=== PATIENT | female | born 1935 | race Hispanic/Latino ===

== ENCOUNTER 2017-07-02 11:41 | Day surgery (SDC) | payer MEDICARE ==
[2017-07-02] MEDS ORDERED: Sodium Chloride 0.9% 20 ML ONE (11:58)
[2017-07-02] MEDS ORDERED: Acetaminophen 500 MG TAB PO SCH (12:00)
[2017-07-02] MEDS ORDERED: diphenhydrAMINE 25 MG CAP PO SCH (12:00)
[2017-07-02 18:36] VITALS: BP 169/72; TEMP 97.6
[2017-07-02 19:49] LABS: Acanthocytes SLIGHT = 1-5 cells (100X) (None Seen); Anisocytosis SLIGHT = 6-15 cells (100X) (0-5/hpf); Hematocrit 28.4 % (36.0-47.0); Hypochromia SLIGHT = 6-15 cells (100X) (0-5/hpf); Mean Platelet Volume 8.9 fL (7.4-10.4); Neutrophil 78 % (42-75); Ovalocytes SLIGHT = 2-5 cells (100X) (0-1/hpf); Red Blood Cell (RBC) Count 2.86 mill/uL (4.20-5.40); White Blood Cell (WBC) Count 4.1 thou/uL (4.8-10.8)
== END 2017-07-02 18:44 | disposition home or self-care (01) ==
LOC: ONC/OP 11:41
PROVIDERS: ATTEND Nurse Practitioner Acute Care
PROC: 30233N1 Transfusion of Nonautologous Red Blood Cells into Peripheral Vein, Percutaneous Approach (ICD-10-PCS; principal; 2017-07-02)
DX: D64.9 Anemia, unspecified (principal); D69.59 Other secondary thrombocytopenia; E11.21 Type 2 diabetes mellitus with diabetic nephropathy; E11.22 Type 2 diabetes mellitus with diabetic chronic kidney disease; N18.4 Chronic kidney disease, stage 4 (severe); I25.10 Atherosclerotic heart disease of native coronary artery without angina pectoris; M19.90 Unspecified osteoarthritis, unspecified site; D63.1 Anemia in chronic kidney disease; E11.51 Type 2 diabetes mellitus with diabetic peripheral angiopathy without gangrene; F41.8 Other specified anxiety disorders; M54.5 Low back pain; G89.29 Other chronic pain; Z79.02 Long term (current) use of antithrombotics/antiplatelets; Z79.82 Long term (current) use of aspirin; Z79.899 Other long term (current) drug therapy; Z88.8 Allergy status to other drugs, medicaments and biological substances; Z98.49 Cataract extraction status, unspecified eye; Z95.1 Presence of aortocoronary bypass graft; Z90.49 Acquired absence of other specified parts of digestive tract; Z98.890 Other specified postprocedural states
CPT/HCPCS: 36430; 85025; 86850; 86900; 86901; A4216; P9016

== ENCOUNTER 2017-07-28 09:17 | Day surgery (SDC) | payer MEDICARE ==
[2017-07-28] MEDS ORDERED: Sodium Chloride 0.9% 20 ML ONE (09:34)
[2017-07-28] MEDS ORDERED: Acetaminophen 500 MG TAB PO SCH (10:00)
[2017-07-28] MEDS ORDERED: diphenhydrAMINE 25 MG CAP PO SCH (10:00)
[2017-07-28 17:17] VITALS: BP 194/85; TEMP 97.8
[2017-07-28 17:45] LABS: #Eosinphils 0.2 thou/uL (0.0-0.7); #Lymphocytes 0.7 thou/uL (1.20-3.40); #Monocytes 0.5 thou/uL (0.11-0.59); #Neutrophils 4.2 thou/uL (1.40-6.50); %Basophils 0.5 % (0.0-1.0); %Lymphocytes 12.4 % (21.0-51.0); %Monocytes 8.2 % (0.0-10.0); Mean Platelet Volume 8.3 fL (7.4-10.4); Red Blood Cell (RBC) Count 3.39 mill/uL (4.20-5.40); White Blood Cell (WBC) Count 5.5 thou/uL (4.8-10.8)
== END 2017-07-28 18:01 | disposition home or self-care (01) ==
LOC: ONC/OP 09:17
PROVIDERS: ATTEND Internal Medicine Medical Oncology
PROC: 30233N1 Transfusion of Nonautologous Red Blood Cells into Peripheral Vein, Percutaneous Approach (ICD-10-PCS; principal; 2017-07-28)
DX: D64.9 Anemia, unspecified (principal); D69.6 Thrombocytopenia, unspecified; E11.22 Type 2 diabetes mellitus with diabetic chronic kidney disease; N18.4 Chronic kidney disease, stage 4 (severe); E11.21 Type 2 diabetes mellitus with diabetic nephropathy; E11.51 Type 2 diabetes mellitus with diabetic peripheral angiopathy without gangrene; E78.5 Hyperlipidemia, unspecified; M19.90 Unspecified osteoarthritis, unspecified site; I25.10 Atherosclerotic heart disease of native coronary artery without angina pectoris; Z88.8 Allergy status to other drugs, medicaments and biological substances; Z95.1 Presence of aortocoronary bypass graft; Z90.49 Acquired absence of other specified parts of digestive tract; Z98.890 Other specified postprocedural states
CPT/HCPCS: 36415; 36430; 85025; 86850; 86900; 86901; A4216; P9016

== ENCOUNTER 2017-09-25 12:36 | Emergency (ER) | payer MEDICARE ==
[2017-09-25 13:10] LABS: Mean Corpuscular HGB CONC 30.6 g/dL (32.0-36.0); Mean Corpuscular Hemoglobin 32.3 pg (27.0-31.0); RBC Distribution Width 16.8 % (11.5-14.5); Red Blood Cell (RBC) Count 2.78 mill/uL (4.20-5.40); White Blood Cell (WBC) Count 5.4 thou/uL (4.8-10.8)
[2017-09-25 13:29] LABS: ALT (SGPT) 20 U/L (8-55); AST (SGOT) 25 U/L (5-34); Albumin 3.1 g/dL (3.4-4.8); Alkaline Phosphatase 94 U/L (40-150); Anion Gap 12 mmol/L (10-20); BUN (Urea Nitrogen) 75 mg/dL (9.8-20.1); Bilirubin, Total 0.6 mg/dL (0.2-1.2); Calc. Creatinine Clearance 0 mL/min (70-130); Calcium 8.6 mg/dL (7.8-10.44); Carbon Dioxide 17 mmol/L (23-31); Chloride 111 mmol/L (98-107); Estimated GFR-MDRD 14; Globulin 3.6 g/dL (2.4-3.5); Glucose 165 mg/dL (83-110); Potassium 5.1 mmol/L (3.5-5.1); Protein, Total 6.7 g/dL (6.0-8.3); Sodium 135 mmol/L (136-145)
[2017-09-25 13:30] LABS: #Eosinphils 0.1 thou/uL (0.0-0.7); #Lymphocytes 0.8 thou/uL (1.20-3.40); #Monocytes 0.5 thou/uL (0.11-0.59); %Basophils 0.5 % (0.0-1.0); %Eosinophils 2.7 % (0.0-10.0); %Lymphocytes 13.8 % (21.0-51.0); %Monocytes 8.9 % (0.0-10.0); %Neutrophils 74.1 % (42.0-75.0); Anisocytosis SLIGHT = 6-15 cells (100X) (0-5/hpf); MDiff Complete? YES; Macrocytosis SLIGHT = 6-15 cells (100X) (0-5/hpf); Mean Platelet Volume 9.3 fL (7.4-10.4); PLT Morphology Comment Appears Decreased; Platelet Count 77 thou/uL (130-400)
[2017-09-25 14:19] LABS: Bilirubin Small (Negative); Blood, Urine Negative (Negative); Clarity CLOUDY (Clear); Glucose, Urine (Dipstick) Negative (Negative); Leukocyte Negative (Negative); Nitrite Negative (Negative); Protein, Urine (Dipstick) 300 mg/dL (Neg-Trace); Specific Gravity, Urine 1.019 (1.002-1.036); pH, Urine 5.5 (5.0-9.0)
[2017-09-25 14:21] LABS: RBC/HPF 0-3 HPF (0-3)
[2017-09-25 14:22] LABS: Pathc Cast-AUWi Flag 3.52 (0-2.49); Yeast-AUWi Flag 67.3 (0-25.0)
[2017-09-25 14:32] LABS: Bacteria/HPF 2+ HPF (None Seen); Hyaline Casts/LPF 0-3 HYALINE CAST LPF (0-3 Hyaline); Manual Microscopic Reviewed? No Path Casts Seen; Renal Epithelial None Seen HPF (0-3); Transitional Epithelial NONE SEEN HPF (0-3); Yeast-All Forms None Seen HPF (None Seen)
== END 2017-09-25 15:44 | disposition home or self-care (01) ==
LOC: ERS 12:36
DX: G25.9 Extrapyramidal and movement disorder, unspecified (principal); D64.9 Anemia, unspecified; E11.9 Type 2 diabetes mellitus without complications; I25.10 Atherosclerotic heart disease of native coronary artery without angina pectoris; I10 Essential (primary) hypertension; M19.90 Unspecified osteoarthritis, unspecified site; I25.2 Old myocardial infarction; F41.9 Anxiety disorder, unspecified; F32.9 Major depressive disorder, single episode, unspecified; Z79.82 Long term (current) use of aspirin; Z79.4 Long term (current) use of insulin; Z79.899 Other long term (current) drug therapy
CPT/HCPCS: 36415; 51701; 80053; 81003; 81015; 85025; 93005; A4353

== ENCOUNTER 2017-10-14 15:02 | Day surgery (SDC) | payer MEDICARE ==
[2017-10-14 15:48] VITALS: BMI 30.9
[2017-10-14] MEDS ORDERED: Sodium Chloride 0.9% 10 ML ONE (15:53)
[2017-10-14] MEDS ORDERED: diphenhydrAMINE 25 MG CAP PO SCH (18:45)
[2017-10-14] MEDS ORDERED: Acetaminophen 500 MG TAB PO SCH (18:45)
[2017-10-14] MEDS ORDERED: FLU VACC TS2017-18 (>65YR) 0.5 ML SYRINGE IM ONE (21:00)
[2017-10-14] MEDS ORDERED: Isosorbide Dinitrate 20 MG TAB PO SCH (22:30)
[2017-10-14] MEDS ORDERED: hydrALAZINE 25 MG TAB PO SCH (22:30)
[2017-10-14] MEDS ORDERED: Carvedilol 6.25 MG TAB PO SCH (22:30)
[2017-10-14] MEDS ORDERED: HYDROcodone/Acetaminophen 5/325 mg Tablet PO PRN (22:30)
[2017-10-15 00:48] VITALS: BP 172/73; TEMP 97.4
[2017-10-15 01:15] LABS: #Basophils 0.1 thou/uL (0.0-0.2); #Eosinphils 0.2 thou/uL (0.0-0.7); #Lymphocytes 0.8 thou/uL (1.20-3.40); #Monocytes 0.5 thou/uL (0.11-0.59); #Neutrophils 4.1 thou/uL (1.40-6.50); %Basophils 0.9 % (0.0-1.0); %Eosinophils 4.3 % (0.0-10.0); %Lymphocytes 14.6 % (21.0-51.0); %Monocytes 9.1 % (0.0-10.0); %Neutrophils 71.1 % (42.0-75.0); Hemoglobin 10.4 g/dL (12.0-16.0); Mean Corpuscular Hemoglobin 31.5 pg (27.0-31.0); Mean Platelet Volume 8.4 fL (7.4-10.4); PLT Morphology Comment Appears Decreased; Platelet Count 114 thou/uL (130-400); RBC Distribution Width 17.6 % (11.5-14.5); Red Blood Cell (RBC) Count 3.31 mill/uL (4.20-5.40); White Blood Cell (WBC) Count 5.8 thou/uL (4.8-10.8)
[2017-10-15] MEDS ORDERED: hydrALAZINE 25 MG TAB PO SCH (09:00)
[2017-10-15] MEDS ORDERED: Carvedilol 6.25 MG TAB PO SCH (09:00)
[2017-10-15] MEDS ORDERED: Isosorbide Dinitrate 20 MG TAB PO SCH (09:00)
== END 2017-10-15 01:08 | disposition home or self-care (01) ==
LOC: ONC/OP 15:02 → 3SE 15:09 → ONC/OP 10-15 01:08
PROVIDERS: ATTEND Internal Medicine Medical Oncology
PROC: 30233N1 Transfusion of Nonautologous Red Blood Cells into Peripheral Vein, Percutaneous Approach (ICD-10-PCS; principal; 2017-10-14)
DX: D64.9 Anemia, unspecified (principal); D69.59 Other secondary thrombocytopenia; Z88.8 Allergy status to other drugs, medicaments and biological substances; Z79.82 Long term (current) use of aspirin; Z79.02 Long term (current) use of antithrombotics/antiplatelets; Z79.4 Long term (current) use of insulin; Z79.899 Other long term (current) drug therapy
CPT/HCPCS: 36415; 36430; 85025; 86850; 86900; 86901; 90471; 90682; A4216; G0008; P9016; Q2036

== ENCOUNTER 2017-10-19 20:55 | Inpatient (IN) | payer MEDICARE ==
[2017-10-19 21:17] LABS: #Eosinphils 0.2 thou/uL (0.0-0.7); #Lymphocytes 0.9 thou/uL (1.20-3.40); #Monocytes 0.5 thou/uL (0.11-0.59); #Neutrophils 4.3 thou/uL (1.40-6.50); %Basophils 0.7 % (0.0-1.0); %Eosinophils 4.1 % (0.0-10.0); %Lymphocytes 14.4 % (21.0-51.0); %Monocytes 8.1 % (0.0-10.0); %Neutrophils 72.6 % (42.0-75.0); Hemoglobin 11.9 g/dL (12.0-16.0); Mean Corpuscular HGB CONC 31.1 g/dL (32.0-36.0); Mean Corpuscular Hemoglobin 31.5 pg (27.0-31.0); Mean Platelet Volume 7.6 fL (7.4-10.4); Platelet Count 152 thou/uL (130-400); RBC Distribution Width 18.3 % (11.5-14.5); Red Blood Cell (RBC) Count 3.77 mill/uL (4.20-5.40)
[2017-10-19 21:25] LABS: INR-International Normal Ratio 1.3; Prothrombin Time 16.9 SEC (12.0-14.7)
[2017-10-19 21:26] LABS: PTT 44.4 SEC (22.9-36.1)
[2017-10-19 21:41] LABS: ALT (SGPT) 22 U/L (8-55); AST (SGOT) 22 U/L (5-34); Albumin 3.3 g/dL (3.4-4.8); Alkaline Phosphatase 128 U/L (40-150); Anion Gap 16 mmol/L (10-20); BUN (Urea Nitrogen) 95 mg/dL (9.8-20.1); Bilirubin, Total 0.5 mg/dL (0.2-1.2); Calc. Creatinine Clearance 0 mL/min (70-130); Calcium 8.7 mg/dL (7.8-10.44); Carbon Dioxide 13 mmol/L (23-31); Chloride 116 mmol/L (98-107); Estimated GFR-MDRD 10; Globulin 4.4 g/dL (2.4-3.5); Glucose 93 mg/dL (83-110); Lipase 5 U/L (8-78); Magnesium 2.3 mg/dL (1.6-2.6); Potassium 5.7 mmol/L (3.5-5.1); Protein, Total 7.7 g/dL (6.0-8.3); Sodium 139 mmol/L (136-145)
[2017-10-19 21:45] LABS: CKMB 2.3 ng/mL (0-6.6); Troponin I 0.017 ng/mL (< 0.028)
--- NOTE | 2017-10-19 21:46 | RAD ---
PORTABLE CHEST ONE VIEW: Date: 10-19-17 Time: 9:13 p.m. History: Chest pain. FINDINGS/IMPRESSION: Comparison is made with exam of 08-07-16. Changes of median sternotomy are again seen. The heart size is borderline. The aorta is tortuous. Chr onic changes are present in the lungs bilaterally. No lobar consolidation, pneumothoraces, ivone pulm onary edema or large effusions are seen. POS: [facility]
[2017-10-19 23:05] LABS: Bilirubin Negative (Negative); Blood, Urine Moderate (Negative); Clarity TURBID (Clear); Glucose, Urine (Dipstick) Negative (Negative); Leukocyte Large (Negative); Nitrite Negative (Negative); Protein, Urine (Dipstick) 100 mg/dL (Neg-Trace); Specific Gravity, Urine 1.016 (1.002-1.036); Urobilinogen 0.2 mg/dL (0.2-1.0); pH, Urine 5.5 (5.0-9.0)
[2017-10-19 23:06] LABS: Bacteria/HPF 3+ HPF (None Seen); Squamous Epithelial 21-50 HPF (0-3)
[2017-10-19 23:07] LABS: Pathc Cast-AUWi Flag 889.53 (0-2.49); Yeast-AUWi Flag 52.5 (0-25.0)
[2017-10-19 23:08] LABS: RBC/HPF GREATER THAN 50-TNTC HPF (0-3)
[2017-10-19] MEDS ORDERED: Dextrose 50% Abboject 50 ML SYRINGE SLOW IVP PRN (23:09)
[2017-10-19] MEDS ORDERED: Dextrose 5% in Water 1,000 ML IV PRN (23:09)
[2017-10-19] MEDS ORDERED: HumaLOG 300 UNITS/3 ML VIAL SC PRN (23:09)
[2017-10-19] MEDS ORDERED: Sodium Bicarbonate 2.5 MEQ/5 ML VIAL ONE (23:10)
[2017-10-19] MEDS ORDERED: Furosemide 40 MG/4 ML VIAL ONE (23:10)
[2017-10-19 23:11] LABS: Hyaline Casts/LPF NONE SEEN LPF (0-3 Hyaline)
[2017-10-19] MEDS ORDERED: Acetaminophen 325 MG TAB PO PRN (23:11)
[2017-10-19] MEDS ORDERED: Ondansetron HCl/PF 4 MG/2 ML Vial IVP PRN (23:11)
[2017-10-19] MEDS ORDERED: Sodium Bicarb 50 MEQ/50 ML Abboject 8.4% SYRINGE ONE (23:11)
[2017-10-19] MEDS ORDERED: Insulin Regular 300 UNITS/3 ML VIAL ONE (23:16)
[2017-10-19] MEDS ORDERED: Dextrose 50% Abboject 50 ML SYRINGE ONE (23:16)
--- NOTE | 2017-10-19 23:37 | CT ---
CT STONE PROTOCOL: History: Flank pain. FINDINGS: Lack of IV and oral contrast studies decrease the sensitivity of the exam of solid organs and bowel. A small right and moderate left pleural effusion are seen. No free air or free fluid is noted in the abdomen or pelvis. There is edema in the subcutaneous fat of the wall of the abdomen and pelvis exten ding into the gluteal regions and the lower extremities. There are vascular calcifications without evidence aneurysm of the abdominal aorta. There are post op changes of cholecystectomy. A small fat containing lower anterior abdominal wall hernia is present. There are degenerative changes in the spine. No calculi are seen in the kidneys, ureters, or urinary bladder. No hydroureteronephrosis noted on either side. IMPRESSION: 1. No CT evidence of urinary calculi or obstruction. 2. Bilateral pleural effusions. POS: [facility]
[2017-10-19] MEDS ORDERED: Calcium Chloride 13.6 MEQ in Sodium Chloride 0.9% 100 ML IVPB SCH (23:45)
--- NOTE | 2017-10-19 23:57 | CT ---
CT BRAIN WITHOUT CONTRAST: History: Altered mental status. Tremors. FINDINGS: Comparison made with exam of 05-17-15. 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 The ventricular size is stable and the basilar cisterns patent. No ev idence of acute infarct, hemorrhage, midline shift, or abnormal extraaxial fluid collections. The karlee tricular size appropriate and the basal cisterns patent. Bony calvarium is intact. There is mild muco michael disease in the paranasal sinuses. IMPRESSION: No CT evidence of acute intracranial process. POS: [facility]
[2017-10-20] MEDS ORDERED: Milk Of Magnesia 30 ML UDCUP PO PRN (00:12)
[2017-10-20] MEDS ORDERED: Guaifenesin DM 100-10/5 ML UDCUP PO PRN (00:12)
[2017-10-20 01:17] LABS: Troponin I 0.015 ng/mL (< 0.028)
--- NOTE | 2017-10-20 02:16 | HP ---
Admission Date correction: October 19, 2017. PRIMARY CARE PHYSICIAN: Deena Ward M.D. PRESENTING COMPLAINT: Confusion. HISTORY OF PRESENT ILLNESS: Ms. Wen York is an 82-year-old female with stage 4 CKD, CHF, type 2 diabetes mellitus, CAD, status post 3 stents, hypertension, history of MIs, who presented to the emergency room with acute confusion. According to her daughter, she was brought to the emergency room last month for shakes and jerky movements. Her workup then was negative and she was sent home; however, she reports since then she has been progressively getting worse and would have episodes of "facing out" every once in a while. Earlier today, she was found to be unresponsive to commands and speech and she was brought to the emergency room. There is no reported history of fever, chills, chest pain, shortness of breath. PAST MEDICAL HISTORY: As stated in the HPI. PAST SURGICAL HISTORY: Cataract surgery, cholecystectomy, carpal tunnel in 1992 , back surgery in 1991, CABG in 2006. FAMILY HISTORY: Reviewed and noncontributory. SOCIAL HISTORY: Does not drink alcohol, smoke cigarettes or use illicit drugs. ALLERGIES: DILTIAZEM, GLIPIZIDE, METFORMIN, METOPROLOL, PROMETHAZINE. REVIEW OF SYSTEMS: Unable to obtain due to patient's altered mental status. PHYSICAL EXAMINATION: VITAL SIGNS: Within normal limits. GENERAL: In mild distress from pain, lying comfortably in bed. HEENT: Normocephalic, atraumatic. Not pale, anicteric. PERRLA, EOMI. Dry mucous membranes. RESPIRATORY: Vesicular breath sounds bilaterally. No wheezes or rales. CARDIOVASCULAR: S1, S2 only. No murmurs, rubs or gallops. Regular rate and rhythm. NECK: Supple. No JVD. Full range of movement. ABDOMEN: Lower abdominal tenderness without guarding or rebound. Bowel sounds positive. No hepatosplenomegaly. MUSCULOSKELETAL: No obvious deformity. No edema. SKIN: Chronic venous stasis ulcers of lower extremities bilaterally, worse on the right, with 3 to 4 obvious ulcers, covered in, clean and dry dressing. NEUROLOGIC: Lethargic, oriented to time and place. Unable to fully cooperate with the examination due to likely combination of lethargy and acute encephalopathy. PSYCHIATRIC: Unable to cooperate. LABORATORY DATA: CBC was largely unremarkable. INR was 1.3. Chemistry showed potassium of 5.7 with BUN and creatinine of 95/4.4. BNP was 2500. Troponin initially 0.017. TSH 3.0254. Chest x-ray showed no pulmonary vascular congestion. Urinalysis revealed turbid yellow urine with leukocyte esterase increased WBC and white blood cell count and bacteria. Home Medications: Reviewed and charted. ASSESSMENT AND PLAN: 1. Acute encephalopathy, likely secondary to urinary tract infection. She had abdominal tenderness. CT abdomen showed no pathology. Urinalysis was also grossly abnormal. She has been started on IV levofloxacin. Urine and blood cultures have been taken. We will follow up on the results. 2. History of diastolic congestive heart failure. Her BNP was elevated on arrival, but clinically does not look to be in acute congestive heart failure, even though she has elevated BNP. Her mucous membranes are also dry. She has received 1 dose of IV furosemide in the emergency room. We will hold further doses and have Cardiology evaluate in the morning. 3. Acute kidney injury on chronic kidney disease, stage 4. The patient presents with acute encephalopathy and seems to have had poor p.o. intake with some dry mucous membranes on examination. Nephrology will be consulted. She received 1 dose of furosemide. We will follow up a.m. creatinine. If improving , then might continue on furosemide. Otherwise, she might actually need to be hydrated. 4. Type 2 diabetes mellitus. We will place on sliding scale insulin, fingerstick glucose before meals and at bedtime with diabetic diet and hypoglycemia protocol. 5. Coronary artery disease, status post coronary artery bypass graft. She is currently chest pain free. We will resume home medications once has been confirmed. 6. Hyperlipidemia. We will resume atorvastatin. 7. We will monitor ins and outs and weigh the patient daily as well. MTDD
[2017-10-20 04:15] LABS: #Basophils 0.1 thou/uL (0.0-0.2); #Eosinphils 0.2 thou/uL (0.0-0.7); #Lymphocytes 0.6 thou/uL (1.20-3.40); #Monocytes 0.4 thou/uL (0.11-0.59); #Neutrophils 3.8 thou/uL (1.40-6.50); %Eosinophils 3.6 % (0.0-10.0); %Lymphocytes 11.6 % (21.0-51.0); %Monocytes 8.6 % (0.0-10.0); %Neutrophils 75.1 % (42.0-75.0); Hemoglobin 10.3 g/dL (12.0-16.0); Mean Corpuscular HGB CONC 31.5 g/dL (32.0-36.0); Mean Corpuscular Hemoglobin 31.2 pg (27.0-31.0); Mean Corpuscular Volume 99.1 fl (81.0-99.0); Mean Platelet Volume 7.7 fL (7.4-10.4); Platelet Count 134 thou/uL (130-400)
[2017-10-20 04:25] LABS: Anion Gap 13 mmol/L (10-20); BUN (Urea Nitrogen) 95 mg/dL (9.8-20.1); Calc. Creatinine Clearance 11 mL/min (70-130); Calcium 9.1 mg/dL (7.8-10.44); Carbon Dioxide 17 mmol/L (23-31); Chloride 116 mmol/L (98-107); Estimated GFR-MDRD 10; Glucose 96 mg/dL (83-110); Potassium 4.9 mmol/L (3.5-5.1); Sodium 141 mmol/L (136-145)
[2017-10-20 04:31] LABS: Troponin I 0.016 ng/mL (< 0.028)
[2017-10-20] MEDS ORDERED: Furosemide 20 MG/2 ML VIAL SLOW IVP SCH (06:00)
[2017-10-20 07:51] VITALS: BMI 31.7
[2017-10-20] MEDS ORDERED: Non-Formulary Item 1 EACH (Gluc Su/Chondro Su A/Vit C/Mn [Glucosamine 1,500 Complex Capsu PO SCH (09:00)
[2017-10-20] MEDS ORDERED: Epoetin (ESRD) 10,000 UNITS/ML VIAL SC SCH (09:00)
[2017-10-20] MEDS: Heparin 5,000 UNITS/ML VIAL SC SCH ×3 (09:26→21:35)
[2017-10-20] MEDS: Fish Oil 1,000 MG CAP PO SCH ×2 (09:26→21:34)
[2017-10-20] MEDS: Folic Acid/Vit B Comp W-C PO SCH ×2 (09:26→21:35)
[2017-10-20] MEDS: Sodium Bicarbonate Tab 325 MG TAB PO SCH ×2 (09:27→21:35)
[2017-10-20] MEDS: Docusate 100 MG CAP PO SCH ×2 (09:27→21:36)
[2017-10-20] MEDS: Famotidine 20 MG TAB PO SCH (09:27)
[2017-10-20] MEDS: Ferrous Sulfate 325 MG TAB PO SCH ×2 (09:27→17:27)
[2017-10-20] MEDS: Gabapentin 300 MG CAP PO SCH ×2 (09:27→21:34)
[2017-10-20] MEDS: Aspirin 81 mg Enteric Coated Tablet PO SCH (09:28)
[2017-10-20] MEDS: Isosorbide Dinitrate 20 MG TAB PO SCH ×2 (09:28→21:34)
[2017-10-20] MEDS: hydrALAZINE 25 MG TAB PO SCH ×2 (09:28→21:35)
[2017-10-20] MEDS: Clopidogrel Bisulfate 75 MG TAB PO SCH (09:28)
[2017-10-20] MEDS: Carvedilol 6.25 MG TAB PO SCH ×2 (09:29→21:36)
[2017-10-20] MEDS: HumaLOG 300 UNITS/3 ML VIAL SC SCH ×2 (09:29→21:36)
[2017-10-20] MEDS ORDERED: Sodium Chloride 0.9% 1,000 ML IV SCH (09:45)
--- NOTE | 2017-10-20 10:07 | PRG ---
DATE OF SERVICE: 10/20/2017 SUBJECTIVE: Ms. York is an 82-year-old female who was admitted for mental status change s. She was also noted to have an acute kidney injury on top of her chronic renal failure. Her basel ine creatinine is in the mid 3s, it is currently more than 4 mg percent. On exam, the patient looks dehydrated. According to the daughter, she has decreased p.o. intake in the last several days. We are being consulted for further management of this acute kidney injury on top of her chronic renal failure. REVIEW OF SYSTEMS: Decreased appetite. No nausea, no vomiting. Decreased energy level. Positive f or confusion. No diarrhea, no constipation, no hematochezia, no melena, no hematemesis, no fever or chills. No dysuria. No chest pain or shortness of breath. No headache, no diplopia. MEDICATIONS: Currently on [place] 10/325 q.4; Elavil 25 mg at bedtime; Ecotrin 81 mg tab daily; Lipito r 20 mg at bedtime; Plavix 75 mg once a day; Coreg 6.25 mg p.o. b.i.d.; Epogen 10,000 units subcu Fri, Friday, and Friday; ferrous sulfate 325 mg once a day; fish oil 2000 mg p.o. b.i.d.; furosemi de 20 mg IV q.12; Humalog as directed; heparin 5000 units subcu b.i.d.; Levaquin 250 mg IV daily. PAST MEDICAL HISTORY: 1. Chronic renal failure secondary to a possible diabetic nephropathy. 2. Status post congestive heart failure. 3. Coronary artery disease. 4. Type 2 diabetes mellitus. 5. Chronic anemia. 6. Peripheral vascular disease. 7. Status post TIA. 8. History of sciatica. 9. Status post pneumonia. 10. Chronic obstructive pulmonary disease. PAST SURGICAL HISTORY: 1. Status post back surgery. 2. Status post intubation. 3. Status post appendectomy. 4. Status post eye surgery. 5. Status post stent placement of the lower extremities. 6. Status post cardiac catheterization. 7. Status post CABG. 8. Status post cholecystectomy. 9. Status post cataract surgery. 10. Status post carpal tunnel repair. 11. Status post upper and lower GI endoscopy. 12. Status post bladder suspension repair. 13. Status post left ankle fracture. SOCIAL HISTORY: Lives in [place], lives with her daughter. She is . Status post blood transfu kathrine. 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 Education, 2nd grade. Alcohol none. Recent smoking. Four children. ALLERGIES: None. IMMUNIZATIONS: Up to date. HOSPITALIZATIONS: Please see past medical history. FAMILY HISTORY: No family history of ESRD. PHYSICAL EXAMINATION: VITAL SIGNS: Blood pressure is noted at 130/70, heart rate 70. GENERAL: Awake, alert, comfortable, not in distress. SKIN: Adequate turgor. HEENT: Slightly pale conjunctivae, anicteric sclerae. NECK: No neck mass, no carotid bruits, no JVD. CHEST: No deformities. LUNGS: Decreased breath sounds. HEART: Normal sinus rhythm. No murmur, no gallops, no rubs. ABDOMEN: Globular, soft, nontender, no masses. EXTREMITIES: No edema, no deformities. LABORATORY DATA: Laboratories of 10/20/2017 were reviewed. ASSESSMENT AND PLAN: 1. Acute kidney injury on top of her chronic renal failure, consider superimposed prerenal azotemia on top of her chronic renal failure. We will initiate normal saline at 75 mL per hour. Please note that chest x-ray was reviewed and no overt congestive heart failure was noted. 2. Anemia, on 3 times a week, Epogen. My bias is to hold it off temporarily since the hemoglobin is now 10.3. 3. Due to her worsening renal dysfunction, furosemide will be placed on hold. We will be rechecking another basic metabolic panel and CBC in a.m. There is no indication for dialysis with this patient .
--- NOTE | 2017-10-20 10:40 | CON ---
DATE OF CONSULTATION: 10/20/2017 She is a 4 feet 11 inches, 157, BMI 31, obese female. She is 82 years old. Her daugh arsenio is at the bedside who gave adequate and extensive history. She has seen Dr. Goff in the offic e before numerous times. States that she basically came in because she was weak, has some back pain. Daughter thought somethi ng was rather unusual. She has had since admission a CT of the abdomen, found to have no renal calculi with bilateral pleura l effusion. Chest x-ray shows cardiomegaly with a small pleural effusion. A CT head which shows no other abnormality to speak of. The patient is nonsmoker who denies any chest pain, chills or sweats. According to the daughter with the help of a walker she is able to walk maybe 200 yards. She lives with her daughter. No fever or chills. No coughing or wheezing. PAST MEDICAL HISTORY: Extensively outlined; diabetes, CHF, renal failure, coronary disease, hyperten kathrine. PAST SURGICAL HISTORY: Bladder surgery, bypass surgery, carpal tunnel, cataracts, appendix, gallblad zoraida, previous tracheostomy, PEG 2011. MEDICATIONS: From home includes hydralazine 25, Zoloft 100, Protonix 40, ISMO 30, insulin, Lasix 20 , aspirin, Coreg 6.25, atorvastatin 20, amitriptyline 25. ALLERGIES: Multiple; CARDIZEM, GLIPIZIDE, METFORMIN, METOPROLOL, PRAVACHOL, PROMETHAZINE. SOCIAL/FAMILY HISTORY: As noted. No alcohol or tobacco abuse. REVIEW OF SYSTEMS: Ten point negative. PHYSICAL EXAMINATION: GENERAL: Awake, alert, responsive. VITAL SIGNS: Blood pressure 150/80, pulse 80, respirations 18. CHEST: Chest revealed extensive rhonchi bilaterally. CARDIOVASCULAR: Normal S1, S2, no gallops. NEUROLOGIC: Awake and responsive, extensive stasis edema. X-RAY FINDINGS: Chest x-ray shows cardiomegaly, small pleural effusion. LABORATORY: Shows a white count 5000, H&H 10 and 32, platelet 135, creatinine is 4.2, BUN is 95. Urine shows too numerous to count WBCs and RBCs. IMPRESSION: 1. Acute mental status change, probably metabolic encephalopathy. 2. Worsening renal failure. 3. Congestive heart failure. 4. Morbid obesity. 5. Bronchitis. 6. Diabetes. 7. Coronary artery disease. 8. Severe deconditioning. Pulmonary will follow while in the IMCU. She has had multiple intubations in the past. She has seen Dr. Goff, probably all due to sepsis, metabolic encephalopathy, renal failure. PLAN: I agree with present antibiotic. Aggressive PT. We will follow. This is a consultation note, 70 minutes of which 50% was spent with direct patient care.
--- NOTE | 2017-10-20 16:47 | CON ---
DATE OF CONSULTATION: 10/20/2017 REASON FOR CONSULTATION: History of diastolic congestive heart failure and coronary artery disease a nd peripheral vascular disease, now altered mental status. HISTORY OF PRESENT ILLNESS: Ms. York is taken care of by her daughter, and her daughter does an excellent job taking care of her. Patient was doing okay on Friday, which was her birthday. Yeste , she became less responsive and finally unresponsive. Daughter also noted that she was not putt ing out much urine. She called in for help and she was brought to the emergency room and admitted. The patient currently is very sleepy, wakes up, but really cannot give much history. PAST MEDICAL HISTORY: 1. History of coronary artery disease. 2. History of renal insufficiency/renal failure. 3. History of diastolic heart failure. 4. Peripheral vascular disease. MEDICATIONS: Prior to admission included, 1. Aspirin. 2. Amitriptyline. 3. Gabapentin. 4. Plavix. 5. Atorvastatin. 6. Carvedilol. 7. Hydralazine. 8. Iron. 9. Furosemide 20 mg if needed daily. 10. Sodium bicarbonate 325 mg twice a day. REVIEW OF SYSTEMS: Currently not obtainable due to mental status change. FAMILY HISTORY: Negative for heart disease at a young age. PHYSICAL EXAMINATION: GENERAL: This is a pleasant 82-year-old woman, very sleepy, does awaken to verbal stimuli and no juan alberto st pain or pressure reported. VITAL SIGNS: Blood pressure 144/42, pulse 60-70, it is sinus rhythm, it is regular, sinus on the mon itor. HEENT: Sclerae nonicteric. Mouth mucous membranes moist. NECK: Supple, no lymphadenopathy. LUNGS: Clear. CARDIAC: Normal S1, normal S2. I do not hear murmur, rub, or gallop. ABDOMEN: Soft, nontender, no hepatosplenomegaly. EXTREMITIES: Warm, dry, no clubbing or cyanosis. There is no edema. HEMATOLOGIC: No unusual bruising. CARDIOVASCULAR: As outlined above. SKIN: Warm and dry. Peripheral pulses in her feet are markedly diminished. PERTINENT LABORATORY DATA: Her creatinine is 4.26. Previous creatinine was in September, was 3.1, ba seline seems to be closer to 3. Estimated GFR is 10. Hemoglobin is 10.3. ASSESSMENT: 1. Renal failure, acute on chronic, has gone from stage 3 to 4 to stage 5. 2. Congestive heart failure, diastolic, appears compensated. 3. Hypertension. 4. Iron deficiency anemia. PLAN: 1. Continue current medical regimen. 2. We will check iron levels tomorrow to see if she could benefit from intravenous iron. She has be en iron deficient in the past. 3. We will follow with you.
[2017-10-20] MEDS: Sodium Chloride 0.9% 1,000 ML IV SCH ×2 (17:27→21:37)
--- NOTE | 2017-10-20 18:57 | PDOC.PN ---
- Subjective Encounter Start Date: 10/20/17 Encounter Start Time: 13:20 Subjective: pt up in bed states she feels much better - Objective Resuscitation Status: Resuscitation Status FULL:Full Resuscitation Vital Signs & Weight: Vital Signs (12 hours) Temp Pulse Resp BP BP Pulse Ox 10/20/17 16:00 98.6 F 67 18 140/40 L 97 10/20/17 13:00 60 144/42 H 10/20/17 11:38 98.4 F 68 18 172/59 H 100 10/20/17 09:28 67 157/49 H 10/20/17 08:16 98.4 F 67 18 90/65 100 10/20/17 08:00 98.4 F 68 18 100 Weight Admit Weight 157 lb 9 oz Weight 157 lb 1 oz I&O: 10/19/17 10/20/17 10/21/17 06:59 06:59 06:59 Intake Total 260 480 Balance 260 480 Result Diagrams: 10/20/17 03:50 10/20/17 03:50 Additional Labs: Accuchecks 10/20/17 10/20/17 10/20/17 16:46 11:07 05:41 POC Glucose 103 55 L* 86 Phys Exam - Physical Examination HEENT: PERRLA Neck: no nodes Respiratory: no wheezing, no rales Cardiovascular: RRR, no significant murmur Gastrointestinal: soft, non-tender Musculoskeletal: edema present (right ankle) Dx/Plan - Plan * acute metabolic encephalopathy * uti * diastolic heart failure stable * grant on ckd * htn * dm type 2 * cad * * plan: urine cx indicates ecoli, will continue abx. continue to monitor creatinine. hh is stable. * will monitor blood sugars * continue asa/plavix Review of Systems - Review of Systems Eyes: negative: Pain, Vision Change, Conjunctivae Inflammation, Eyelid Inflammation, Redness, Other ENT: negative: Ear Pain, Ear Discharge, Nose Pain, Nose Discharge, Nose Congestion, Mouth Pain, Mouth Swelling, Throat Pain, Throat Swelling, Other Respiratory: negative: Cough, Dry, Shortness of Breath, Hemoptysis, SOB with Excertion, Pleuritic Pain, Sputum, Wheezing Cardiovascular: negative: chest pain, palpitations, orthopnea, paroxysmal nocturnal dyspnea, edema, light headedness, other - Medications/Allergies Allergies/Adverse Reactions: Allergies Allergy/AdvReac Type Severity Reaction Status Date / Time diltiazem Allergy Verified 10/20/17 01:07 glipizide Allergy Verified 10/20/17 01:07 metformin Allergy Verified 10/20/17 01:07 metoprolol Allergy Verified 10/20/17 01:07 pravastatin [From Pravachol] Allergy Verified 10/20/17 01:07 promethazine Allergy Verified 10/20/17 01:07 Medications: Current Medications Acetaminophen (Tylenol) 650 mg PO Q4H PRN PRN Reason: Headache/Fever or Pain Hydrocodone Bitart/Acetaminophen ([place] 10/325) 1 tab PO Q8H PRN PRN Reason: Moderate Pain (4-6) Amitriptyline HCl (Elavil) 25 mg PO HS [facility] Aspirin (Ecotrin) 81 mg PO DAILY [facility] Last Admin: 10/20/17 09:28 Dose: 81 mg Atorvastatin Calcium (Lipitor) 20 mg PO HS [facility] Carvedilol (Coreg) 6.25 mg PO BID [facility] Last Admin: 10/20/17 09:29 Dose: 6.25 mg Clopidogrel Bisulfate (Plavix) 75 mg PO DAILY [facility] Last Admin: 10/20/17 09:28 Dose: 75 mg Dextrose/Water (Dextrose 50%) 25 gm SLOW IVP PRN PRN PRN Reason: Hypoglycemia Docusate Sodium (Colace) 100 mg PO BID [facility] Last Admin: 10/20/17 09:27 Dose: Not Given Famotidine (Pepcid) 20 mg PO DAILY [facility] Last Admin: 10/20/17 09:27 Dose: 20 mg Ferrous Sulfate (Feosol) 325 mg PO BID[facility] Last Admin: 10/20/17 17:27 Dose: 325 mg Fish Oil (Fish Oil) 2,000 mg PO BID [facility] Last Admin: 10/20/17 09:26 Dose: 2,000 mg Gabapentin (Neurontin) 300 mg PO BID [facility] Last Admin: 10/20/17 09:27 Dose: 300 mg Glucagon (Glucagon) 1 mg IM PRN PRN PRN Reason: Hypoglycemia Guaifenesin/Dextromethorphan (Robitussin Dm) 15 ml PO Q4H PRN PRN Reason: Cough Heparin Sodium (Porcine) (Heparin) 5,000 units SC TID [facility] Last Admin: 10/20/17 15:32 Dose: 5,000 units Hydralazine HCl (Apresoline) 25 mg PO BID [facility] Last Admin: 10/20/17 09:28 Dose: 25 mg Dextrose/Water (D5w) 1,000 mls @ 0 mls/hr IV .Q0M PRN; As Directed PRN Reason: Hypoglycemia Levofloxacin 250 mg/ Device 50 mls @ 100 mls/hr IVPB Q24HR@2100 [facility] Sodium Chloride (Normal Saline 0.9%) 1,000 mls @ 90 mls/hr IV .Q11H7M [facility] Last Admin: 10/20/17 17:27 Dose: Not Given Insulin Human Lispro (Humalog) 3 units SC BID [facility] Last Admin: 10/20/17 09:29 Dose: 3 unit Isosorbide Dinitrate (Isordil) 30 mg PO BID [facility] Last Admin: 10/20/17 09:28 Dose: 30 mg Lactulose (Lactulose) 20 gm PO DAILYPRN PRN PRN Reason: Constipation Magnesium Hydroxide (Milk Of Magnesium) 30 ml PO DAILYPRN PRN PRN Reason: Constipation Ondansetron HCl (Zofran) 4 mg IVP Q6H PRN PRN Reason: Nausea/Vomiting Pantoprazole Sodium (Protonix) 40 mg PO DAILY [facility] Last Admin: 10/20/17 09:27 Dose: 40 mg Sertraline HCl (Zoloft) 100 mg PO HS [facility] Sodium Bicarbonate (Bicarbonate, Sodium) 325 mg PO BID [facility] Last Admin: 10/20/17 09:27 Dose: 325 mg Sodium Chloride (Flush - Normal Saline) 10 ml IVF Q12HR [facility] Last Admin: 10/20/17 09:26 Dose: 10 ml Sodium Chloride (Flush - Normal Saline) 10 ml IVF PRN PRN PRN Reason: Saline Flush Vitamin B Complex/Vit C/Folic Acid (Nephro-Cecile Tablet) 1 tab PO BID [facility] Last Admin: 10/20/17 09:26 Dose: 1 tab
--- NOTE | 2017-10-20 19:42 | RAD ---
RIGHT ANKLE TWO VIEWS: History: Pain, swelling right ankle. FINDINGS: Mild soft tissue swelling. Degenerative changes at the tibiotalar joint. No definite fracture seen on two view exam. Mild osteopenia is noted. Enthesophytes from the plantar calcaneus is noted. IMPRESSION: Osteopenia and degenerative change. No definite fracture identified. There is irregularity at the med ial malleolus, probably degenerative. If there is concern of fracture, recommend oblique views. POS: [facility]
[2017-10-20] MEDS: Amitriptyline HCl 25 MG TAB PO SCH (21:35)
[2017-10-20] MEDS: Atorvastatin Calcium 20 MG TAB PO SCH (21:36)
[2017-10-21 04:08] LABS: Iron 30 ug/dL (50-170); Iron Binding Capacity, Total 120 mcg/dL (265-497)
--- NOTE | 2017-10-21 09:15 | PRG ---
DATE OF SERVICE: 10/21/2017 She is better, less short of breath. PHYSICAL EXAMINATION: VITAL SIGNS: Blood pressure 154/43, sats 100% on room air, respirations 18, temperature 98. I's and O's 3435 in and output 735. CHEST: Chest reveals bilateral rhonchi. CARDIAC: Normal S1, S2, no gallops. ABDOMEN: Soft, no mass. She is growing E. coli sensitive to all the antibiotics. IMPRESSION: 1. Respiratory failure. 2. Morbid obesity. 3. Diabetes. 4. Severe deconditioning. 5. Baseline x-ray shows congestive heart failure. 6. Urinary tract infection. PLAN: She can be switched over to oral antibiotics. She can transfer out of the IMCU. I will follow while in the IMCU. Aggressive PT.
[2017-10-21] MEDS: Fish Oil 1,000 MG CAP PO SCH ×2 (09:23→21:23)
[2017-10-21] MEDS: Folic Acid/Vit B Comp W-C PO SCH ×2 (09:23→21:21)
[2017-10-21] MEDS: Aspirin 81 mg Enteric Coated Tablet PO SCH (09:24)
[2017-10-21] MEDS: Isosorbide Dinitrate 20 MG TAB PO SCH ×2 (09:24→21:22)
[2017-10-21] MEDS: Carvedilol 6.25 MG TAB PO SCH ×2 (09:24→21:23)
[2017-10-21] MEDS: Gabapentin 300 MG CAP PO SCH ×2 (09:24→21:22)
[2017-10-21] MEDS: Ferrous Sulfate 325 MG TAB PO SCH (09:24)
[2017-10-21] MEDS: Famotidine 20 MG TAB PO SCH (09:24)
[2017-10-21] MEDS: hydrALAZINE 25 MG TAB PO SCH ×2 (09:24→21:22)
[2017-10-21] MEDS: Clopidogrel Bisulfate 75 MG TAB PO SCH (09:25)
[2017-10-21] MEDS: Heparin 5,000 UNITS/ML VIAL SC SCH ×3 (09:25→21:21)
[2017-10-21] MEDS: Docusate 100 MG CAP PO SCH ×2 (09:25→21:24)
[2017-10-21] MEDS: Sodium Bicarbonate Tab 325 MG TAB PO SCH ×2 (09:26→21:22)
[2017-10-21] MEDS: Sodium Chloride 0.9% 1,000 ML IV SCH ×2 (09:28→10:03)
--- NOTE | 2017-10-21 09:56 | PRG ---
DATE OF SERVICE: 10/21/2017 SUBJECTIVE: Ms. York feels much better. She is much more awake and alert. PHYSICAL EXAMINATION: VITAL SIGNS: Blood pressure 155/43 and then 172/52. LUNGS: Clear now. CARDIAC: Normal S1, S2. ABDOMEN: Soft, nontender. EXTREMITIES: Only minimal edema. LABORATORY DATA: Iron levels revealed that her iron is low, but the ferritin is 331.9. ASSESSMENT: 1. Congestive heart failure, stable. 2. Hypertension, somewhat labile. 3. Renal insufficiency, no creatinine today. PLAN: 1. Reduce IV fluid, probably Hep-Lock tomorrow. 2. We will reduce iron to once a day as her iron stores appear adequate. 3. Consideration for stopping the fish oil as recent evidence indicates there may not be much benefi t.
[2017-10-21] MEDS: HumaLOG 300 UNITS/3 ML VIAL SC SCH ×2 (10:03→16:41)
[2017-10-21] MEDS: Cefdinir 300 MG CAP PO SCH (10:03)
--- NOTE | 2017-10-21 10:52 | PRG ---
DATE OF SERVICE: 10/21/2017 RENAL MEDICINE SUBJECTIVE: No new complaints. She is mentating much better. Renal function is stabilizing. She w as started on a low gentle volume repletion. No complaints, no chest pain, shortness of breath. OBJECTIVE: VITAL SIGNS: Blood pressure 172/52, heart rate 56, respiratory rate 18, pulse ox 100%, temperature 9 8.3. GENERAL: She is noted to be awake, alert, comfortable. SKIN: Adequate turgor. HEENT: Pinkish conjunctivae, anicteric sclerae. LUNGS: Clear breath sounds. HEART: Normal sinus rhythm. No murmur, no gallops, no rubs. ABDOMEN: Globular, soft, nontender. EXTREMITIES: No edema. MEDICATIONS: Of 10/21/2017 reviewed. LABORATORY DATA: 10/20/2017 showed a creatinine 4.26. On 10/21/2017 pending. ASSESSMENT AND PLAN: 1. Acute kidney injury on top of chronic renal failure. Continue supportive care, continue gentle v olume repletion. No indication for any dialytic intervention. We will recheck base met today. 2. Mental status change, resolved. This could have been from metabolic encephalopathy. Agree with current management.
[2017-10-21 10:56] LABS: #Eosinphils 0.4 thou/uL (0.0-0.7); #Lymphocytes 0.7 thou/uL (1.20-3.40); #Monocytes 0.4 thou/uL (0.11-0.59); #Neutrophils 4.5 thou/uL (1.40-6.50); %Basophils 0.8 % (0.0-1.0); %Eosinophils 5.8 % (0.0-10.0); %Monocytes 7.3 % (0.0-10.0); %Neutrophils 74.1 % (42.0-75.0); Hemoglobin 10.7 g/dL (12.0-16.0); Mean Corpuscular HGB CONC 31.6 g/dL (32.0-36.0); Mean Corpuscular Hemoglobin 31.5 pg (27.0-31.0); Mean Corpuscular Volume 99.7 fl (81.0-99.0); Mean Platelet Volume 7.6 fL (7.4-10.4); Platelet Count 146 thou/uL (130-400); RBC Distribution Width 18.5 % (11.5-14.5); Red Blood Cell (RBC) Count 3.39 mill/uL (4.20-5.40); White Blood Cell (WBC) Count 6.1 thou/uL (4.8-10.8)
[2017-10-21 11:18] LABS: Anion Gap 14 mmol/L (10-20); BUN (Urea Nitrogen) 80 mg/dL (9.8-20.1); Calc. Creatinine Clearance 13 mL/min (70-130); Carbon Dioxide 14 mmol/L (23-31); Chloride 115 mmol/L (98-107); Estimated GFR-MDRD 12; Glucose 153 mg/dL (83-110); Potassium 4.2 mmol/L (3.5-5.1); Sodium 139 mmol/L (136-145)
[2017-10-21] MEDS: HYDROcodone/Acetaminophen 10/325 mg Tablet PO PRN (16:30)
--- NOTE | 2017-10-21 21:15 | PDOC.PN ---
- Objective Resuscitation Status: Resuscitation Status FULL:Full Resuscitation Vital Signs & Weight: Vital Signs (12 hours) Temp Pulse Pulse Pulse Resp BP BP 10/21/17 15:53 66 66 184/79 H 10/21/17 15:28 97.7 F 66 20 10/21/17 15:27 97.7 F 66 20 10/21/17 11:15 98.2 F 64 20 10/21/17 09:24 56 L 172/52 H BP BP Pulse Ox 10/21/17 15:53 181/84 H 10/21/17 15:28 94 L 10/21/17 15:27 177/69 H 94 L 10/21/17 11:15 175/56 H 100 10/21/17 09:24 Weight Admit Weight 157 lb 9 oz Weight 157 lb 1 oz I&O: 10/20/17 10/21/17 10/22/17 06:59 06:59 06:59 Intake Total 260 3435 1000 Balance 260 3435 1000 Result Diagrams: 10/21/17 10:48 10/21/17 10:48 Additional Labs: Accuchecks 10/21/17 10/21/17 10/21/17 20:48 16:38 10:48 POC Glucose 125 H 172 H 136 H 10/21/17 05:47 POC Glucose 99 Dx/Plan - Plan * .
[2017-10-21] MEDS: Atorvastatin Calcium 20 MG TAB PO SCH (21:22)
[2017-10-21] MEDS: Amitriptyline HCl 25 MG TAB PO SCH (21:22)
[2017-10-22 04:41] LABS: Anion Gap 14 mmol/L (10-20); BUN (Urea Nitrogen) 78 mg/dL (9.8-20.1); Calc. Creatinine Clearance 13 mL/min (70-130); Calcium 8.2 mg/dL (7.8-10.44); Carbon Dioxide 14 mmol/L (23-31); Chloride 114 mmol/L (98-107); Estimated GFR-MDRD 12; Glucose 100 mg/dL (83-110); Potassium 4.2 mmol/L (3.5-5.1); Sodium 138 mmol/L (136-145)
[2017-10-22] MEDS: Sodium Chloride 0.9% 1,000 ML IV SCH (05:49)
[2017-10-22] MEDS ORDERED: Ferrous Sulfate 325 MG TAB PO SCH (08:00)
--- NOTE | 2017-10-22 08:50 | PQF ---
DATE: 10-21-17 ATTN: CARLITO RUSSO Please exercise your independent, professional judgment in responding to the clarification form. Clinical indicators are provided on the bottom of this form for your review Please check appropriate box(s): HEART FAILURE: A. TYPE: [ ] Systolic / HFrEF [ x ] Diastolic / HFpEF [ ] Combined Systolic / Diastolic B. ACUITY [ ] Acute [ ] Acute on Chronic [ x ] Chronic [ ] Other diagnosis [ ] Unable to determine In addition, please specify: Present on Admission (POA): [ ] Yes [ ] No [ ] Unable to determine For continuity of documentation, please document condition throughout progress notes and discharge summary. Thank You. CLINICAL INDICATORS - SIGNS / SYMPTOMS / LABS ER DIAGNOSIS: CHF EXACERBATION/FLUID OVERLOAD, ACUTE ON CHRONIC RENAL FAILURE , AMS, HYPERKALEMIA, METABOLIC ACIDOSIS, UTI BNP: 2584.7 H&P: HX OF CHF, HISTORY OF DIASTOLIC CONGESTIVE HEART FAILURE. HER BNP WAS ELEVATED ON ARRIVAL, BUT CLINICALLY DOES NOT LOOK TO BE IN ACUTE CONGESTIVE HEART FAILURE, EVEN THOUGH SHE HAS ELEVATED BNP. SHE HAS RECEIVED 1 DOSE OF IV FUROSEMIDE IN THE ER. CONSULT NOTE DR. KRISHNAMURTHY 10-20-17: CXR SHOWS CARDIOMEGALY, SMALL PLEURAL EFFUSION. CONGESTIVE HEART FAILURE, CONSULT NOTE DR. ZHU 10-20-17: CONGESTIVE HEART FAILURE, DIASTOLIC, APPEARS COMPENSATED. RISKS: ER: HX OF CHF DIASTOLIC, CAD, DM 2, HTN, IA, CABG H&P: SLAVA/CKD4, RENAL FAILURE ACUTE ON CHRONIC TREATMENTS: (MAR) LASIX IVP (MAR) COREG, ISOSORBIDE DINITRATE (This form is maintained as a part of the permanent medical record) 2014 [employer]. All Rights Reserved MARCOS [email or web address] Office: [phone] [facility]
[2017-10-22] MEDS: Cefdinir 300 MG CAP PO SCH (10:05)
[2017-10-22] MEDS: Folic Acid/Vit B Comp W-C PO SCH (10:06)
[2017-10-22] MEDS: Isosorbide Dinitrate 20 MG TAB PO SCH (10:06)
[2017-10-22] MEDS: Fish Oil 1,000 MG CAP PO SCH (10:06)
[2017-10-22] MEDS: Gabapentin 300 MG CAP PO SCH (10:07)
[2017-10-22] MEDS: Carvedilol 6.25 MG TAB PO SCH (10:08)
[2017-10-22] MEDS: hydrALAZINE 25 MG TAB PO SCH (10:08)
[2017-10-22] MEDS: Aspirin 81 mg Enteric Coated Tablet PO SCH (10:09)
[2017-10-22] MEDS: Docusate 100 MG CAP PO SCH (10:09)
[2017-10-22] MEDS: Clopidogrel Bisulfate 75 MG TAB PO SCH (10:09)
[2017-10-22] MEDS: Famotidine 20 MG TAB PO SCH (10:09)
[2017-10-22] MEDS: Sodium Bicarbonate Tab 325 MG TAB PO SCH ×2 (10:10→15:32)
[2017-10-22] MEDS: Heparin 5,000 UNITS/ML VIAL SC SCH ×2 (10:11→15:33)
[2017-10-22] MEDS: HumaLOG 300 UNITS/3 ML VIAL SC SCH ×2 (10:22→17:45)
[2017-10-22] MEDS: HYDROcodone/Acetaminophen 10/325 mg Tablet PO PRN ×2 (10:31→17:51)
--- NOTE | 2017-10-22 11:05 | PRG ---
DATE OF SERVICE: 10/22/2017 This morning she is better. PHYSICAL EXAMINATION: VITAL SIGNS: Blood pressure 173/74, sats 90% on room air, temperature is 98, respiration 20. CHEST: Chest revealed decreased breath sounds, no wheezing. CARDIAC: Normal S1, S2, no gallops. ABDOMEN: Abdomen is soft. LABORATORY DATA: White count 6,000, H&H 10 and 30, platelets normal. Creatinine 3.6. IMPRESSION: 1. Chronic renal failure. 2. Azotemia, much improved. 3. Respiratory failure, resolved. PLAN: Continue aggressive PT and supportive care, eventually placement. I will follow.
[2017-10-22] MEDS ORDERED: Furosemide 20 MG TAB PO PRN (15:51)
[2017-10-22 17:01] VITALS: BP 171/70; TEMP 97.9
--- NOTE | 2017-10-23 06:09 | DIS ---
DATE OF ADMISSION: 10/20/2017 DATE OF DISCHARGE: 10/22/2017 CHIEF COMPLAINT: Confusion. HOSPITAL COURSE: The patient is a pleasant 82-year-old female with a CKD of stage 4, type 2 diabetes , diastolic heart failure, coronary artery disease, status post 3 stents, hypertension, and history o f [place], who presented to the ER with acute confusion. The patient was seen at [facility] and initially was put in a surgical step down unit for closer monitoring. The patient was found to have a UTI, culture indicated E. coli sensitive to many antibiotics. The patient was also seen by Cardiol frandy and by Nephrology. The patient's mental status continued to improve. The patient was then trans ferred on the floor. The patient continued to improve. The patient was discharged home on ciproflox acin 250 mg daily for an additional 5 days. The patient will get home health and physical therapy as outpatient. The patient's home medications that were resumed were as the following: Hydralazine 25 mg p.o. b.i.d., vitamin B complex 1 p.o. b.i.d., sodium bicarbonate 325 p.o. b.i.d., Zoloft 100 mg a t bedtime, Protonix 40 mg daily, isosorbide 30 mg p.o. b.i.d., NovoLog 3 units subcu b.i.d., gabapent in 300 mg b.i.d., Lasix 40 mg daily p.r.n., iron 325 p.o. b.i.d., Plavix 75 mg p.o. b.i.d., Coreg 6.2 5 mg p.o. b.i.d., atorvastatin 20 mg at bedtime, aspirin 81 mg daily, and amitriptyline 25 mg p.o. at bedtime. The patient will follow up outpatient with Dr. Jeffery. Also, we will check BMP next week on the . The patient will need an outpatient echocardiogram for diastolic dysfunction, which she wi ll follow up with Cardiology. The patient's daughter has been made aware of this. CONSULTANTS: Nephrology, Cardiology and Pulmonary.
[2017-10-23] MEDS ORDERED: (Cranberry Fruit Extract [Cranberry] 500 MG) PO SCH (09:00)
--- NOTE | 2017-10-29 09:52 | PQF ---
LENARDPABLITOSILVANO MD [id number] [id number] CLINICAL DOCUMENTATION CLARIFICATION FORM: POST DISCHARGE Addendum to original discharge summary date: ____ Late entry note date: __ PABLITO WEINBERG [id number] SHONA CALLAHAN PLEASE DOCUMENT YOUR RESPONSE BELOW PLEASE FAX RESPONSE BACK TO [phone] YOUR INPUT IS NEEDED TO CORRECTLY CODE A DIAGNOSIS FOR YOUR PATIENT. DATE: 10/29/17 ATTN: Dr Shi Please exercise your independent, professional judgment in responding to the clarification form. Clinical indicators are provided on the bottom of this form for your review Please check appropriate box(s) to clarify if the following diagnosis has been ruled in or ruled out: Respiratory Failure (CDI/Coding list diagnosis here) [ ] Ruled in diagnosis [ ] Continue to treat [ ] Resolved [ ] Ruled out diagnosis [ ] Cannot rule out diagnosis [ ] Other diagnosis [ ] Unable to determine In addition, please specify: Present on Admission (POA): [ ] Yes [ ] No [ ] Unable to determine For continuity of documentation, please document condition throughout progress notes and discharge summary. Thank You. CLINICAL INDICATORS - SIGNS / SYMPTOMS / LABS Sats 100% on room air Respirations 18 RISK FACTORS history of intubation with respiratory failure TREATMENTS none (This form is maintained as a part of the permanent medical record) 2014 [employer]. All Rights Reserved Irais [email or web address] [phone] [email or web address]
== END 2017-10-22 19:34 | disposition home health service (06) | DRG 689 ==
LOC: ERS 20:55 → IMCU/EMU 10-20 00:04 → T4-A 10-21 15:06
PROVIDERS: ADMIT Internal Medicine; ATTEND Internal Medicine
DX: N39.0 Urinary tract infection, site not specified (principal); G93.41 Metabolic encephalopathy; N17.9 Acute kidney failure, unspecified; I50.32 Chronic diastolic (congestive) heart failure; I13.11 Hypertensive heart and chronic kidney disease without heart failure, with stage 5 chronic kidney disease, or end stage renal disease; N18.5 Chronic kidney disease, stage 5; E11.22 Type 2 diabetes mellitus with diabetic chronic kidney disease; I25.10 Atherosclerotic heart disease of native coronary artery without angina pectoris; Z95.1 Presence of aortocoronary bypass graft; I25.2 Old myocardial infarction; Z88.8 Allergy status to other drugs, medicaments and biological substances; E78.5 Hyperlipidemia, unspecified; R79.89 Other specified abnormal findings of blood chemistry; E66.01 Morbid (severe) obesity due to excess calories; B96.20 Unspecified Escherichia coli [E. coli] as the cause of diseases classified elsewhere; Z79.01 Long term (current) use of anticoagulants; Z79.4 Long term (current) use of insulin; E11.21 Type 2 diabetes mellitus with diabetic nephropathy; D63.1 Anemia in chronic kidney disease; E11.51 Type 2 diabetes mellitus with diabetic peripheral angiopathy without gangrene; Z86.73 Personal history of transient ischemic attack (TIA), and cerebral infarction without residual deficits; J44.9 Chronic obstructive pulmonary disease, unspecified; Z68.31 Body mass index [BMI] 31.0-31.9, adult
CPT/HCPCS: 36415; 36416; 70450; 71045; 74176; 80048; 80053; 81003; 81015; 82553; 82728; 83540; 83550; 83605; 83690; 83735; 83880; 84443; 84484; 85025; 85610; 85730; 87040; 87077; 87086; 87149; 87186; 93005; 96374; 96375; A4216; A4353; G8978-GP-CL; G8979-GP-CK; J1644; J1815; J1940; J1956; J7050; Q4081

== ENCOUNTER 2017-12-05 14:05 | Inpatient (IN) | payer MEDICARE ==
[2017-12-05 15:02] LABS: Bilirubin Negative (Negative); Blood, Urine Negative (Negative); Clarity CLOUDY (Clear); Glucose, Urine (Dipstick) Negative (Negative); Leukocyte Small (Negative); Nitrite Negative (Negative); Protein, Urine (Dipstick) 100 mg/dL (Neg-Trace); Specific Gravity, Urine 1.019 (1.002-1.036)
[2017-12-05 15:05] LABS: Bacteria/HPF None Seen HPF (None Seen); Hyaline Casts/LPF 7-10 HYALINE CAST LPF (0-3 Hyaline); Pathc Cast-AUWi Flag 2.18 (0-2.49)
--- NOTE | 2017-12-05 15:09 | RAD ---
RADIOGRAPH CHEST 1 VIEW: Date: 12-05-17 Time: 2:38 p.m. HISTORY: 82-year-old female with dyspnea. COMPARISON: 10-19-17 FINDINGS: There is a new moderately large region of increased attenuation at the left lower lung zone, almost c ompletely silhouetting the left hemidiaphragm and completely effacing the left lateral costophrenic a ngle. There is no change in the cardiomegaly. Again noted are the sternotomy wires. Questionable new faint small patchy opacity in the right upper lobe near the lung field. No pneumothorax. Effacement o f the contralateral right lateral costophrenic angle is unchanged. IMPRESSION: 1. New region of opacification in the left lung base, consistent with left lower lobe atelectasis or pneumonia, and probable left pleural effusion. 2. No interval change in the small right pleural effusion. 3. Cardiomegaly. 4. Questionable small right upper lobe infiltrate. 5. follow up recommended. OLE POS: EARL
[2017-12-05 15:12] LABS: Renal Epithelial None Seen HPF (0-3); Transitional Epithelial NONE SEEN HPF (0-3)
[2017-12-05 16:06] LABS: ALT (SGPT) 12 U/L (8-55); AST (SGOT) 26 U/L (5-34); Alkaline Phosphatase 92 U/L (40-150); Anion Gap 15 mmol/L (10-20); BUN (Urea Nitrogen) 71 mg/dL (9.8-20.1); Bilirubin, Total 0.4 mg/dL (0.2-1.2); Calc. Creatinine Clearance 0 mL/min (70-130); Calcium 8.8 mg/dL (7.8-10.44); Carbon Dioxide 14 mmol/L (23-31); Chloride 110 mmol/L (98-107); Estimated GFR-MDRD 11; Globulin 3.9 g/dL (2.4-3.5); Glucose 171 mg/dL (83-110); Potassium 6.1 mmol/L (3.5-5.1); Protein, Total 6.9 g/dL (6.0-8.3); Sodium 133 mmol/L (136-145)
[2017-12-05 16:27] LABS: #Eosinphils 0.3 thou/uL (0.0-0.7); #Lymphocytes 0.5 thou/uL (1.20-3.40); #Monocytes 0.4 thou/uL (0.11-0.59); #Neutrophils 2.6 thou/uL (1.40-6.50); %Basophils 0.9 % (0.0-1.0); %Eosinophils 6.7 % (0.0-10.0); %Lymphocytes 12.6 % (21.0-51.0); %Monocytes 10.8 % (0.0-10.0); Acanthocytes SLIGHT = 1-5 cells (100X) (None Seen); MDiff Complete? YES; Macrocytosis MODERATE=16-30 cells (100X) (0-5/hpf); Mean Corpuscular Hemoglobin 32.8 pg (27.0-31.0); Mean Platelet Volume 9.6 fL (7.4-10.4); PLT Morphology Comment Appears Decreased; Platelet Count 105 thou/uL (130-400); RBC Distribution Width 18.2 % (11.5-14.5); Red Blood Cell (RBC) Count 2.44 mill/uL (4.20-5.40); White Blood Cell (WBC) Count 3.8 thou/uL (4.8-10.8)
[2017-12-05] MEDS ORDERED: Ondansetron HCl/PF 4 MG/2 ML Vial IVP PRN (17:54)
[2017-12-05] MEDS ORDERED: cefTRIAXone\\ROCEPHIN 1 GM in Sodium Chloride 0.9% 100 ML IVPB SCH (18:00)
[2017-12-05] MEDS ORDERED: Sodium Chloride 0.9% 1,000 ML IV SCH (18:30)
[2017-12-05 18:51] LABS: Anion Gap 16 mmol/L (10-20); BUN (Urea Nitrogen) 72 mg/dL (9.8-20.1); Calc. Creatinine Clearance 14 mL/min (70-130); Carbon Dioxide 14 mmol/L (23-31); Chloride 111 mmol/L (98-107); Estimated GFR-MDRD 12; Glucose 158 mg/dL (83-110); Sodium 135 mmol/L (136-145)
[2017-12-05] MEDS: Heparin 5,000 UNITS/ML VIAL SC SCH (20:18)
[2017-12-05] MEDS: Azithromycin 500 MG in Sodium Chloride 0.9% 250 ML 250 ML IVPB SCH (20:19)
[2017-12-05] MEDS: cefTRIAXone\\ROCEPHIN 1 GM, Syringe 0.4 ML in Sterile Water 9.6 ML SLOW IVP SCH (20:20)
[2017-12-06 00:18] LABS: Anion Gap 15 mmol/L (10-20); BUN (Urea Nitrogen) 70 mg/dL (9.8-20.1); Calc. Creatinine Clearance 14 mL/min (70-130); Calcium 8.7 mg/dL (7.8-10.44); Carbon Dioxide 15 mmol/L (23-31); Chloride 110 mmol/L (98-107); Estimated GFR-MDRD 12; Glucose 181 mg/dL (83-110); Potassium 5.7 mmol/L (3.5-5.1); Sodium 134 mmol/L (136-145)
[2017-12-06] MEDS ORDERED: hydrALAZINE 25 MG TAB PO SCH ×2 (05:35→09:00)
[2017-12-06 06:34] LABS: #Eosinphils 0.3 thou/uL (0.0-0.7); #Lymphocytes 0.4 thou/uL (1.20-3.40); #Monocytes 0.5 thou/uL (0.11-0.59); #Neutrophils 3.5 thou/uL (1.40-6.50); %Basophils 0.5 % (0.0-1.0); %Eosinophils 5.5 % (0.0-10.0); %Lymphocytes 9.3 % (21.0-51.0); %Monocytes 10.5 % (0.0-10.0); %Neutrophils 74.3 % (42.0-75.0); Hemoglobin 8.9 g/dL (12.0-16.0); Mean Corpuscular HGB CONC 31.5 g/dL (32.0-36.0); Mean Corpuscular Hemoglobin 33.2 pg (27.0-31.0); Platelet Count 99 thou/uL (130-400); RBC Distribution Width 18.2 % (11.5-14.5); Red Blood Cell (RBC) Count 2.68 mill/uL (4.20-5.40); White Blood Cell (WBC) Count 4.7 thou/uL (4.8-10.8)
[2017-12-06 06:46] LABS: Anion Gap 14 mmol/L (10-20); BUN (Urea Nitrogen) 66 mg/dL (9.8-20.1); Calc. Creatinine Clearance 14 mL/min (70-130); Calcium 8.5 mg/dL (7.8-10.44); Carbon Dioxide 15 mmol/L (23-31); Chloride 110 mmol/L (98-107); Estimated GFR-MDRD 12; Glucose 173 mg/dL (83-110); Potassium 5.3 mmol/L (3.5-5.1); Sodium 134 mmol/L (136-145)
[2017-12-06] MEDS: Famotidine 40 MG/4 ML VIAL SLOW IVP SCH (08:40)
[2017-12-06] MEDS: Amitriptyline HCl 25 MG TAB PO SCH (08:40)
[2017-12-06] MEDS: Heparin 5,000 UNITS/ML VIAL SC SCH ×3 (08:40→20:28)
[2017-12-06] MEDS: Ferrous Sulfate 325 MG TAB PO SCH ×2 (08:40→18:18)
[2017-12-06] MEDS: Carvedilol 6.25 MG TAB PO SCH ×2 (08:40→20:27)
[2017-12-06] MEDS ORDERED: Epoetin (ESRD) 20,000 UNITS/ML SC SCH (12:00)
[2017-12-06 12:19] LABS: Anion Gap 14 mmol/L (10-20); BUN (Urea Nitrogen) 64 mg/dL (9.8-20.1); Calc. Creatinine Clearance 15 mL/min (70-130); Calcium 8.6 mg/dL (7.8-10.44); Carbon Dioxide 16 mmol/L (23-31); Chloride 110 mmol/L (98-107); Estimated GFR-MDRD 12; Glucose 194 mg/dL (83-110); Potassium 5.3 mmol/L (3.5-5.1); Sodium 135 mmol/L (136-145)
[2017-12-06 12:20] VITALS: BMI 35.3
[2017-12-06] MEDS ORDERED: Dextrose 50% Abboject 50 ML SYRINGE IVP PRN (12:21)
[2017-12-06] MEDS ORDERED: Dextrose 5% in Water 1,000 ML IV PRN (12:21)
[2017-12-06] MEDS: HumaLOG 300 UNITS/3 ML VIAL SC PRN ×2 (12:30→18:31)
[2017-12-06] MEDS: Sodium Chloride 0.9% 1,000 ML IV SCH (12:30)
--- NOTE | 2017-12-06 12:58 | HP ---
PRIMARY CARE PHYSICIAN: Perla Rivera D.O. CHIEF COMPLAINT: Altered mental status. HISTORY OF PRESENT ILLNESS: This is an 82-year-old female with a history of chronic kidney disease, coronary artery disease, hypertension, diabetes who presented with hypoxia, fever, cough, and decreased mentation mostly increased somnolence. She was brought in by her daughter. The patient was sent from an outlying emergency department. Upon arrival to our emergency department, she was already found to have both hyperkalemia and a left lower lobe pneumonia. Patient's daughter at bedside states that the patient was in her usual state of health and went to a [facility] in [place] last week - unknown if she had any sick contacts. She was doing well until Friday when she complained of extreme tiredness and since Friday to the point of presentation had been increasingly sleepy and somnolent and difficult to arouse. REVIEW OF SYSTEMS: As per HPI. Note that the review of systems is provided by the patient's daughter who lives with the patient at bedside. During this review of systems, the patient is somnolent. She is arousable, but does not stay awake long enough to answer questions appropriately. Constitutional: No recent significant changes in weight gain or weight loss, patient has not been complaining of any fevers or chills to her daughter. HEENT: Has not been complaining of any headaches, vision changes, dizziness or lightheadedness. Cardiovascular: Has not been complaining of any chest pressure, chest pain, left-sided, arm numbness or tingling. Respiratory: Has not been complaining of any shortness of breath or dyspnea with exertion, mostly fatigue and a cough that has been grossly nonproductive. Gastrointestinal: Has not been complaining of any nausea, vomiting. No issues with diarrhea. She has been having loose stools once to twice a day. Last bowel movement was 2 days before presentation. Patient has been having decreased appetite due to decreased mentation, but has not been complaining of any loss of appetite. Genitourinary : Has not been complaining of any dysuria. The daughter has not noted any significant changes in urinary frequency, quality, odor or quantity. Musculoskeletal: Has not been complaining of any overt myalgias, arthralgias, just generalized fatigue. The remainder of the review of systems is otherwise negative. PAST MEDICAL HISTORY: As per HPI, includes the following, 1. Chronic kidney disease for which she sees Dr. Jeffery. 2. Coronary artery disease, status post PCI x3. 3. Type 2 diabetes. 4. Prior history of CHF. 5. Hypertension. 6. Status post cataract surgery. 7. Status post cholecystectomy. 8. Status post carpal tunnel surgery in 1992. 9. Status post CABG in 2006. HOME MEDICATIONS: Please see the EMR for full details. The patient denies any changes to the regimen. Denies any recent over the counter herbals, vitamins or supplements in the last month. Home regimen includes polyethylene glycol, calcium carbonate, multivitamin, CoQ10, glucosamine, insulin, Procrit. The patient's daughter does note that the patient's Procrit has been recently changed in the last 2 weeks, ferrous sulfate, cranberry, aspirin, fish oil, vitamin B, sodium bicarbonate, carvedilol 6.25 mg p.o. b.i.d., hydralazine 25 mg p.o. b.i.d., clopidogrel 75 mg p.o. daily, isosorbide mononitrate 30 mg p.o. b.i.d., furosemide 40 mg p.o. q.7 days, sertraline 100 mg p.o. daily, amitriptyline 25 mg p.o. daily, pantoprazole 40 mg p.o. daily, gabapentin 300 mg p.o. b.i.d., atorvastatin 20 mg p.o. q.p.m. and hydrocodone/acetaminophen 10/ 325 p.o. p.r.n. ALLERGIES: Include DILTIAZEM, GLIPIZIDE, METFORMIN, METOPROLOL, PRAVASTATIN, PROMETHAZINE. No reactions listed. FAMILY HISTORY: Significant for hypertension and diabetes. SOCIAL HISTORY: The patient lives at home with her daughter at bedside. The patient's daughter states that she would be the medical decision maker for the patient as the patient is unable to make her medical decisions. The patient does not use alcohol, tobacco or illicit drugs. The patient's daughter states that the patient would wish to be a DO NOT RESUSCITATE and DO NOT INTUBATE in the case of a code situation; however, this was an elective intubation associated with procedure or surgery with a reasonable expectation of extubation and the patient would be amenable to intubation in that situation. The patient's daughter has also preemptively said that even if the patient has some issues with deconditioning during this hospitalization, she wishes to go home with home health and home therapies. PHYSICAL EXAMINATION: GENERAL: The patient is somnolent, but arousable, no acute distress, lying in the hospital stretcher. HEENT: Normocephalic, atraumatic. Slightly dry mucous membranes. Equal ocular motions are intact. CARDIOVASCULAR: S1, S2. Pulses 2+ bilateral upper extremities. Trace bilateral pitting pedal edema. RESPIRATORY: Reasonable air movement. No wheezes, rales or rhonchi, otherwise clear to auscultation. ABDOMEN: Positive bowel sounds, soft, nontender to palpation. LABORATORY DATA AND IMAGING: WBC 3.8, hemoglobin 8.0, hematocrit 25.9, platelets 105. Sodium 133, potassium 6.1, chloride 110, BUN 71, creatinine 3.77 , glucose 171. Lactic acid 0.8, calcium 8.8, total bilirubin 0.4, AST 26, ALT 19, alkaline phosphatase 92, total protein 6.9, albumin 3.0. UA significant for 100 protein, small leukoesterase, 4-6 wbc's, 11-20 squamous epithelial cells and 7-10 hyaline casts. On 12/05/2017, chest x-ray, impression, "new region of opacification of the left lung base consistent with left lower lobe atelectasis or pneumonia and probable pleural effusion. No interval change in the small right pleural effusion. Cardiomegaly. Questionable small right upper lobe infiltrate. Followup recommended." ASSESSMENT AND PLAN: An 82-year-old female who presents with decreased mental status, hyperkalemia. 1. Hyperkalemia. The patient has chronic renal disease. We will consult her home glue spreader who is Dr. Jeffery. In addition, the patient has already received Kayexalate x1. We will continue with serial monitoring of her potassium. Maintain the patient on telemetry. 2. Possible pneumonia. This could be a contributory etiology. Empiric antibiotics with azithromycin and ceftriaxone. We will closely monitor the patient's respiratory status. Check an ABG given the patient's decreased mentation. 3. Chronic kidney disease, closely monitor the patient's intake and output. Cautious hydration given the patient's decreased oral intake, UA could be a contaminant, but we will go ahead and repeat with a urine culture, draw blood cultures as well. 4. Leukopenia, likely secondary to infection. Closely monitor. 5. Thrombocytopenia, closely monitor. No overt signs or symptoms of bleeding. DVT prophylaxis with heparin and sequentials. 6. Diet. N.p.o. until the patient has sufficient mentation to tolerate oral intake, then at that point in time would recommend a cardiac diet and renal diet. 7. Activity: Out of bed as tolerated. 8. Admit the patient inpatient to telemetry. Thank you for asking me to care for the patient. Questions or concerns, please contact me at [facility]. RANGEL
[2017-12-06] MEDS ORDERED: Epoetin (ESRD) 10,000 UNITS/ML VIAL SC SCH (13:00)
--- NOTE | 2017-12-06 13:33 | PDOC.PN ---
- Subjective Encounter Start Date: 12/06/17 Encounter Start Time: 13:29 Subjective: nsg notes rev, bridget ovn, pt is awake and conversant, answers questions -: appropriately today, daughter at bedside - Objective Resuscitation Status: Resuscitation Status DNR:Do Not Resuscitate Vital Signs & Weight: Vital Signs (12 hours) Temp Pulse Resp BP BP Pulse Ox 12/06/17 13:18 98.1 F 72 18 139/72 98 12/06/17 07:49 97.6 F 69 18 98 12/06/17 07:47 97.6 F 69 18 189/79 H 98 12/06/17 06:03 63 186/74 H 12/06/17 04:20 98.3 F 63 16 186/74 H 96 12/06/17 02:31 144/67 H Weight Admit Weight 174 lb Weight 174 lb 12.8 oz I&O: 12/05/17 12/06/17 12/07/17 06:59 06:59 06:59 Intake Total 345 Balance 345 Result Diagrams: 12/06/17 05:55 12/06/17 11:53 Additional Labs: Accuchecks 12/06/17 10:42 POC Glucose 198 H Phys Exam - Physical Examination Constitutional: NAD lying in hospital bed HEENT: PERRLA, sclera anicteric, oral pharynx no lesions slightly dry mm Respiratory: no rales, no rhonchi, clear to auscultation bilateral faint wheezing throughout reasonable air mvmt Cardiovascular: RRR, no rub Gastrointestinal: soft, no distention, positive bowel sounds Musculoskeletal: no edema, pulses present Neurological: moves all 4 limbs Psychiatric: normal affect Dx/Plan - Plan * LLL PNA * continue O2, ceftriaxone, azithromycin * add duo nebs for wheezing, if continued wheezing, t/c adding steroids * blood cx pending, ? sputum cx * can hold off on ABG as pt mentation is dramatically improved metabolic encephalopathy * improved * ? related to LLL PNA vs hyperkalemia, likely multifactorial and related to both * continue to closely monitor * d/w patient's dtr will hold on gabapentin, amytriptyline, any meds that can potentially depress mentation until patient's mental status is completely back to baseline hyperkalemia, improved * continue to monitor * continue on tele * apprec nephrology c/s CKD * continue with IVF and close I/O monitoring while Po status is marginal * as PO status improves, t/c d/c IVF * check BMP in AM diet: renal activity: PT, OT, OOB to chair, ICS dvt ppx Review of Systems - Medications/Allergies Allergies/Adverse Reactions: Allergies Allergy/AdvReac Type Severity Reaction Status Date / Time diltiazem Allergy Verified 10/20/17 01:07 glipizide Allergy Verified 10/20/17 01:07 metformin Allergy Verified 10/20/17 01:07 metoprolol Allergy Verified 10/20/17 01:07 pravastatin [From Pravachol] Allergy Verified 10/20/17 01:07 promethazine Allergy Verified 10/20/17 01:07 Medications: Current Medications Acetaminophen (Tylenol) 650 mg PO Q4H PRN PRN Reason: Headache/Fever or Pain Amitriptyline HCl (Elavil) 25 mg PO DAILY [facility] Last Admin: 12/06/17 08:40 Dose: 25 mg Atorvastatin Calcium (Lipitor) 20 mg PO QPM [facility] Carvedilol (Coreg) 6.25 mg PO BID [facility] Last Admin: 12/06/17 08:40 Dose: 6.25 mg Dextrose/Water (Dextrose 50%) 25 gm IVP PRN PRN PRN Reason: HYPOGLYCEMIA PROTOCOL Epoetin Elijah (Procrit) 10,000 units SC Q7D@1300 [facility] Last Admin: 12/06/17 13:30 Dose: 10,000 units Famotidine (Pepcid) 20 mg SLOW IVP DAILY [facility] Last Admin: 12/06/17 08:40 Dose: 20 mg Ferrous Sulfate (Feosol) 325 mg PO BID[facility] Last Admin: 12/06/17 08:40 Dose: 325 mg Glucagon (Glucagon) 1 mg IM PRN PRN PRN Reason: HYPOGLYCEMIA PROTOCOL Heparin Sodium (Porcine) (Heparin) 5,000 units SC TID [facility] Last Admin: 12/06/17 08:40 Dose: 5,000 units Hydralazine HCl (Apresoline) 50 mg PO TID [facility] Azithromycin 500 mg/ Sodium (Chloride) 250 mls @ 250 mls/hr IVPB Q24HR [facility] Last Admin: 12/05/17 20:19 Dose: 250 mls Ceftriaxone Sodium 1 gm/ (Syringe 0.4 ml/ Sterile Water) 10 mls @ 120 mls/hr SLOW IVP Q24HR@1830 [facility] Last Admin: 12/05/17 20:20 Dose: 10 mls Sodium Chloride (Normal Saline 0.9%) 1,000 mls @ 75 mls/hr IV .[id number] [facility] Last Admin: 12/06/17 12:30 Dose: 1,000 mls Dextrose/Water (D5w) 1,000 mls @ 0 mls/hr IV INF PRN; As Directed PRN Reason: HYPOGLYCEMIA PROTOCOL Insulin Human Lispro (Humalog) 0 units SC .MILD SLIDING SCALE PRN; Protocol PRN Reason: MILD SLIDING SCALE Last Admin: 12/06/17 12:30 Dose: 2 unit Isosorbide Mononitrate (Imdur Er) 30 mg PO BID [facility] Last Admin: 12/06/17 08:40 Dose: 30 mg Ondansetron HCl (Zofran) 4 mg IVP Q6H PRN PRN Reason: Nausea/Vomiting
--- NOTE | 2017-12-06 13:40 | PRG ---
DATE OF SERVICE: 12/06/2017 SERVICE: Renal Medicine. SUBJECTIVE: Ms. York is an 82-year-old female with chronic renal failure and being foll owed up by the [facility]. She was admitted for generalized weakness. Initial evaluation suggests that she may have underlying pneumonia. She was complaining of generalized weakness in the last sev eral days. We were called because of the slightly high potassium at 6.1 and with her chronic renal f ailure. I did discuss the case with Dr. Ruy Holm, the ER physician and she was given 1 dose of Dominique xalate. Potassium is actually improved. She has also on exam, some degree of stage I decubitus ulce r. The patient voices no other complaints. She does have some generalized weakness and decreased appeti te. No complaints of chest pain or shortness of breath. PHYSICAL EXAMINATION: VITAL SIGNS: Blood pressure is 189/79 and heart rate 69, temperature is 97.6, O2 sats 98%. GENERAL: Awake, lethargic, but can follow simple commands. HEENT: Pale conjunctivae, anicteric sclerae. NECK: No neck mass, no carotid bruits, no JVD. CHEST: No deformities. LUNGS: Clear breath sounds. No wheezing, no crackles. HEART: Normal sinus rhythm. No murmur, no gallops or rubs. ABDOMEN: Globular, soft, nontender, no masses. BACK: Shows some stage I decubitus ulcers. EXTREMITIES: No edema, no deformities. NEUROLOGIC: Awake, can follow simple commands. Slight tremor. MEDICATIONS: Of 12/06/2017 was reviewed. LABORATORY DATA: Of 12/06/2017 was reviewed. ASSESSMENT AND PLAN: 1. Anemia. We will continue Epogen at 10,000 units subcutaneously every week. This is related to h er underlying renal disease. She has follow up by Hematology as an outpatient. 2. Chronic renal failure, relatively stable renal function. GFR is at baseline. There is no indica tion for any dialytic intervention. Due to her decreased p.o. intake, I would suggest we place her o n maintenance normal saline at 75 mL per hour. 3. Decubitus ulcer. Wound Care being consulted. 4. Pneumonia, currently on empiric IV antibiotics - on ceftriaxone and azithromycin. Overall, agree with current management. 5. Hypertension. Continue current blood pressure medications and adjust as needed.
[2017-12-06] MEDS: hydrALAZINE 25 MG TAB PO SCH ×2 (15:16→20:27)
[2017-12-06] MEDS: cefTRIAXone\\ROCEPHIN 1 GM, Syringe 0.4 ML in Sterile Water 9.6 ML SLOW IVP SCH (18:18)
[2017-12-06 18:57] LABS: Anion Gap 14 mmol/L (10-20); BUN (Urea Nitrogen) 61 mg/dL (9.8-20.1); Calc. Creatinine Clearance 15 mL/min (70-130); Calcium 8.4 mg/dL (7.8-10.44); Carbon Dioxide 17 mmol/L (23-31); Chloride 108 mmol/L (98-107); Estimated GFR-MDRD 12; Glucose 171 mg/dL (83-110); Potassium 5.1 mmol/L (3.5-5.1); Sodium 134 mmol/L (136-145)
[2017-12-06] MEDS: Atorvastatin Calcium 20 MG TAB PO SCH (20:27)
[2017-12-06] MEDS: Azithromycin 500 MG in Sodium Chloride 0.9% 250 ML 250 ML IVPB SCH (20:33)
[2017-12-07] MEDS ORDERED: Furosemide 20 MG/2 ML VIAL SLOW IVP SCH (00:15)
[2017-12-07 00:24] LABS: Anion Gap 12 mmol/L (10-20); BUN (Urea Nitrogen) 61 mg/dL (9.8-20.1); Calc. Creatinine Clearance 16 mL/min (70-130); Calcium 8.1 mg/dL (7.8-10.44); Carbon Dioxide 17 mmol/L (23-31); Chloride 110 mmol/L (98-107); Estimated GFR-MDRD 13; Glucose 127 mg/dL (83-110); Potassium 4.7 mmol/L (3.5-5.1); Sodium 134 mmol/L (136-145)
[2017-12-07] MEDS: hydrALAZINE 20 MG/ML VIAL SLOW IVP PRN (00:27)
[2017-12-07] MEDS ORDERED: Furosemide 40 MG/4 ML VIAL SLOW IVP SCH (02:45)
[2017-12-07] MEDS: Sodium Chloride 0.9% 1,000 ML IV SCH (03:00)
[2017-12-07 06:03] LABS: #Eosinphils 0.2 thou/uL (0.0-0.7); #Lymphocytes 0.5 thou/uL (1.20-3.40); #Monocytes 0.6 thou/uL (0.11-0.59); #Neutrophils 3.2 thou/uL (1.40-6.50); %Basophils 0.8 % (0.0-1.0); %Eosinophils 4.5 % (0.0-10.0); %Lymphocytes 11.4 % (21.0-51.0); %Monocytes 12.6 % (0.0-10.0); %Neutrophils 70.7 % (42.0-75.0); Hemoglobin 8.5 g/dL (12.0-16.0); Mean Corpuscular HGB CONC 31.1 g/dL (32.0-36.0); Mean Corpuscular Hemoglobin 32.7 pg (27.0-31.0); Platelet Count 101 thou/uL (130-400); RBC Distribution Width 18.5 % (11.5-14.5); Red Blood Cell (RBC) Count 2.59 mill/uL (4.20-5.40); White Blood Cell (WBC) Count 4.5 thou/uL (4.8-10.8)
[2017-12-07 06:07] LABS: Anion Gap 13 mmol/L (10-20); BUN (Urea Nitrogen) 61 mg/dL (9.8-20.1); Calc. Creatinine Clearance 16 mL/min (70-130); Calcium 8.2 mg/dL (7.8-10.44); Carbon Dioxide 15 mmol/L (23-31); Chloride 111 mmol/L (98-107); Estimated GFR-MDRD 13; Glucose 115 mg/dL (83-110); Potassium 4.7 mmol/L (3.5-5.1); Sodium 134 mmol/L (136-145)
[2017-12-07] MEDS: Carvedilol 6.25 MG TAB PO SCH ×2 (09:00→20:42)
[2017-12-07] MEDS: Famotidine 40 MG/4 ML VIAL SLOW IVP SCH (09:00)
[2017-12-07] MEDS: Amitriptyline HCl 25 MG TAB PO SCH (09:00)
[2017-12-07] MEDS: Ferrous Sulfate 325 MG TAB PO SCH ×2 (09:00→17:00)
[2017-12-07] MEDS: hydrALAZINE 25 MG TAB PO SCH ×3 (09:00→20:42)
[2017-12-07] MEDS: Heparin 5,000 UNITS/ML VIAL SC SCH ×3 (09:00→20:41)
[2017-12-07 12:17] LABS: Anion Gap 14 mmol/L (10-20); BUN (Urea Nitrogen) 63 mg/dL (9.8-20.1); Calc. Creatinine Clearance 16 mL/min (70-130); Calcium 8.2 mg/dL (7.8-10.44); Carbon Dioxide 16 mmol/L (23-31); Chloride 109 mmol/L (98-107); Estimated GFR-MDRD 13; Glucose 209 mg/dL (83-110); Potassium 4.4 mmol/L (3.5-5.1); Sodium 135 mmol/L (136-145)
--- NOTE | 2017-12-07 13:21 | PDOC.PN ---
- Subjective Encounter Start Date: 12/07/17 Encounter Start Time: 14:27 CC: Dyspnea sub: Pt c/o some dyspnea and wheezing - Objective Resuscitation Status: Resuscitation Status DNR:Do Not Resuscitate Vital Signs & Weight: Vital Signs (12 hours) Temp Pulse Pulse Pulse Resp BP BP 12/07/17 13:10 98.5 F 68 18 199/81 H 12/07/17 11:21 12/07/17 11:13 84 16 12/07/17 10:30 97.6 F 84 16 12/07/17 09:45 73 77 224/85 H 12/07/17 04:20 158/68 H 12/07/17 01:58 72 18 12/07/17 01:30 172/68 H Pulse Ox Pulse Ox Pulse Ox 12/07/17 13:10 96 12/07/17 11:21 94 L 12/07/17 11:13 12/07/17 10:30 12/07/17 09:45 97 96 12/07/17 04:20 12/07/17 01:58 94 L 12/07/17 01:30 Weight Admit Weight 174 lb Weight 185 lb 3.2 oz I&O: 12/06/17 12/07/17 12/08/17 06:59 06:59 06:59 Intake Total 345 120 Balance 345 120 Result Diagrams: 12/07/17 04:40 12/07/17 11:43 Additional Labs: Accuchecks 12/07/17 12/07/17 12/06/17 10:57 05:25 21:05 POC Glucose 192 H 119 H 160 H 12/06/17 16:45 POC Glucose 152 H Dx/Plan - Plan - Physical Examination Constitutional: NAD lying in hospital bed HEENT: PERRLA, sclera anicteric, oral pharynx no lesions slightly dry mm Respiratory: no rales, no rhonchi, clear to auscultation bilateral faint wheezing throughout reasonable air mvmt Cardiovascular: RRR, no rub Gastrointestinal: soft, no distention, positive bowel sounds Musculoskeletal: no edema, pulses present Neurological: moves all 4 limbs Psychiatric: normal affect Dx/Plan - Plan * LLL PNA * continue O2, azithromycin * will add zosyn 2.275gms iv q8hrs. * repeat CXR now metabolic encephalopathy * improved * ? related to LLL PNA vs hyperkalemia, likely multifactorial and related to both * continue to closely monitor * d/w patient's dtr will hold on gabapentin, amytriptyline, any meds that can potentially depress mentation until patient's mental status is completely back to baseline hyperkalemia, improved * continue to monitor * continue on tele * apprec nephrology c/s CKD * continue with IVF and close I/O monitoring while Po status is marginal * as PO status improves, t/c d/c IVF * check BMP in AM diet: renal activity: PT, OT, OOB to chair, ICS dvt ppx d/w p0t & pt daughter
[2017-12-07] MEDS: HumaLOG 300 UNITS/3 ML VIAL SC PRN ×2 (13:23→20:43)
[2017-12-07] MEDS: Piperacillin/Tazobactam 2.25 GM in Sodium Chloride 0.9% 100 ML IVPB SCH ×2 (17:13→23:22)
--- NOTE | 2017-12-07 18:37 | RAD ---
PORTABLE CHEST ONE VIEW: Date: 12-07-17 Time: 3:35 p.m. History: Pneumonia. FINDINGS/IMPRESSION: Comparison is made with exam of 12-05-17. Changes of median sternotomy are again seen. The heart is enlarged. The aorta is tortuous. Pulmonary vascular congestion in the left lung base. Air is redemonstrated. No pneumothoraces are seen. POS: [facility]
[2017-12-07] MEDS: Azithromycin 500 MG in Sodium Chloride 0.9% 250 ML 250 ML IVPB SCH (20:34)
[2017-12-07] MEDS: Atorvastatin Calcium 20 MG TAB PO SCH (20:42)
[2017-12-07] MEDS: Sodium Bicarbonate Tab 325 MG TAB PO SCH (20:42)
[2017-12-08 05:05] LABS: #Eosinphils 0.3 thou/uL (0.0-0.7); #Lymphocytes 0.6 thou/uL (1.20-3.40); #Monocytes 0.6 thou/uL (0.11-0.59); #Neutrophils 3.9 thou/uL (1.40-6.50); %Basophils 0.5 % (0.0-1.0); %Eosinophils 5.1 % (0.0-10.0); %Monocytes 11.3 % (0.0-10.0); %Neutrophils 72.1 % (42.0-75.0); Hemoglobin 8.7 g/dL (12.0-16.0); Mean Corpuscular HGB CONC 31.7 g/dL (32.0-36.0); Mean Corpuscular Hemoglobin 33.2 pg (27.0-31.0); Mean Platelet Volume 8.5 fL (7.4-10.4); Platelet Count 107 thou/uL (130-400); RBC Distribution Width 18.4 % (11.5-14.5); Red Blood Cell (RBC) Count 2.61 mill/uL (4.20-5.40); White Blood Cell (WBC) Count 5.4 thou/uL (4.8-10.8)
[2017-12-08] MEDS: Piperacillin/Tazobactam 2.25 GM in Sodium Chloride 0.9% 100 ML IVPB SCH ×3 (06:15→22:27)
[2017-12-08] MEDS: hydrALAZINE 25 MG TAB PO SCH ×3 (08:33→21:02)
[2017-12-08] MEDS: Carvedilol 6.25 MG TAB PO SCH ×2 (08:34→21:03)
[2017-12-08] MEDS: Ferrous Sulfate 325 MG TAB PO SCH ×2 (08:34→17:36)
[2017-12-08] MEDS: Amitriptyline HCl 25 MG TAB PO SCH (08:34)
[2017-12-08] MEDS: Acetaminophen 325 MG TAB PO PRN (08:38)
[2017-12-08] MEDS: Heparin 5,000 UNITS/ML VIAL SC SCH ×3 (08:41→21:09)
--- NOTE | 2017-12-08 08:47 | PRG ---
DATE OF SERVICE: 12/08/2017 SUBJECTIVE: Ms. York is an 82-year-old female being followed by the Renal Service for h er acute kidney injury. Renal function is now at baseline. She voices no new complaints today. She is actually eating better. Appetite is much improved. The patient denies any chest pain or shortne ss of breath. PHYSICAL EXAMINATION: VITAL SIGNS: Blood pressure 146/64, heart rate 80, respiratory rate 22, temperature 97.3, pulse ox 9 6%. GENERAL: Noted to be awake, comfortable, not in overt distress. SKIN: Adequate turgor. HEENT: Slightly pale conjunctivae, anicteric sclerae. NECK: No neck mass, no carotid bruits, no JVD. CHEST: No deformities. LUNGS: Decreased breath sounds. HEART: Normal sinus rhythm. No murmur, no gallops, no rubs. ABDOMEN: Globular, soft, nontender, no masses. EXTREMITIES: No edema, no deformities. MEDICATIONS: 12/08/2017 - Reviewed. LABORATORY: 12/08/2017 - White count 5.4, hemoglobin 8.7, sodium 135, potassium 4.4, chloride 109, c arbon dioxide 16, BUN 63, creatinine 3.42, glucose 209, calcium 8.2. ASSESSMENT AND PLAN: 1. Chronic anemia. The patient initiated on ferrous sulfate and Epogen. 2. Acute kidney injury/chronic renal failure, stabilizing renal function. Creatinine now is at base line. There is no indication for any dialytic intervention with this patient. Continue current calin gement. Recheck base met and CBC in a.m. If renal function will remain stable, we will be signing off.
--- NOTE | 2017-12-08 10:29 | PDOC.PN ---
- Subjective Encounter Start Date: 12/08/17 Encounter Start Time: 10:15 Subjective: f/u for encephalopathy likely multifactorial and suspected LLL PNA on -: Zosyn and Zithromax. Overall feeling better but weak. - Objective Resuscitation Status: Resuscitation Status DNR:Do Not Resuscitate MAR Reviewed: Yes Vital Signs & Weight: Vital Signs (12 hours) Temp Pulse Resp BP BP Pulse Ox 12/08/17 08:34 146/64 H 12/08/17 08:33 80 12/08/17 08:24 97.3 F L 80 22 H 146/64 H 96 12/08/17 08:00 97.3 F L 80 22 H 96 12/08/17 06:22 67 22 H 97 12/08/17 04:15 98.9 F 73 20 140/62 95 12/08/17 00:00 98.0 F 68 20 168/72 H 92 L Weight Admit Weight 174 lb Weight 185 lb 3.2 oz I&O: 12/07/17 12/08/17 12/09/17 06:59 06:59 06:59 Intake Total 120 1550 Balance 120 1550 Result Diagrams: 12/08/17 04:38 12/07/17 11:43 Additional Labs: Accuchecks 12/08/17 12/07/17 12/07/17 06:04 20:28 17:00 POC Glucose 127 H 172 H 166 H 12/07/17 10:57 POC Glucose 192 H Microbiology 12/05/17 14:41 Urine Straight Catheter Urine Culture - Final NO GROWTH AT 48 HOURS 12/05/17 18:25 Sputum Respiratory Culture - Preliminary 12/05/17 15:39 Venous blood - Right Arm Blood Culture - Preliminary NO GROWTH AT 48 HOURS 12/05/17 15:29 Venous blood - Left Hand Blood Culture - Preliminary NO GROWTH AT 48 HOURS Radiology Reviewed by me: Yes (PCXR - LLL effusion, chronic changes bilat) EKG Reviewed by me: Yes (Tele - SR in 's) Phys Exam - Physical Examination Constitutional: NAD alert, responsive HEENT: PERRLA, moist MMs, sclera anicteric, oral pharynx no lesions Neck: no nodes, no JVD, supple diminished in L lung base Respiratory: no wheezing, no rales, no rhonchi, clear to auscultation bilateral Cardiovascular: RRR, no significant murmur, no rub, gallop Gastrointestinal: soft, non-tender, no distention, positive bowel sounds Musculoskeletal: no edema, pulses present Neurological: non-focal, normal sensation, moves all 4 limbs A x O x 2 Psychiatric: normal affect Skin: no rash, normal turgor, cap refill <2 seconds Dx/Plan (1) Acute metabolic encephalopathy Code(s): G93.41 - METABOLIC ENCEPHALOPATHY Status: Acute Comment: Multifactorial given polypharmacy and metabolic influence, supportive mgmt, improved (2) CKD (chronic kidney disease), stage IV Code(s): N18.4 - CHRONIC KIDNEY DISEASE, STAGE 4 (SEVERE) Status: Chronic Comment: Appears at baseline CKD levels, avoid nephrotoxic meds and contrast exposure (3) Polypharmacy Code(s): Z79.899 - OTHER [facility] (CURRENT) DRUG THERAPY Status: Chronic Comment: Consider streamlining chronic medications (4) LLL pneumonia Code(s): J18.1 - LOBAR PNEUMONIA, UNSPECIFIED ORGANISM Status: Suspected Comment: Effusion noted on PCXR, continue current abx another 24h then convert to po single agent (5) Anemia in CKD (chronic kidney disease) Code(s): N18.9 - CHRONIC KIDNEY DISEASE, UNSPECIFIED; D63.1 - ANEMIA IN CHRONIC KIDNEY DISEASE Status: Chronic Comment: Epo subq injections weekly and FeSO4 - Plan plan discussed w/ family, continue antibiotics, PT/OT, director social welfare, DVT proph w/SCDs Stable overall -: Continue Zosyn and Zithromax another 24h then de-escalate to single agent -: Limit psychotropic exposure given encephalopathy -: Continue Sodiume bicarbonate 650mg BID -: OOB/ambulate with PT * CM to assist with HH including PT * AM lab: BMP, CBC * Likely home in am
[2017-12-08] MEDS: Famotidine 40 MG/4 ML VIAL SLOW IVP SCH (10:58)
[2017-12-08] MEDS: Sodium Bicarbonate Tab 325 MG TAB PO SCH ×2 (11:06→21:08)
[2017-12-08] MEDS ORDERED: Sodium Chloride 0.9% 10 ML ONE (20:23)
[2017-12-08] MEDS: Azithromycin 500 MG in Sodium Chloride 0.9% 250 ML 250 ML IVPB SCH (21:00)
[2017-12-08] MEDS: Atorvastatin Calcium 20 MG TAB PO SCH (21:02)
--- NOTE | 2017-12-09 03:17 | PRG ---
DATE OF SERVICE: 12/07/2017 SUBJECTIVE: Ms. York is an 82-year-old female with chronic renal failure, who was seen by the Renal Service due to the mild hyperkalemia and chronic renal failure. She was admitt ed due to generalized weakness. Initial evaluations suggests she may have underlying pneumonia. We have started this patient also on a gentle volume repletion of normal saline. This morning, she is feeling better. She is moving about. OBJECTIVE: VITAL SIGNS: Blood pressure is 158/68, heart rate 72, respiratory rate 18, and pulse ox 94%. GENERAL: Awake, alert, comfortable, not in overt distress. SKIN: Adequate turgor. HEENT: Slightly pale conjunctivae. Anicteric sclerae. NECK: No neck mass. No carotid bruits. No JVD. CHEST: No deformities. LUNGS: Decreased breath sounds. HEART: Normal sinus rhythm. No murmurs, no gallops, no rubs. ABDOMEN: Globular, soft, nontender, no masses. EXTREMITIES: No edema. MEDICATIONS: On 12/07/2017 - reviewed. LABORATORY DATA: On 12/07/2017 - white count 4.5, hemoglobin 8.5, and hematocrit 27.2. Sodium 134, potassium 4.7, chloride 111, carbon dioxide 15, BUN 61, creatinine 3.39. GFR 13 mL/minut es. Calcium 8.2. ASSESSMENT AND PLAN 1. Chronic renal failure, stable renal function. Creatinine 3.39 is near baseline. She is currentl y has stage 5 chronic renal failure. There is no indication for any dialytic intervention. 2. Metabolic acidosis. I would suggest start her on sodium bicarbonate 650 mg 1 tablet b.i.d. 3. Pneumonia, currently on IV antibiotics. 4. Anemia - on weekly Epogen. Due to the stable renal function, we will be signing off. Please recall if needed.
[2017-12-09 05:39] LABS: #Eosinphils 0.3 thou/uL (0.0-0.7); #Lymphocytes 0.6 thou/uL (1.20-3.40); #Monocytes 0.4 thou/uL (0.11-0.59); #Neutrophils 3.4 thou/uL (1.40-6.50); %Basophils 0.2 % (0.0-1.0); %Eosinophils 5.6 % (0.0-10.0); %Lymphocytes 12.6 % (21.0-51.0); %Monocytes 8.9 % (0.0-10.0); %Neutrophils 72.8 % (42.0-75.0); Hemoglobin 8.2 g/dL (12.0-16.0); Mean Corpuscular HGB CONC 30.7 g/dL (32.0-36.0); Mean Corpuscular Hemoglobin 32.5 pg (27.0-31.0); Mean Platelet Volume 8.6 fL (7.4-10.4); Platelet Count 114 thou/uL (130-400); RBC Distribution Width 18.3 % (11.5-14.5); Red Blood Cell (RBC) Count 2.51 mill/uL (4.20-5.40); White Blood Cell (WBC) Count 4.7 thou/uL (4.8-10.8)
[2017-12-09 06:06] LABS: Anion Gap 14 mmol/L (10-20); BUN (Urea Nitrogen) 60 mg/dL (9.8-20.1); Calc. Creatinine Clearance 15 mL/min (70-130); Carbon Dioxide 16 mmol/L (23-31); Chloride 109 mmol/L (98-107); Estimated GFR-MDRD 13; Glucose 159 mg/dL (83-110); Potassium 4.1 mmol/L (3.5-5.1); Sodium 135 mmol/L (136-145)
[2017-12-09] MEDS: Piperacillin/Tazobactam 2.25 GM in Sodium Chloride 0.9% 100 ML IVPB SCH ×3 (06:34→22:23)
[2017-12-09] MEDS: Famotidine 20 MG TAB PO SCH (08:07)
[2017-12-09] MEDS: Ferrous Sulfate 325 MG TAB PO SCH ×2 (08:07→16:46)
[2017-12-09] MEDS: Amitriptyline HCl 25 MG TAB PO SCH (08:08)
[2017-12-09] MEDS: Carvedilol 6.25 MG TAB PO SCH ×2 (08:08→21:03)
[2017-12-09] MEDS: Heparin 5,000 UNITS/ML VIAL SC SCH ×3 (08:08→21:05)
[2017-12-09] MEDS: hydrALAZINE 25 MG TAB PO SCH ×3 (08:08→21:04)
[2017-12-09] MEDS: Acetaminophen 325 MG TAB PO PRN (12:09)
[2017-12-09] MEDS: Sodium Bicarbonate Tab 325 MG TAB PO SCH ×2 (14:17→21:04)
--- NOTE | 2017-12-09 18:36 | PDOC.PN ---
- Subjective Encounter Start Date: 12/09/17 Encounter Start Time: 18:30 Subjective: f/u for encephalopathy likely multifactorial including metabolic and -: infectious process with PNA. Currently on Zosyn and Zithromax. Remains -: weak and needing assistance with all ADL's. - Objective Resuscitation Status: Resuscitation Status DNR:Do Not Resuscitate MAR Reviewed: Yes Vital Signs & Weight: Vital Signs (12 hours) Temp Pulse Resp BP Pulse Ox 12/09/17 17:06 76 16 12/09/17 16:51 98.1 F 76 18 144/65 H 98 12/09/17 12:17 100 12/09/17 12:13 80 12 12/09/17 12:10 98.7 F 84 22 H 164/71 H 98 12/09/17 08:30 98.4 F 78 18 12/09/17 08:24 98.4 F 78 18 174/74 H 98 Weight Admit Weight 174 lb Weight 173 lb 6.4 oz I&O: 12/08/17 12/09/17 12/10/17 06:59 06:59 06:59 Intake Total 1550 590 894 Balance 1550 590 894 Result Diagrams: 12/09/17 05:13 12/09/17 05:13 Additional Labs: Accuchecks 12/09/17 12/09/17 12/09/17 16:05 11:52 06:47 POC Glucose 180 H 200 H 183 H 12/08/17 12/08/17 20:53 16:47 POC Glucose 190 H 182 H Microbiology 12/05/17 14:41 Urine Straight Catheter Urine Culture - Final NO GROWTH AT 48 HOURS 12/05/17 18:25 Sputum Respiratory Culture - Preliminary 12/05/17 15:39 Venous blood - Right Arm Blood Culture - Preliminary NO GROWTH AT 48 HOURS 12/05/17 15:29 Venous blood - Left Hand Blood Culture - Preliminary NO GROWTH AT 48 HOURS EKG Reviewed by me: Yes (Tele - SR in 70's) Phys Exam - Physical Examination alert, nods to questions, states 1-2 word responses HEENT: PERRLA, moist MMs, sclera anicteric, oral pharynx no lesions Neck: no nodes, no JVD, supple exp wheezing bilaterally Respiratory: no rales, no rhonchi S1, S2 Cardiovascular: RRR, no significant murmur, no rub, gallop Gastrointestinal: soft, non-tender, no distention, positive bowel sounds Musculoskeletal: no edema, pulses present Neurological: normal sensation, moves all 4 limbs flat affect Skin: no rash, normal turgor, cap refill <2 seconds Dx/Plan (1) Acute metabolic encephalopathy Code(s): G93.41 - METABOLIC ENCEPHALOPATHY Status: Acute Comment: Multifactorial given polypharmacy and metabolic influence, supportive mgmt, slow clinical improvement (2) CKD (chronic kidney disease), stage IV Code(s): N18.4 - CHRONIC KIDNEY DISEASE, STAGE 4 (SEVERE) Status: Chronic Comment: Appears at baseline CKD levels, avoid nephrotoxic meds and contrast exposure (3) Polypharmacy Code(s): Z79.899 - 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 Status: Chronic Comment: Consider streamlining chronic medications (4) LLL pneumonia Code(s): J18.1 - LOBAR PNEUMONIA, UNSPECIFIED ORGANISM Status: Suspected Comment: Effusion noted on PCXR, continue current abx another 24h then convert to po single agent, likely Levaquin (5) Anemia in CKD (chronic kidney disease) Code(s): N18.9 - CHRONIC KIDNEY DISEASE, UNSPECIFIED; D63.1 - ANEMIA IN CHRONIC KIDNEY DISEASE Status: Chronic Comment: Epo subq injections weekly and FeSO4 - Plan plan discussed w/ family, continue antibiotics, PT/OT, medical social worker, speech therapy, respiratory therapy, DVT proph w/SCDs Stable overall -: Continue pulmonary supportive measures -: Wean O2 as clinically tolerated -: Continue Zosyn and Zithromax -: PT for mobilization * AM lab: CBC * Likely home in 24-48h with HH/PT
[2017-12-09] MEDS: Azithromycin 500 MG in Sodium Chloride 0.9% 250 ML 250 ML IVPB SCH (20:51)
[2017-12-09] MEDS: Atorvastatin Calcium 20 MG TAB PO SCH (21:03)
[2017-12-10 05:21] LABS: #Eosinphils 0.2 thou/uL (0.0-0.7); #Lymphocytes 0.6 thou/uL (1.20-3.40); #Monocytes 0.5 thou/uL (0.11-0.59); #Neutrophils 3.7 thou/uL (1.40-6.50); %Basophils 0.1 % (0.0-1.0); %Eosinophils 4.3 % (0.0-10.0); %Lymphocytes 11.3 % (21.0-51.0); %Neutrophils 75.2 % (42.0-75.0); Hemoglobin 8.2 g/dL (12.0-16.0); Mean Corpuscular HGB CONC 30.8 g/dL (32.0-36.0); Mean Corpuscular Hemoglobin 32.5 pg (27.0-31.0); Mean Platelet Volume 8.2 fL (7.4-10.4); Platelet Count 115 thou/uL (130-400); RBC Distribution Width 18.4 % (11.5-14.5); Red Blood Cell (RBC) Count 2.54 mill/uL (4.20-5.40); White Blood Cell (WBC) Count 4.9 thou/uL (4.8-10.8)
[2017-12-10] MEDS: Piperacillin/Tazobactam 2.25 GM in Sodium Chloride 0.9% 100 ML IVPB SCH ×2 (05:48→16:02)
[2017-12-10] MEDS: Amitriptyline HCl 25 MG TAB PO SCH (08:27)
[2017-12-10] MEDS: Ferrous Sulfate 325 MG TAB PO SCH ×2 (08:27→16:02)
[2017-12-10] MEDS: Sodium Bicarbonate Tab 325 MG TAB PO SCH ×2 (08:27→21:38)
[2017-12-10] MEDS: hydrALAZINE 25 MG TAB PO SCH ×3 (08:27→21:39)
[2017-12-10] MEDS: Famotidine 20 MG TAB PO SCH (08:27)
[2017-12-10] MEDS: Heparin 5,000 UNITS/ML VIAL SC SCH ×3 (08:28→21:39)
[2017-12-10] MEDS: Carvedilol 6.25 MG TAB PO SCH ×2 (08:28→21:39)
[2017-12-10] MEDS ORDERED: Furosemide 20 MG/2 ML VIAL SLOW IVP SCH (11:15)
[2017-12-10] MEDS: HumaLOG 300 UNITS/3 ML VIAL SC PRN ×2 (12:44→18:35)
--- NOTE | 2017-12-10 18:00 | PDOC.PN ---
- Subjective Encounter Start Date: 12/10/17 Encounter Start Time: 17:20 Subjective: f/u for dyspnea, PNA and encephalopathy likely multifactorial. Overall -: improving but some wheezing. [employer] evaluated for dysphagia with recs for -: MBS and modified texture diet. - Objective Resuscitation Status: Resuscitation Status DNR:Do Not Resuscitate MAR Reviewed: Yes Vital Signs & Weight: Vital Signs (12 hours) Temp Pulse Resp BP Pulse Ox 12/10/17 16:05 97.8 F 75 20 139/78 97 12/10/17 12:55 76 18 165/72 H 97 12/10/17 09:11 79 16 98 12/10/17 08:25 97.9 F 79 16 174/72 H 98 Weight Admit Weight 174 lb Weight 174 lb 4.8 oz I&O: 12/09/17 12/10/17 12/11/17 06:59 06:59 06:59 Intake Total 590 1494 Balance 590 1494 Result Diagrams: 12/10/17 04:56 12/09/17 05:13 Additional Labs: Accuchecks 12/10/17 12/10/17 12/10/17 16:11 10:58 05:50 POC Glucose 173 H 221 H 162 H 12/09/17 12/09/17 12/09/17 20:45 16:05 06:47 POC Glucose 158 H 180 H 183 H 12/08/17 20:53 POC Glucose 190 H Microbiology 12/05/17 14:41 Urine Straight Catheter Urine Culture - Final NO GROWTH AT 48 HOURS 12/05/17 18:25 Sputum Respiratory Culture - Preliminary 12/05/17 15:39 Venous blood - Right Arm Blood Culture - Preliminary NO GROWTH AT 48 HOURS 12/05/17 15:29 Venous blood - Left Hand Blood Culture - Preliminary NO GROWTH AT 48 HOURS EKG Reviewed by me: Yes (Tele - SR in 80's) Phys Exam - Physical Examination Constitutional: NAD smiles, responds to questions HEENT: PERRLA, moist MMs, sclera anicteric, oral pharynx no lesions Neck: no nodes, no JVD, supple diminished in bases bilat, exp wheeze bilat Respiratory: no rhonchi S1, S2 Cardiovascular: RRR, no significant murmur, no rub, gallop Gastrointestinal: soft, non-tender, no distention, positive bowel sounds Musculoskeletal: no edema, pulses present Neurological: non-focal, normal sensation, moves all 4 limbs Psychiatric: normal affect, A&O x 3 Skin: no rash, normal turgor, cap refill <2 seconds Dx/Plan (1) Acute metabolic encephalopathy Code(s): G93.41 - METABOLIC ENCEPHALOPATHY Status: Acute Comment: Multifactorial given polypharmacy and metabolic influence, supportive mgmt, slow clinical improvement (2) CKD (chronic kidney disease), stage IV Code(s): N18.4 - CHRONIC KIDNEY DISEASE, STAGE 4 (SEVERE) Status: Chronic Comment: Appears at baseline CKD levels, avoid nephrotoxic meds and contrast exposure (3) Polypharmacy Code(s): Z79.899 - OTHER [facility] (CURRENT) DRUG THERAPY Status: Chronic Comment: Consider streamlining chronic medications (4) LLL pneumonia Code(s): J18.1 - LOBAR PNEUMONIA, UNSPECIFIED ORGANISM Status: Suspected Comment: Effusion noted on PCXR, d/c Zosyn and Zithromax, start Omnicef 300mg daily (5) Anemia in CKD (chronic kidney disease) Code(s): N18.9 - CHRONIC KIDNEY DISEASE, UNSPECIFIED; D63.1 - ANEMIA IN CHRONIC KIDNEY DISEASE Status: Chronic Comment: Epo subq injections weekly and FeSO4 (6) Dysphagia Code(s): R13.10 - DYSPHAGIA, UNSPECIFIED Status: Chronic Qualifiers: Dysphagia type: oropharyngeal phase Qualified Code(s): R13.12 - Dysphagia, oropharyngeal phase Comment: MBS planned in am, modified texture diet - Plan plan discussed w/ family, continue antibiotics, PT/OT, public health social worker, speech therapy, respiratory therapy, out of bed/ambulate, DVT proph w/SCDs Stable overall -: Trial Lasix 20mg IV daily x 2 days -: D/C Zosyn -: D/C Zithromax -: Start Omnicef 300mg daily * Modified Barium Swallow evaluation in am * AM lab: [facility]
[2017-12-10] MEDS: Acetaminophen 325 MG TAB PO PRN (18:36)
[2017-12-10] MEDS: Atorvastatin Calcium 20 MG TAB PO SCH (21:39)
[2017-12-11] MEDS: hydrALAZINE 20 MG/ML VIAL SLOW IVP PRN (05:40)
[2017-12-11 06:12] LABS: Anion Gap 13 mmol/L (10-20); BUN (Urea Nitrogen) 57 mg/dL (9.8-20.1); Calc. Creatinine Clearance 16 mL/min (70-130); Calcium 8.3 mg/dL (7.8-10.44); Carbon Dioxide 19 mmol/L (23-31); Chloride 110 mmol/L (98-107); Estimated GFR-MDRD 13; Glucose 174 mg/dL (83-110); Potassium 4.2 mmol/L (3.5-5.1); Sodium 138 mmol/L (136-145)
[2017-12-11] MEDS ORDERED: Cefdinir 300 MG CAP PO SCH (09:00)
[2017-12-11] MEDS ORDERED: Furosemide 20 MG/2 ML VIAL SLOW IVP SCH (09:00)
[2017-12-11] MEDS: hydrALAZINE 25 MG TAB PO SCH ×2 (09:47→14:49)
[2017-12-11] MEDS: Sodium Bicarbonate Tab 325 MG TAB PO SCH (09:47)
[2017-12-11] MEDS: Amitriptyline HCl 25 MG TAB PO SCH (09:48)
[2017-12-11] MEDS: Heparin 5,000 UNITS/ML VIAL SC SCH ×2 (09:48→14:49)
[2017-12-11] MEDS: Famotidine 20 MG TAB PO SCH (09:48)
[2017-12-11] MEDS: Ferrous Sulfate 325 MG TAB PO SCH ×2 (09:48→17:27)
[2017-12-11] MEDS: Carvedilol 6.25 MG TAB PO SCH (09:48)
[2017-12-11] MEDS: HumaLOG 300 UNITS/3 ML VIAL SC PRN (12:16)
--- NOTE | 2017-12-11 12:41 | RAD ---
MODIFIED BARIUM SWALLOW: HISTORY: Dysphagia. Feeding difficulties. FLUOROSCOPY TIME: 0.8 minutes. FINDINGS: The exam was performed in conjunction with speech pathology with multiple consistencies. Video revie w is available and demonstrates good bolus formation and retropulsion. With thin liquids, there was intermittent mild to moderate penetration. No ivone aspiration. There was intermittent cooling with in the valleculae with good clearing upon secondary swallowing. The esophagus, below the level of the hypopharynx, was not evaluated. Please see separate detailed r eport from speech pathology. POS: [facility]
[2017-12-11 13:43] VITALS: TEMP 97.9
--- NOTE | 2017-12-11 16:30 | DIS ---
DATE OF ADMISSION: 12/05/2017 DATE OF DISCHARGE: 12/11/2017 DISCHARGE DIAGNOSES: 1. Acute metabolic encephalopathy, multifactorial including polypharmacy. 2. Chronic kidney disease stage 4, stable. 3. Polypharmacy. 4. Left lower lobe pneumonia, suspected gram positive cocci, stable. 5. Anemia and chronic kidney disease. 6. Diabetes mellitus type 2, stable. 7. Coronary artery disease, chronic and stable. 8. Deconditioning. CONSULTATIONS: Dr. Jeffery with Nephrology Service. PERTINENT LABORATORY AND X-RAY FINDINGS: Creatinine ranged between 3.35-3.77. Estimated GFR ranged between 11-13. Potassium ranged between 4.1-6.1. CBC showed a white blood cell count ranging betwee n 3.8-5.4, hemoglobin ranged between 8.0-8.9. Urine culture dated 12/05/2017 showed no growth at 48 hours. Blood culture x2 from 12/05/2017 showed no growth at 5 days. Sputum culture dated 12/05/2017 showed normal respiratory sunny. Portable chest x-ray dated 12/05/2017 showed opacification in the left lung base concerning for atelectasis/pneumonia. Portable chest x-ray dated 12/07/2017 showed pu lmonary vascular prominence in the left lung base. Modified barium swallow study dated 12/11/2017 sh owed no evidence of ivone aspiration. Mild penetration with thin liquids. HOSPITAL COURSE: The patient was admitted to the telemetry unit after initially presenting with alte red mental status in the context of multiple comorbid status including hypertension, diabetes, boles ry artery disease and chronic kidney disease. The patient was also noted with polypharmacy. Initial ly, the patient was managed for mild hyperkalemia with Kayexalate and maintenance IV fluids in the co ntext of known stage 4 chronic kidney disease. The patient was also initiated on empiric antibiotic therapy with Rocephin and Zithromax after concern for left lower lobe pneumonia with associated effus ion and atelectasis. The patient was given oxygen supplementation and bronchodilator therapy with ov erall improvement in respiratory status and mentation. The patient was slow to clinically improve wi supportive measures with limiting exposure to multiple medications taken as an outpatient. The pa tient continued on antibiotic therapy for suspected pneumonia, transitioning from Rocephin to Zosyn a nd Zithromax. Blood and urine cultures were unrevealing and sputum culture showed normal sunny. The patient did improve after approximately 72 hours into the admission, returning to baseline mental st atus functioning according to family members. The patient was evaluated by physical therapy and deem ed an appropriate candidate for ongoing physical therapy and conditioning after discharge. The patie nt was also evaluated for potential aspiration after concern for mild dysphagia during observation wi th oral intake. The patient underwent a modified barium swallow study showing no ivone penetration a nd only mild aspiration of thin liquids. Current recommendations are for regular oral intake with sa fe swallowing techniques demonstrated. Overall, the patient is clinically stable and at baseline fun ctional status. I have examined the patient at the time of discharge. Discussed all pertinent radio graphic and laboratory workup as well as plans for discharge planning. Family verbalizes understandi ng and agreement for discharge on 12/11/2017. DISCHARGE MEDICATIONS: 1. Omnicef 300 mg 1 tab p.o. daily x5 days. 2. Amitriptyline 25 mg p.o. daily. 3. Enteric-coated aspirin 81 mg 1 tab p.o. daily. 4. Lipitor 20 mg p.o. at bedtime. 5. Calcium carbonate 600 mg p.o. b.i.d. 6. Carvedilol 6.25 mg p.o. b.i.d. 7. Plavix 75 mg 1 tab p.o. daily. 8. Cranberry fruit extract 500 mg p.o. daily. 9. Procrit 10,000 units subcutaneously q. 7 days. 10. Ferrous sulfate 325 mg p.o. b.i.d. 11. Holland 3 fatty acids 2000 mg p.o. b.i.d. 12. Lasix 40 mg p.o. q.7 days. 13. Gabapentin 300 mg p.o. b.i.d. 14. Glucosamine 2 capsules p.o. daily. 15. Hydralazine 25 mg p.o. b.i.d. 16. NovoLog 3 units subcutaneously b.i.d. 17. Isosorbide mononitrate 30 mg p.o. b.i.d. 18. Multivitamin 1 tab p.o. daily. 19. Protonix 40 mg p.o. daily. 20. Sertraline 100 mg p.o. daily. 21. Sodium bicarbonate 325 mg half a tab p.o. b.i.d. 22. Coenzyme Q10 200 mg p.o. at bedtime. 23. Vitamin B complex 1 tablet p.o. b.i.d. FOLLOWUP: The patient to follow up with her primary care provider, Dr. Deena Ward within 7 days of discharge. The patient will follow up with Dr. Sean Jeffery with Nephrology Service and to call his office for appointment time and date. CONDITION ON DISCHARGE: Fair. ACTIVITY: Ad ruy, rolling walker with standby/contact guard assistance and fall risk precautions. DIET: ADA and heart healthy. CODE STATUS: Do not resuscitate. SPECIAL INSTRUCTIONS: The patient will be set up [facility], including physical t herapy on discharge. DISPOSITION: Home with home health services including physical therapy, 12/11/2017. Total time preparing and coordinating discharge, 36 minutes.
[2017-12-11 17:26] VITALS: BP 179/79
[2017-12-13] MEDS ORDERED: Epoetin (ESRD) 10,000 UNITS/ML VIAL SC SCH (12:00)
--- NOTE | 2017-12-17 07:06 | PQF ---
PABLITO WEINBERGHAILY DO [id number] CLINICAL DOCUMENTATION CLARIFICATION FORM: POST DISCHARGE Addendum to original discharge summary date: 12/11/2017 DATE: 12/17/2017 ATTN: Dr. Gutierrez Please exercise your independent, professional judgment in responding to the clarification form. Clinical indicators are provided on the bottom of this form for your review Diagnosis: Acute Kidney Injury _ Present on Admission (POA): [ ] Yes [ ] No [ x ] Unable to determine Coding guidelines require hospitals to identify whether a diagnosis was present on admission (POA) or not. To accurately assign the appropriate POA indicator, this information must be clearly documented within the medical record. CLINICAL INDICATORS - SIGNS / SYMPTOMS / LABS Creatinine 3.77, 3.68 and 3.72 on 12/05. 3.67 3.58 and 3.38 on 12/06. 3.39 and 3.42 on 12/07. 3.45 on 12/09. 3.35 on 12/11. BUN 71, 72 and 70 on 12/05. 66. 64 and 61 on 12/06. 61 and 63 on 12/07. 60 on 12/09. 57 on 12/11. Per 12/08 renal progress note: Being followed by renal service for her acute kidney injury. Renal function is now at baseline. RISK FACTORS: (per H&P/progress notes) Stage IV CKD. Hyperkalemia. Decreased oral intake. TREATMENT: Per H&P: Closely monitor the patient's intake and output. Per H&P: Cautious hydration given the patient's decreased oral intake. Per 12/06 renal progress note: Due to her decreased p.o. intake, I would suggest we place her on maintenance normal saline at 75 mL per hour. (This form is maintained as a part of the permanent medical record) 2014 [employer]. All Rights Reserved Carmenza [email or web address] [phone] MTDD
--- NOTE | 2017-12-17 07:19 | PQF ---
PABLITO WEINBERGHAILY DO [id number] CLINICAL DOCUMENTATION CLARIFICATION FORM: POST DISCHARGE Addendum to original discharge summary date: 12/11/2017 DATE: 12/17/2017 ATTN: Dr. Gutierrez Please exercise your independent, professional judgment in responding to the clarification form. Clinical indicators are provided on the bottom of this form for your review Please clarify the significance and any corresponding diagnosis regarding O2 saturation of 84% upon presentation to ED Please check appropriate box(s): [ x ] O2 saturation of 84% on presentation due to __LLL Pneumonia [ ] Other diagnosis (please specify) [ ] Unable to determine In addition, please specify: Present on Admission (POA): [ x ] Yes [ ] No [ ] Unable to determine For continuity of documentation, please document condition throughout progress notes and discharge summary. Thank You. CLINICAL INDICATORS - SIGNS / SYMPTOMS / LABS Per ED: Patient presented to ED with O2 sat of 84% requiring 2L supplemental O2 to increase sat rate. Hypoxia. Pt remained on 1-2 L supplemental O2 until the morning of her discharge day with sats dropping as low as 92% (12/08). RISK FACTORS Left lower lobe pneumonia. TREATMENTS: Supplemental O2. (This form is maintained as a part of the permanent medical record) 2014 [employer] All Rights Reserved Carmenza [email or web address] [phone] MTDValeria
== END 2017-12-11 17:18 | disposition home health service (06) | DRG 193 ==
LOC: ERS 14:05 → 2NO 17:49
PROVIDERS: ADMIT Internal Medicine; ATTEND Internal Medicine
DX: J18.9 Pneumonia, unspecified organism (principal); G92 Toxic encephalopathy; E87.2 Acidosis; I13.0 Hypertensive heart and chronic kidney disease with heart failure and stage 1 through stage 4 chronic kidney disease, or unspecified chronic kidney disease; N17.9 Acute kidney failure, unspecified; N18.4 Chronic kidney disease, stage 4 (severe); E87.5 Hyperkalemia; I25.10 Atherosclerotic heart disease of native coronary artery without angina pectoris; I50.9 Heart failure, unspecified; E11.22 Type 2 diabetes mellitus with diabetic chronic kidney disease; D69.6 Thrombocytopenia, unspecified; D63.1 Anemia in chronic kidney disease; R13.12 Dysphagia, oropharyngeal phase; L89.101 Pressure ulcer of unspecified part of back, stage 1; R09.02 Hypoxemia; Z66 Do not resuscitate; Z88.8 Allergy status to other drugs, medicaments and biological substances; Z95.1 Presence of aortocoronary bypass graft; Z79.02 Long term (current) use of antithrombotics/antiplatelets; Z79.82 Long term (current) use of aspirin; Z79.4 Long term (current) use of insulin; Z79.899 Other long term (current) drug therapy; Z95.5 Presence of coronary angioplasty implant and graft
CPT/HCPCS: 36415; 36416; 51701; 71045; 74230; 80048; 80053; 81003; 81015; 83605; 85025; 87040; 87070; 87086; 87205; 93005; 94640; 94760; A4216; A4353; G8978-GP-CL; G8979-GP-CJ; G8996-GN-CK; G8996-GN-CL; G8997-GN-CJ; G8997-GN-CK; J0360; J0456; J0696; J1644; J1940; J2543; J7050; J7620; Q4081

== ENCOUNTER 2017-12-17 20:49 | Emergency (ER) | payer MEDICARE ==
--- NOTE | 2017-12-17 22:29 | CT ---
CT OF CERVICAL SPINE PERFORMED WITHOUT CONTRAST ENHANCEMENT: 12/17/17 HISTORY: Fall with neck injury. The bones appears demineralized. Vertebral bodies are normal in height. Osteophytic changes are seen without significant disc narrowing. Facets are in normal alignment. There is no evidence of canal or foraminal stenosis. Carotid bulb calcifications are incidentally noted. The lung apices are clear. IMPRESSION: No CT evidence of fracture of the cervical spine. POS: [facility]
--- NOTE | 2017-12-17 22:31 | CT ---
CT OF BRAIN PERFORMED WITHOUT CONTRAST ENHANCEMENT: 12/17/17 HISTORY: Fall with head injury. Patient is on blood thinners. Marked generalized ventricular and sulcal prominence. There is no signs of intracerebral hemorrhage o r extra-axial fluid collections. Left sided scalp hematoma is noted. No underlying fracture. Mastoid air cells are clear. There is mucosal disease in the maxillary sinuses. IMPRESSION: No acute intracranial abnormalities. POS: [facility]
== END 2017-12-17 22:15 | disposition home or self-care (01) ==
LOC: ERS 20:49
DX: S00.03XA Contusion of scalp, initial encounter (principal); W18.30XA Fall on same level, unspecified, initial encounter; E11.9 Type 2 diabetes mellitus without complications; I25.10 Atherosclerotic heart disease of native coronary artery without angina pectoris; I10 Essential (primary) hypertension; F41.9 Anxiety disorder, unspecified; F32.9 Major depressive disorder, single episode, unspecified; Z79.4 Long term (current) use of insulin; Z79.899 Other long term (current) drug therapy; Z79.82 Long term (current) use of aspirin
CPT/HCPCS: 70450; 72125

== ENCOUNTER 2017-12-22 09:35 | Inpatient (IN) | payer MEDICARE ==
[2017-12-22] MEDS ORDERED: Atropine Sulfate 1 mg/10 ml Syringe ONE (10:23)
[2017-12-22 10:46] LABS: Bilirubin Negative (Negative); Blood, Urine Negative (Negative); Clarity TURBID (Clear); Glucose, Urine (Dipstick) Negative (Negative); Leukocyte Large (Negative); Nitrite Negative (Negative); Protein, Urine (Dipstick) 300 mg/dL (Neg-Trace); Specific Gravity, Urine 1.021 (1.002-1.036); Urobilinogen 0.2 mg/dL (0.2-1.0)
[2017-12-22 10:48] LABS: RBC/HPF 0-3 HPF (0-3); Squamous Epithelial 21-50 HPF (0-3)
[2017-12-22 10:51] LABS: Pathc Cast-AUWi Flag 30.67 (0-2.49)
[2017-12-22 11:01] LABS: Bacteria/HPF 3+ HPF (None Seen); Hyaline Casts/LPF 4-6 HYALINE CAST LPF (0-3 Hyaline); Manual Microscopic Reviewed? No Path Casts Seen; Other Casts/LPF 4-6 FINELY GRAN LPF (0-3 Hyaline); Yeast-All Forms None Seen HPF (None Seen)
--- NOTE | 2017-12-22 11:19 | RAD ---
AP VIEW CHEST: HISTORY: Confusion, weakness, unable to urinate. FINDINGS: AP view chest is performed on 12/22/17. Comparison is made to previous exam from 12/07/17. AP view chest demonstrates sternotomy wires seen. EKG leads are seen over the chest. Cardiomegaly i s noted. There is blunting of the right and left costophrenic angles compatible with bilateral pleural effusio ns, slightly larger on the left than on the right. No other acute abnormality is seen. IMPRESSION: Cardiomegaly and bilateral pleural effusions. POS: [facility]
--- NOTE | 2017-12-22 11:23 | CT ---
CT HEAD NONCONTRAST: History: Altered mental status. Comparison: 12-17-17 FINDINGS: There is no evidence of acute intracranial hemorrhage or infarct. Diffuse cortical atrophy and chroni c ischemic small vessel disease are again demonstrated. No mass effect or shift of midline structures . Soft tissue swelling is apparent over the left parietal calvarium. IMPRESSION: No acute intracranial abnormalities are demonstrated on noncontrast CT head. POS: [facility]
[2017-12-22 11:29] LABS: #Basophils 0.1 thou/uL (0.0-0.2); #Eosinphils 0.2 thou/uL (0.0-0.7); #Lymphocytes 0.7 thou/uL (1.20-3.40); #Monocytes 0.4 thou/uL (0.11-0.59); #Neutrophils 4.6 thou/uL (1.40-6.50); %Eosinophils 2.6 % (0.0-10.0); %Lymphocytes 11.8 % (21.0-51.0); %Monocytes 7.3 % (0.0-10.0); %Neutrophils 77.3 % (42.0-75.0); Hemoglobin 8.8 g/dL (12.0-16.0); Mean Corpuscular HGB CONC 30.5 g/dL (32.0-36.0); Mean Platelet Volume 10.5 fL (7.4-10.4); Platelet Count 111 thou/uL (130-400); RBC Distribution Width 20.3 % (11.5-14.5)
[2017-12-22 11:33] LABS: INR-International Normal Ratio 1.6; PTT 44.2 SEC (22.9-36.1); Prothrombin Time 19.2 SEC (12.0-14.7)
[2017-12-22 11:46] LABS: ALT (SGPT) 28 U/L (8-55); AST (SGOT) 51 U/L (5-34); Albumin 2.8 g/dL (3.4-4.8); Alkaline Phosphatase 96 U/L (40-150); Anion Gap 16 mmol/L (10-20); BUN (Urea Nitrogen) 75 mg/dL (9.8-20.1); Bilirubin, Total 0.5 mg/dL (0.2-1.2); CK (CPK) 70 U/L (29-168); Calc. Creatinine Clearance 0 mL/min (70-130); Calcium 7.9 mg/dL (7.8-10.44); Carbon Dioxide 16 mmol/L (23-31); Chloride 108 mmol/L (98-107); Estimated GFR-MDRD 8; Globulin 3.5 g/dL (2.4-3.5); Glucose 100 mg/dL (83-110); Potassium 6.4 mmol/L (3.5-5.1); Protein, Total 6.3 g/dL (6.0-8.3); Sodium 134 mmol/L (136-145)
[2017-12-22 11:48] LABS: MDiff Complete? YES; Macrocytosis MODERATE=16-30 cells (100X) (0-5/hpf); PLT Morphology Comment Appears Decreased; Polychromasia SLIGHT = 2-3 cells (100X) (0-2/hpf)
[2017-12-22 11:51] LABS: CKMB 4.2 ng/mL (0-6.6)
[2017-12-22 11:55] LABS: Troponin I 0.843 ng/mL (< 0.028)
[2017-12-22] MEDS ORDERED: Piperacillin/Tazobactam 4.5 GM VIAL ONE (12:00)
[2017-12-22] MEDS ORDERED: Sodium Bicarbonate 150 MEQ in Dextrose 5% in Water 850 ML IV SCH (13:45)
--- NOTE | 2017-12-22 14:34 | HP ---
PRIMARY CARE PHYSICIAN: Deena Ward M.D. REASON FOR ADMISSION: Sepsis with acute organ dysfunction, acute encephalopathy , generalized weakness, demand ischemia of myocardium, urinary tract infection, acute on chronic kidney failure and hyperkalemia. HISTORY OF PRESENT ILLNESS: An 82-year-old female who has underlying history of diabetes type 2 with diabetic nephropathy and chronic kidney disease stage 4, who was brought to emergency room by family member for generalized weakness. Patient was confused and weak at home. She was not able to urinate since yesterday. She was incoherent and getting day by day more weak, all this going on for last 3-4 days. She was having low grade fever. Patient was having difficulty ambulating as well. Today in the emergency room, routine blood tests showed hyperkalemia, acute on chronic kidney failure, demand ischemia of myocardium and patient's urinalysis was consistent with urinary tract infection. Patient also has hyperkalemia, monitor was showing bradycardia. She was relatively hypotensive initially, but subsequently blood pressure was improved. Patient also has underlying dementia and she is not able to provide any detailed history. Patient's daughter is present at bedside who provided some history and I reviewed medical record from [facility]. REVIEW OF SYSTEMS: All review of system tried to review with the patient, but unable to review with the patient and not reliable because of her cognitive status and dementia as well as language barrier. PAST MEDICAL HISTORY: Diabetes type 2, diabetic nephropathy, chronic kidney disease stage 4, coronary artery disease with CABG, osteoarthritis, anemia of renal disease, history of chronic respiratory failure requiring intermittent oxygen, peripheral vascular disease. PAST SURGICAL HISTORY: Back surgery, bladder sling surgery, carpal tunnel repair, cataract surgery, cholecystectomy, 3-vessel CABG. PAST PSYCHIATRIC HISTORY: Anxiety and depression. SOCIAL HISTORY: Patient lives with her son and [id number]. No history of tobacco, alcohol or illicit drug abuse. FAMILY HISTORY: Positive for breast cancer, hypertension, and diabetes among several family members. ALLERGY: Patient is not tolerating CARDIZEM, GLIPIZIDE, METFORMIN, METOPROLOL and PROMETHAZINE. CURRENT HOME MEDICATIONS: Calcium with vitamin D 1 tablet p.o. daily, cranberry 500 mg p.o. daily, glucosamine 1 tablet p.o. daily., cilostazol 50 mg p.o. b.i.d., hydralazine 25 mg twice daily, isosorbide dinitrate 60 mg p.o. daily, fish oil 1000 mg p.o. daily, iron one tablet p.o. daily, Lasix 40 mg p.o. daily, Coreg 12.5 mg twice daily, [place] on p.r.n. basis, amitriptyline 25 mg p.o. at bedtime, gabapentin 300 mg twice daily, Zoloft 100 mg p.o. daily, coenzyme Q10 150 mg daily, multivitamin 1 tablet p.o. daily, aspirin 81 mg p.o. daily, Crestor 10 mg p.o. at bedtime, Humalog insulin as per sliding scale, Protonix 40 mg p.o. daily, sodium bicarbonate 650 mg b.i.d., Neupogen once a week. EMERGENCY ROOM COURSE: Patient is given sodium bicarbonate, Lovenox 1 mg per kg , 2 liter IV fluid, Levaquin 750 mg, Zosyn 4.5 gram, atropine 0.5 mg. IMAGING DATA: Monitor strip showing sinus bradycardia. EKG showing junctional rhythm, low voltage QRS complex. CT brain based on my review, no acute intracranial process. Chest x-ray showing cardiomegaly, bilateral pleural effusion. LABORATORY DATA: 1. CBC: WBC 6.0, hemoglobin 8.8, MCV 115, platelet 111. INR 1.6. Sodium 134 , potassium 6.4, chloride 108, carbon dioxide 16, anion gap 16, BUN 75, creatinine 5.40, glucose 100, calcium 7.9, lactic acid 0.8. 2. LFT: AST 51, ALT 28, alkaline phosphatase 96, albumin 2.8. CK 70, CK-MB 4.2, troponin 0.843, BNP 2673. 3. Urinalysis consistent with urinary tract infection. ASSESSMENT AND PLAN/IMPRESSION: 1. Acute encephalopathy due to toxic metabolic etiology as well as underlying urinary tract infection. 2. Sepsis with acute organ dysfunction. Source of infection is urinary tract infection. Patient does have abnormal troponin, acute on chronic kidney failure , encephalopathy and mid sepsis with acute organ dysfunction criteria. 3. Demand ischemia of myocardium/NSTEMI type 2 secondary to infection as well as worsening renal failure. Serial cardiac enzymes will be ordered and Cardiology will be consulted. Obtain echocardiography to assess ejection fraction and other structural abnormality. We will continue aspirin 325 mg p.o. daily. Further investigation will defer to Cardiology. 4. Hyperkalemia likely due to renal failure. The patient will be given sodium bicarbonate 650 mg p.o. b.i.d., Kayexalate 30 grams p.o. one time dose. Nephrology will be consulted. We will avoid any potassium supplementation versus potassium rich diet. 5. Acute on chronic kidney failure, baseline chronic kidney disease stage 4. This patient is almost stage 5 to stage 6. She is nearby on the need of dialysis. I spoke with the family member about renal replacement therapy and they are okay with starting dialysis if needed. We will consult Dr. Jeffery and we will defer further investigation to him. This patient is a very high risk of having fluid overload status which she already has, in which currently she is wheezing after 2 liters of fluid, she may need dialysis. 6. Metabolic acidosis due to renal failure. We are starting sodium bicarbonate therapy. 7. Acute on chronic diastolic heart failure. Patient has cardiomegaly, pulmonary vascular congestion and bilateral pleural effusion. The patient's renal function is so advanced that she will not respond to diuretic therapy. We will obtain echocardiography. 8. Macrocytic anemia and thrombocytopenia with anemia of renal disease. We will start Nephro-Cecile tablet daily. We will monitor platelet counts. Coagulopathy may be related with sepsis. 9. Diabetes type 2. Insulin as per sliding scale per protocol. Diabetic diet will be given. 10. Dyslipidemia. Continue Lipitor 20 mg p.o. at bedtime. 11. Diabetic neuropathy. Continue gabapentin 100 mg t.i.d. 12. Gastroesophageal reflux disease. Continue Protonix 40 mg p.o. daily. 13. Anxiety and depression. Continue Zoloft 100 mg p.o. daily. 14. Peripheral vascular disease. Continue aspirin and cilostazol as per home dosage. 15. Deep venous thrombosis prophylaxis, heparin 5000 units subcu twice daily, monitor platelet count. 16. Gastrointestinal prophylaxis, Protonix 40 mg p.o. daily. 17. Sepsis secondary to urinary tract infection. We will send urine culture and continue meropenem 500 mg IV daily. Follow up on culture result and change antibiotic therapy accordingly. CODE STATUS: The patient is FULL CODE. Patient's son and [id number] is power of scooter mechanic. Plan of care discussed with the patient and family member at bedside in the emergency room. Condition is guarded. Prognosis is guarded. During this admission, we will closely monitor renal function and follow up on culture result. MTDD
[2017-12-22] MEDS ORDERED: Ondansetron HCl/PF 4 MG/2 ML Vial IVP PRN (14:42)
[2017-12-22] MEDS ORDERED: Acetaminophen 325 MG TAB PO PRN (14:42)
[2017-12-22] MEDS ORDERED: Eucerin (Mineral Oil/Petrolatum,White) 30 gm Jar TOP PRN (14:42)
[2017-12-22] MEDS ORDERED: Loperamide HCl 2 MG CAP PO PRN (14:42)
[2017-12-22] MEDS ORDERED: Nitroglycerin 0.4 MG TAB (25 Tab Bottle) SL PRN (14:42)
[2017-12-22] MEDS ORDERED: Dextrose 5% in Water 1,000 ML IV PRN (14:42)
[2017-12-22] MEDS ORDERED: Sodium Chloride 0.65% Nasal 44 ML BOT EA NARE PRN (14:42)
[2017-12-22] MEDS ORDERED: Ondansetron ODT 4 MG TAB PO PRN (14:42)
[2017-12-22] MEDS ORDERED: Senokot 8.6 MG TAB PO PRN (14:42)
[2017-12-22] MEDS ORDERED: Artificial Tear Sol 15 ML BOT EA EYE PRN (14:42)
[2017-12-22] MEDS ORDERED: Diabetic Tussin 200 MG/10 ML UDCUP PO PRN (14:42)
[2017-12-22] MEDS ORDERED: Milk Of Magnesia 30 ML UDCUP PO PRN (14:42)
[2017-12-22] MEDS ORDERED: HumaLOG 300 UNITS/3 ML VIAL SC PRN ×2 (14:42)
[2017-12-22] MEDS ORDERED: hydrALAZINE 20 MG/ML VIAL SLOW IVP PRN (14:42)
[2017-12-22] MEDS ORDERED: Mag-Al 1200 mg/1200 mg/30 ML UDCUP PO PRN (14:42)
[2017-12-22] MEDS ORDERED: Dextrose 50% Abboject 50 ML SYRINGE SLOW IVP PRN (14:42)
[2017-12-22] MEDS ORDERED: Chloraseptic Spray 180 ml Bottle PO PRN (14:42)
[2017-12-22] MEDS ORDERED: Loratadine 10 MG TAB PO PRN (14:42)
[2017-12-22] MEDS ORDERED: Calcium Gluc 4.6 MEQ/10 ML (100 MG/ML) SLOW IVP SCH (15:30)
[2017-12-22] MEDS ORDERED: Epoetin (ESRD) 20,000 UNITS/ML SC SCH (15:30)
[2017-12-22 15:49] LABS: CKMB 4.1 ng/mL (0-6.6)
[2017-12-22 15:50] LABS: Critical Call Chem Troponin I RESULT DECREASING; Troponin I 0.761 ng/mL (< 0.028)
--- NOTE | 2017-12-22 17:09 | CON ---
DATE OF CONSULTATION: 12/22/2017 CARDIOLOGY CONSULTATION REASON FOR CONSULTATION: Elevated troponins. PRIMARY FLEET DISPATCH MANAGER: Dr. Neela Marroquin. HISTORY OF PRESENT ILLNESS: Ms. York is a pleasant 82-year-old female who comes to the hospital for just being weak and altered. She was evaluated and was found to have volume overload wi th bilateral pleural effusions and elevated BNP. She also had a UA that was 30 and suggestive of uri nary tract infection. She was also found to have elevated creatinine and elevated potassium. Cardio logy is being consulted as her troponin was also elevated. PAST MEDICAL HISTORY: 1. Chronic kidney disease stage 5 now. 2. Coronary artery disease, status post bypass grafting in 2006 with most recently a repeat angiogra phy in 2011 showing patent bypasses. 3. Hypertension. 4. Type 2 diabetes. 5. Osteoarthritis. 6. Peripheral vascular disease. PAST SURGICAL HISTORY: 1. Bladder surgery in 1964. 2. Back surgery. 3. Right carpal tunnel. 4. Cataract surgery. 5. Bypass graft x3 in 2006. 7. Cholecystectomy. 8. PEG tube placement and removal in 2011. OUTPATIENT MEDICATIONS: Reviewed. 1. Vitamin D. 2. Cranberry. 3. Glucosamine. 4. Deltasone. 5. Hydralazine 25 mg b.i.d. 6. Imdur 60 mg daily. 7. Fish oil. 8. Iron tablets. 9. Lasix 40 mg a day. 10. Coreg 12.5 mg twice a day. 11. [place]ner p.r.n. 12. Amitriptyline. 13. Gabapentin. 14. Zoloft. 15. Coenzyme Q10. 16. Multivitamin daily. 17. Aspirin 81 a day. 18. Crestor 10 mg at bedtime. 19. Humalog insulin. 20. Protonix. 21. Sodium bicarbonate. 22. Neupogen. ALLERGIES: DILTIAZEM, GLIPIZIDE, METFORMIN, METOPROLOL, PRAVASTATIN, PROMETHAZINE. REVIEW OF SYSTEMS: Unobtainable as the patient is somnolent. PHYSICAL EXAMINATION: VITAL SIGNS: Temperature 97.7, pulse 49, respiratory rate 16, satting 100% on 3 liters, blood pressu re 143/61. GENERAL: She is somnolent but easily arousable, oriented to person and place only. HEENT: Normocephalic, atraumatic. NECK: Supple. LUNGS: Clear with reduced breath sounds bilaterally at the bases. CARDIOVASCULAR: S1, S2, no S3, S4. There is a grade 2/6 systolic murmur at the right upper sternal border, heart rate in the upper 40s to lower 50s. ABDOMEN: Soft, positive bowel sounds. EXTREMITIES: No edema. SKIN: Cold on her bilateral lower extremities with skin color much darker than the rest of her skin suggestive of chronic venous insufficiency versus just changes from diabetes. LABORATORY DATA: Laboratory work was reviewed. CBC: White count of 6, hemoglobin of 8.8, hematocri t of 28, platelet count of 111. Coags were reviewed. Chemistries were reviewed. Sodium 134, potass ium was 6.4, chloride of 108, carbon dioxide of 16, anion gap of 16, BUN 75, creatinine of 5.4, GFR o f 8, glucose of 100, lactic acid of 0.8, calcium 7.9, total bilirubin 0.5, AST 51, ALT 28, alkaline p hosphatase 96. CK 70, CK-MB 4.2, troponin of 0.8. BNP was 2600. Albumin of 2.8, globulin 3.5. UA was reviewed. ASSESSMENT AND PLAN: 1. Non-ST elevation myocardial infarction: Most likely demand ischemia from her current process. N o evidence of an ACS in EKG or on symptoms. Continue conservative therapy. No indication for antico agulation at this time. 2. Acute kidney injury on chronic kidney disease. She may be uremic and this may not even an infect ious process. She may just need emergent dialysis to be a little more awake. We will defer this to Nephrology that has already been consulted. 3. Bradycardia: She was bradycardic in the upper 30s to low 40s when she was sleeping. She woke up and she went to the low 50s and is currently in the low 50s while sitting up. She, however, appears to be in junctional rhythm. Most likely related to hyperkalemia. We already received calcium gluco marie and is scheduled to get Kayexalate. To get this potassium down, she may need dialysis and Dr. Ruddy lee is already being consulted. 4. Hyperkalemia as above. 5. Coronary artery disease, stable for now. Thank you for letting us to participate in the care of your patient. We will follow. Dr. Cara pacheco take over tomorrow. Echocardiogram to be done.
[2017-12-22] MEDS: Albumin 25% 25 GM/100 ML BOT IVPB SCH (17:54)
[2017-12-22 18:37] LABS: CKMB 4.1 ng/mL (0-6.6)
[2017-12-22 18:42] LABS: Troponin I 0.797 ng/mL (< 0.028)
--- NOTE | 2017-12-22 20:35 | CON ---
DATE OF CONSULTATION: 12/22/2017 SERVICE: Renal Medicine. HISTORY OF PRESENT ILLNESS: Ms. York is an 82-year-old female with known history of chr onic renal failure due to a presumed diabetic/hypertensive nephropathy and readmitted due to complain t of acute renal retention. On close questioning, according to the daughter, the patient may have decreased urine quantity, altho ugh she uses a diaper and noted that the diaper was not getting wet. Of interest, the patient has de creased p.o. intake as well was on a diuretic, but was only given once a week. We are being consulte d for acute kidney injury as well as hyperkalemia. REVIEW OF SYSTEMS: Positive for generalized malaise, decreased appetite, decreased energy level, dec reased urine output. No abdominal pain. Denies any shortness of breath, no nausea, no vomiting, no diarrhea, no constipation, no hematochezia, no melena, no hematemesis. Occasional confusion. PAST MEDICAL HISTORY: 1. The patient has history of chronic renal failure secondary to diabetic nephropathy, status post c ongestive heart failure. 2. Coronary artery disease. 3. Diabetic neuropathy. 4. Type 2 diabetes mellitus. 5. COPD. 6. Hypertension. 7. Peripheral vascular disease. 8. Status post TIA. 9. History of sciatica. 10. Status post pneumonia. PAST SURGICAL HISTORY: 1. Status post back surgery. 2. Status post appendectomy. 3. Status post stent placement of the lower extremity. 4. Status post cholecystectomy. 5. Status post cardiac catheterization. 6. Status post CABG. 7. Status post intubation. 8. Status post eye surgery. 9. Status post upper and lower GI endoscopy. 10. Status post bladder suspension repair. 11. Status post carpal tunnel repair. 12. Status post cataract surgery. SOCIAL HISTORY: The patient lives with her daughter. She is and lives in [place]. Sedentary lifestyle. No IV drug abuse. Status post blood transfusion. Four children. No history of smoking. Education: Second grade. Alcohol: None. 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 ALLERGIES: None. TRAUMA: Status post left ankle fracture. IMMUNIZATIONS: Up-to-date. HOSPITALIZATIONS: Please see past medical history. FAMILY HISTORY: No family history of ESRD. PHYSICAL EXAMINATION: VITAL SIGNS: Blood pressure is 140/70, heart rate 70. GENERAL: Awake, supine, comfortable, not in distress, morbidly obese. SKIN: Adequate turgor. HEENT: Slightly pale conjunctivae, anicteric sclerae. NECK: No neck mass, no carotid bruits, no JVD. CHEST: No deformities. LUNGS: Decreased breath sounds. No wheezing, no crackles. HEART: Normal sinus rhythm. No murmur, no gallops, no rubs. ABDOMEN: Globular, soft, nontender, no masses. EXTREMITIES: Extremities -- lower, no edema. Bilateral upper extremity swelling. NEUROLOGIC: Moving all extremities, oriented to 3 spheres. No tremors, no asterixis. MEDICATIONS: Medications of 12/22/2017: The patient is on glucagon p.r.n. She is on DuoNeb q.6 chica rs, aspirin 325 mg once a day, status post calcium gluconate, Procrit 7500 subcutaneously every week, heparin 5000 units subcutaneously b.i.d., Humalog sliding scale, status post lactulose, Imodium p.r. n., meropenem 500 mg IV daily, Zofran 4 mg q.6 hours p.r.n., sodium bicarbonate 650 mg p.o. b.i.d. LABORATORY DATA: Laboratories of 12/22/2017: Sodium 134, potassium 6.4, chloride 106, carbon dioxid e 16, BUN 75, creatinine 5.4, GFR 8 mL per minute, glucose 100, calcium 7.9, AST 51, ALT 28, CK 70, a lbumin 2.8. BNP is 2673. Troponin I 0.761. IMAGING: Chest x-ray shows bilateral pleural effusion, cardiomegaly, no infiltrates or overt CHF. ASSESSMENT AND PLAN: 1. Hyperkalemia -- calcium gluconate, insulin, and Kayexalate have been given. We will recheck in 6 hours after initiation of this medicine. 2. Acute kidney injury on top of her chronic renal failure, higher creatinine from baseline. Most r ecent creatinine is 5.4 and the patient was discharged with a creatinine of 3.5, which is her baselin e. At the present time, she may have a prerenal component. I will start her on salt poor albumin 25 grams IV q.6 hours for 3 days. There is no indication for any acute dialytic intervention. 3. Anemia. I agree with weekly Epogen/Procrit 7500 units subcutaneously every week. Overall, prognosis remains guarded.
[2017-12-22] MEDS ORDERED: Sodium Bicarbonate Tab 325 MG TAB PO SCH (21:00)
[2017-12-22] MEDS ORDERED: Heparin 5,000 UNITS/ML VIAL SC SCH (21:00)
[2017-12-22 23:23] LABS: Anion Gap 16 mmol/L (10-20); BUN (Urea Nitrogen) 76 mg/dL (9.8-20.1); Calc. Creatinine Clearance 9 mL/min (70-130); Carbon Dioxide 17 mmol/L (23-31); Chloride 107 mmol/L (98-107); Estimated GFR-MDRD 7; Glucose 123 mg/dL (83-110); Potassium 6.4 mmol/L (3.5-5.1); Sodium 134 mmol/L (136-145)
[2017-12-23] MEDS: Albumin 25% 25 GM/100 ML BOT IVPB SCH ×4 (00:12→17:36)
[2017-12-23 05:32] LABS: ALT (SGPT) 23 U/L (8-55); AST (SGOT) 35 U/L (5-34); Albumin 3.3 g/dL (3.4-4.8); Alkaline Phosphatase 82 U/L (40-150); Anion Gap 21 mmol/L (10-20); BUN (Urea Nitrogen) 76 mg/dL (9.8-20.1); Bilirubin, Total 0.6 mg/dL (0.2-1.2); Calc. Creatinine Clearance 9 mL/min (70-130); Carbon Dioxide 10 mmol/L (23-31); Chloride 110 mmol/L (98-107); Estimated GFR-MDRD 7; Globulin 3.4 g/dL (2.4-3.5); Glucose 99 mg/dL (83-110); Potassium 6.4 mmol/L (3.5-5.1); Protein, Total 6.7 g/dL (6.0-8.3); Sodium 135 mmol/L (136-145)
[2017-12-23 05:50] LABS: #Eosinphils 0.1 thou/uL (0.0-0.7); #Lymphocytes 0.7 thou/uL (1.20-3.40); #Monocytes 0.4 thou/uL (0.11-0.59); #Neutrophils 3.5 thou/uL (1.40-6.50); %Basophils 0.8 % (0.0-1.0); %Lymphocytes 14.4 % (21.0-51.0); %Monocytes 9.3 % (0.0-10.0); %Neutrophils 72.6 % (42.0-75.0); Anisocytosis SLIGHT = 6-15 cells (100X) (0-5/hpf); Hemoglobin 8.7 g/dL (12.0-16.0); MDiff Complete? YES; Macrocytosis SLIGHT = 6-15 cells (100X) (0-5/hpf); Mean Corpuscular HGB CONC 30.6 g/dL (32.0-36.0); Mean Corpuscular Hemoglobin 35.1 pg (27.0-31.0); Mean Platelet Volume 10.5 fL (7.4-10.4); Ovalocytes SLIGHT = 2-5 cells (100X) (0-1/hpf); PLT Morphology Comment Appears Decreased; Platelet Count 99 thou/uL (130-400); RBC Distribution Width 20.4 % (11.5-14.5); Red Blood Cell (RBC) Count 2.48 mill/uL (4.20-5.40); White Blood Cell (WBC) Count 4.8 thou/uL (4.8-10.8)
[2017-12-23] MEDS: Folic Acid/Vit B Comp W-C PO SCH (09:40)
[2017-12-23] MEDS: Aspirin 325 MG TAB PO SCH (09:40)
[2017-12-23] MEDS: Sodium Bicarbonate Tab 325 MG TAB PO SCH ×3 (09:40→20:20)
[2017-12-23] MEDS: Meropenem 500 MG in Sodium Chloride 0.9% 100 ML IVPB SCH (10:50)
--- NOTE | 2017-12-23 11:05 | PRG ---
DATE OF SERVICE: 12/23/2017 RENAL MEDICINE SUBJECTIVE: Ms. York is an 82-year-old white female with chronic renal failure and was admitted for generalized malaise. We were consulted due to her worsening renal dysfunction. Her cre atinine was again elevated. I have decided to start her on salt poor albumin 35 grams IV q.6. I am still undecided whether we ne ed to start her on normal saline. She seems to be tolerating the salt poor albumin. Creatinine is r elatively unchanged. Potassium is also unchanged at 6.4. She voices no new complaints today. She d enies any chest pain, shortness of breath. PHYSICAL EXAMINATION: VITAL SIGNS: Blood pressure is 119/57, heart rate is 48, respiratory rate 16, O2 sat 97%. HEENT: Noted to be awake, supine, comfortable, mildly dysarthric, not in distress. SKIN: Adequate turgor. HEENT: Slightly pale conjunctivae, anicteric sclerae. NECK: No neck mass, no carotid bruits, no JVD. CHEST: No deformities. LUNGS: Clear breath sounds, no wheezing, no crackles. HEART: Normal sinus rhythm. No murmurs, no gallops or rubs. ABDOMEN: Globular, soft, nontender. EXTREMITIES: Trace edema. MEDICATIONS: Medications of 12/23/2017 was reviewed. LABORATORY DATA: Laboratories of 12/23/2017; white count 4.8, hemoglobin 8.7, hematocrit (01:3 4). Sodium 135, potassium 6.4, chloride 110, carbon dioxide is noted at 10, BUN 76, creatinine 5.62, glucose 99, AST 35, ALT 23, albumin 3.3. ASSESSMENT AND PLAN: 1. Acute kidney injury on top of her chronic renal failure, consider the possibility of a prerenal a zotemia on top of her chronic renal failure. Continue salt poor albumin. Renal function is relative ly stable. No indication for any dialytic intervention. 2. Hyperkalemia. We will give another dose of Kayexalate 30 grams with 30 mL of lactulose. 3. Anemia, continuing weekly Epogen. 4. Metabolic acidosis - increase sodium bicarbonate to t.i.d. dosing. Recheck base met and CBC in a .m.
--- NOTE | 2017-12-23 12:26 | PDOC.PN ---
- Subjective Encounter Start Date: 12/23/17 Encounter Start Time: 07:10 Patient seen and examined for sepsis, she is confused, No overnight events - Objective Resuscitation Status: Resuscitation Status FULL:Full Resuscitation MAR Reviewed: Yes Vital Signs & Weight: Vital Signs (12 hours) Temp Pulse Resp BP Pulse Ox 12/23/17 12:00 97.2 F L 49 L 89/49 L 100 12/23/17 07:46 97.5 F L 49 L 18 112/53 L 100 12/23/17 07:31 48 L 16 97 12/23/17 04:00 98.0 F 62 20 119/57 L 94 L 12/23/17 00:50 49 L 18 98 Weight Weight 176 lb 11.2 oz I&O: 12/22/17 12/23/17 12/24/17 06:59 06:59 06:59 Intake Total 0 Balance 0 Result Diagrams: 12/23/17 03:57 12/23/17 03:57 Additional Labs: Accuchecks 12/23/17 12/23/17 12/22/17 11:39 06:10 20:31 POC Glucose 136 H 113 H 123 H 12/22/17 16:44 POC Glucose 133 H EKG Reviewed by me: Yes (nsr) Phys Exam - Physical Examination Constitutional: NAD confused HEENT: PERRLA, sclera anicteric Neck: no JVD, supple Respiratory: wheezing present reduced air entry at base Cardiovascular: RRR, no significant murmur, no rub Gastrointestinal: soft, non-tender, no distention, positive bowel sounds Musculoskeletal: pulses present, edema present Neurological: moves all 4 limbs Lymphatic: no nodes Psychiatric: normal affect Skin: no rash, normal turgor Dx/Plan (1) Acute metabolic encephalopathy Code(s): G93.41 - METABOLIC ENCEPHALOPATHY Status: Acute Comment: (2) Acute worsening of stage 4 chronic kidney disease Code(s): N28.9 - DISORDER OF KIDNEY AND URETER, UNSPECIFIED; N18.4 - CHRONIC KIDNEY DISEASE, STAGE 4 (SEVERE) Status: Acute Comment: (3) Demand ischemia of myocardium Code(s): I24.8 - OTHER FORMS OF ACUTE ISCHEMIC HEART DISEASE Status: Acute (4) Hyperkalemia Code(s): E87.5 - HYPERKALEMIA Status: Acute (5) Sepsis with acute organ dysfunction Code(s): A41.9 - SEPSIS, UNSPECIFIED ORGANISM; R65.20 - SEVERE SEPSIS WITHOUT SEPTIC SHOCK Status: Acute (6) Thrombocytopenia Code(s): D69.6 - THROMBOCYTOPENIA, UNSPECIFIED Status: Acute (7) UTI (urinary tract infection), bacterial Code(s): N39.0 - URINARY TRACT INFECTION, SITE NOT SPECIFIED; A49.9 - BACTERIAL INFECTION, UNSPECIFIED Status: Acute Comment: (8) Acidosis, metabolic Code(s): E87.2 - ACIDOSIS Status: Chronic Comment: due to renal failure (9) Anemia of renal disease Code(s): D63.1 - ANEMIA IN CHRONIC KIDNEY DISEASE Status: Chronic (10) Anxiety and depression Code(s): F41.9 - ANXIETY DISORDER, UNSPECIFIED; F32.9 - MAJOR DEPRESSIVE DISORDER, SINGLE EPISODE, UNSPECIFIED Status: Chronic (11) CAD (coronary artery disease) Code(s): I25.10 - ATHSCL HEART DISEASE OF [place] CORONARY ARTERY W/O ANG PCTRS Status: Chronic (12) Chronic pain Code(s): G89.29 - OTHER CHRONIC PAIN Status: Chronic (13) Diabetes type 2, controlled Code(s): E11.9 - TYPE 2 DIABETES MELLITUS WITHOUT COMPLICATIONS Status: Chronic (14) Dyslipidemia Code(s): E78.5 - HYPERLIPIDEMIA, UNSPECIFIED Status: Chronic (15) Hypoalbuminemia Code(s): E88.09 - OTH DISORDERS OF PLASMA-PROTEIN METABOLISM, NEC Status: Chronic (16) Macrocytic anemia Code(s): D53.9 - NUTRITIONAL ANEMIA, UNSPECIFIED Status: Chronic (17) Obesity (BMI 30-39.9) Code(s): E66.9 - OBESITY, UNSPECIFIED Status: Chronic (18) Peripheral vascular disease due to secondary diabetes Code(s): E13.51 - OTH DIABETES W DIABETIC PERIPHERAL ANGIOPATHY W/O GANGRENE Status: Chronic - Plan cont current plan of care, plan discussed w/ family, continue antibiotics * renal function still not changed * currently on albumin * potassium still high * she has uremia * she will need HD * nephrology following * prognosis is poor * will consult palliative care * continue meropenam * follow on culture * medication reviewed as below * symptomatic treatment * discussed with family * cardiology and nephrology recommendation noted. Review of Systems - Review of Systems Other: not reliable and unable to obtain due to encephalopathy - Medications/Allergies Allergies/Adverse Reactions: Allergies Allergy/AdvReac Type Severity Reaction Status Date / Time diltiazem Allergy Verified 10/20/17 01:07 glipizide Allergy Verified 10/20/17 01:07 metformin Allergy Verified 10/20/17 01:07 metoprolol Allergy Verified 10/20/17 01:07 pravastatin [From Pravachol] Allergy Verified 10/20/17 01:07 promethazine Allergy Verified 10/20/17 01:07 Medications: Current Medications Acetaminophen (Tylenol) 650 mg PO Q4H PRN PRN Reason: Headache/Fever or Pain Al Hydroxide/Mg Hydroxide (Maalox) 30 ml PO Q6H PRN PRN Reason: Heartburn or Indigestion Albumin Human (Albumin 25%) 25 gm IVPB Q6HR [facility] Stop: 12/25/17 18:01 Last Admin: 12/23/17 12:21 Dose: 25 gm Albuterol/Ipratropium (Duoneb) 3 ml NEB [id number] [facility] Last Admin: 12/23/17 07:31 Dose: 3 ml Albuterol/Ipratropium (Duoneb) 3 ml NEB [id number] PRN PRN Reason: SOB &/or Wheezing Artificial Tears (Tears Renewed 15ml Bottle) 0 drop EA EYE PRN PRN PRN Reason: Dry Eyes Aspirin (Aspirin) 325 mg PO DAILY [facility] Last Admin: 12/23/17 09:40 Dose: 325 mg Dextrose/Water (Dextrose 50%) 25 gm SLOW IVP PRN PRN PRN Reason: Hypoglycemia Glucagon (Glucagon) 1 mg IM PRN PRN PRN Reason: Hypoglycemia Guaifenesin (Robitussin Sf) 200 mg PO Q4H PRN PRN Reason: Cough Hydralazine HCl (Apresoline) 10 mg SLOW IVP Q4H PRN PRN Reason: Systolic BP > 180 Dextrose/Water (D5w) 1,000 mls @ 0 mls/hr IV .Q0M PRN; As Directed PRN Reason: Hypoglycemia Meropenem 500 mg/ Sodium (Chloride) 100 mls @ 200 mls/hr IVPB DAILY [facility] Last Admin: 12/23/17 10:50 Dose: 100 mls Insulin Human Lispro (Humalog) 0 units SC .MODERATE SLIDING SC PRN PRN Reason: Moderate Correctional Scale Insulin Human Lispro (Humalog) 0 units SC .BEDTIME SLIDING SC PRN PRN Reason: Bedtime Correctional Scale Loperamide HCl (Imodium) 2 mg PO PRN PRN PRN Reason: Diarrhea/Loose Stools Loratadine (Claritin) 10 mg PO DAILYPRN PRN PRN Reason: Sinus Symptoms Magnesium Hydroxide (Milk Of Magnesium) 30 ml PO DAILYPRN PRN PRN Reason: Constipation Mineral Oil/White Petrolatum (Eucerin Cream) 0 gm TOP BIDPRN PRN PRN Reason: Dry Skin Nitroglycerin (Nitrostat) 0.4 mg SL Q5MIN PRN PRN Reason: Chest Pain Ondansetron HCl (Zofran Odt) 4 mg PO Q6H PRN PRN Reason: Nausea/Vomiting Ondansetron HCl (Zofran) 4 mg IVP Q6H PRN PRN Reason: Nausea/Vomiting Phenol (Chloraseptic [place] 180 Ml Bot) 0 ml PO PRN PRN PRN Reason: Sore Throat Senna (Senokot) 2 tab PO HSPRN PRN PRN Reason: Constipation Sodium Bicarbonate (Bicarbonate, Sodium) 650 mg PO TID [facility] Last Admin: 12/23/17 09:40 Dose: 650 mg Sodium Chloride ([place] Nasal Telephone 0.65%) 0 ml EA NARE QIDPRN PRN PRN Reason: Nasal Congestion Sodium Chloride (Flush - Normal Saline) 10 ml IVF Q12HR [facility] Last Admin: 12/23/17 09:41 Dose: Not Given Sodium Chloride (Flush - Normal Saline) 10 ml IVF PRN PRN PRN Reason: Saline Flush Vitamin B Complex/Vit C/Folic Acid (Nephro-Cecile Tablet) 1 tab PO DAILY [facility] Last Admin: 12/23/17 09:40 Dose: 1 tab
[2017-12-24] MEDS: Albumin 25% 25 GM/100 ML BOT IVPB SCH ×4 (00:01→17:52)
[2017-12-24 05:13] LABS: Anion Gap 18 mmol/L (10-20); BUN (Urea Nitrogen) 75 mg/dL (9.8-20.1); Calc. Creatinine Clearance 9 mL/min (70-130); Calcium 8.1 mg/dL (7.8-10.44); Carbon Dioxide 16 mmol/L (23-31); Chloride 108 mmol/L (98-107); Estimated GFR-MDRD 6; Glucose 144 mg/dL (83-110); Potassium 5.3 mmol/L (3.5-5.1); Sodium 137 mmol/L (136-145)
[2017-12-24 05:47] LABS: Acanthocytes SLIGHT = 1-5 cells (100X) (None Seen); Anisocytosis SLIGHT = 6-15 cells (100X) (0-5/hpf); Band 7 % (5-11); Elliptocytes SLIGHT = 2-5 cells (100X) (0-1/hpf); Eosinophils 3 % (0-10); Hemoglobin 8.6 g/dL (12.0-16.0); Lymphocytes 10 % (21-51); MDiff Complete? YES; Mean Corpuscular HGB CONC 30.2 g/dL (32.0-36.0); Mean Platelet Volume 9.9 fL (7.4-10.4); Monocytes 6 % (0-10); Neutrophil 73 % (42-75); Nucleated RBC 3 % (0); PLT Morphology Comment Appears Decreased; Platelet Count 80 thou/uL (130-400); RBC Distribution Width 20.5 % (11.5-14.5); Red Blood Cell (RBC) Count 2.54 mill/uL (4.20-5.40); Schistocytes SLIGHT = 2-5 cells (100X) (0-1/hpf); White Blood Cell (WBC) Count 4.5 thou/uL (4.8-10.8)
[2017-12-24] MEDS ORDERED: Sodium Chloride 0.9% 1,000 ML IV SCH (09:15)
[2017-12-24] MEDS: Aspirin 325 MG TAB PO SCH (09:32)
[2017-12-24] MEDS: Folic Acid/Vit B Comp W-C PO SCH (09:32)
[2017-12-24] MEDS: Sodium Bicarbonate Tab 325 MG TAB PO SCH ×3 (09:33→21:00)
[2017-12-24] MEDS: Meropenem 500 MG in Sodium Chloride 0.9% 100 ML IVPB SCH (09:34)
--- NOTE | 2017-12-24 09:44 | PRG ---
DATE OF SERVICE: 12/24/2017 SERVICE: Renal Medicine. SUBJECTIVE: Ms. York is an 82-year-old female with acute kidney injury on top of her ch ronic renal failure. I empirically started salt-poor albumin, but the renal function remains improve d. She was also noted to be hyperkalemic and this has improved over time. My plan is to do a gentle volume repletion with normal saline. She has no other complaints. She is still confused from time- to-time. OBJECTIVE: VITAL SIGNS: Blood pressure is 116/55, heart rate 61, respiratory rate 12, temperature 97.6, pulse o ximetry 100%. GENERAL EXAM: Awake, comfortable, not in overt distress, obese. SKIN: Adequate turgor. HEENT: Slightly pale conjunctivae, anicteric sclerae. NECK: No neck mass, no carotid bruits, no JVD. CHEST: No deformities. LUNGS: Decreased breath sounds. Occasional wheezing. HEART: Normal sinus rhythm. No murmur, no gallops, no rubs. ABDOMEN: Globular, soft, nontender, no masses. EXTREMITIES: No edema. MEDICATIONS: 12/24/2017 reviewed. LABORATORY DATA: Laboratories of 12/24/2017, white count 4.5, hemoglobin 8.6. Sodium 137, potassium 5.3, chloride 108, carbon dioxide 16, BUN 75, creatinine 6.18, glucose 144, calcium 8.1. ASSESSMENT AND PLAN: 1. Acute kidney injury on top of her chronic renal failure, possibility of a prerenal azotemia on to p of her chronic renal failure. We will start normal saline 100 mL per hour. Observe for possible v olume overload. We will hold off any dialysis. The daughter says not to initiate dialysis. 2. Hyperkalemia, improved with kayexalate. Continue current management. 3. Chronic anemia, on weekly Epogen shots. We will check basic metabolic panel and CBC in a.m.
--- NOTE | 2017-12-24 11:53 | PDOC.PN ---
- Subjective Encounter Start Date: 12/24/17 Encounter Start Time: 07:00 this morning pt was wheezing, she has increased edema over upper extrimity, family bedside Patient seen and examined for renal failure. No overnight events - Objective Resuscitation Status: Resuscitation Status FULL:Full Resuscitation MAR Reviewed: Yes Vital Signs & Weight: Vital Signs (12 hours) Temp Pulse Resp BP Pulse Ox 12/24/17 08:08 97.6 F 61 12 126/55 L 100 12/24/17 07:45 98 12/24/17 07:43 61 16 98 12/24/17 04:00 96.6 F L 53 L 18 105/51 L 97 12/24/17 03:36 98 12/24/17 00:57 58 L 18 94 L 12/24/17 00:00 97.3 F L 56 L 16 121/59 L 94 L Weight Admit Weight 168 lb 1.6 oz Weight 182 lb I&O: 12/23/17 12/24/17 12/25/17 06:59 06:59 06:59 Intake Total 0 Balance 0 Result Diagrams: 12/24/17 04:36 12/24/17 04:36 Additional Labs: Accuchecks 12/24/17 12/24/17 12/23/17 11:04 05:34 20:39 POC Glucose 163 H 138 H 160 H 12/23/17 12/23/17 16:40 11:39 POC Glucose 125 H 136 H EKG Reviewed by me: Yes (nsr) Phys Exam - Physical Examination Constitutional: NAD HEENT: PERRLA, moist MMs, sclera anicteric Neck: no JVD, supple Respiratory: wheezing present reduced air entry at base Cardiovascular: RRR, no significant murmur, no rub Gastrointestinal: soft, non-tender, no distention, positive bowel sounds Musculoskeletal: pulses present, edema present Neurological: moves all 4 limbs Lymphatic: no nodes Psychiatric: normal affect Skin: no rash, normal turgor Dx/Plan (1) Acute metabolic encephalopathy Code(s): G93.41 - METABOLIC ENCEPHALOPATHY Status: Acute Comment: (2) Acute worsening of stage 4 chronic kidney disease Code(s): N28.9 - DISORDER OF KIDNEY AND URETER, UNSPECIFIED; N18.4 - CHRONIC KIDNEY DISEASE, STAGE 4 (SEVERE) Status: Acute Comment: (3) Demand ischemia of myocardium Code(s): I24.8 - OTHER FORMS OF ACUTE ISCHEMIC HEART DISEASE Status: Acute (4) Hyperkalemia Code(s): E87.5 - HYPERKALEMIA Status: Acute (5) Sepsis with acute organ dysfunction Code(s): A41.9 - SEPSIS, UNSPECIFIED ORGANISM; R65.20 - SEVERE SEPSIS WITHOUT SEPTIC SHOCK Status: Acute (6) Thrombocytopenia Code(s): D69.6 - THROMBOCYTOPENIA, UNSPECIFIED Status: Acute (7) UTI (urinary tract infection), bacterial Code(s): N39.0 - URINARY TRACT INFECTION, SITE NOT SPECIFIED; A49.9 - BACTERIAL INFECTION, UNSPECIFIED Status: Acute Comment: (8) Acidosis, metabolic Code(s): E87.2 - ACIDOSIS Status: Chronic Comment: due to renal failure (9) Anemia of renal disease Code(s): D63.1 - ANEMIA IN CHRONIC KIDNEY DISEASE Status: Chronic (10) Anxiety and depression Code(s): F41.9 - ANXIETY DISORDER, UNSPECIFIED; F32.9 - MAJOR DEPRESSIVE DISORDER, SINGLE EPISODE, UNSPECIFIED Status: Chronic (11) CAD (coronary artery disease) Code(s): I25.10 - ATHSCL HEART DISEASE OF [place] CORONARY ARTERY W/O ANG PCTRS Status: Chronic (12) Chronic pain Code(s): G89.29 - OTHER CHRONIC PAIN Status: Chronic (13) Diabetes type 2, controlled Code(s): E11.9 - TYPE 2 DIABETES MELLITUS WITHOUT COMPLICATIONS Status: Chronic (14) Dyslipidemia Code(s): E78.5 - HYPERLIPIDEMIA, UNSPECIFIED Status: Chronic (15) Hypoalbuminemia Code(s): E88.09 - OTH DISORDERS OF PLASMA-PROTEIN METABOLISM, NEC Status: Chronic (16) Macrocytic anemia Code(s): D53.9 - NUTRITIONAL ANEMIA, UNSPECIFIED Status: Chronic (17) Obesity (BMI 30-39.9) Code(s): E66.9 - OBESITY, UNSPECIFIED Status: Chronic (18) Peripheral vascular disease due to secondary diabetes Code(s): E13.51 - OTH DIABETES W DIABETIC PERIPHERAL ANGIOPATHY W/O GANGRENE Status: Chronic - Plan cont current plan of care, plan discussed w/ family, saunders catheter, continue antibiotics, respiratory therapy * pt's renal function is not improving, does not suspect any dehydration, i think this pt has gradual decline in her renal function and now ESRD, she will need dialysis, i discussed with family, IVF started this morning and pt is getting fluid overloaded, i am concerned about respi distress, will stop IVF for now, will get chest xray, I spoke with DR vivas about this and he will review chest xray and decide about any need for HD * continue meropenam for UTI, follow culture * pt wanted to be on full code and daughter ok with HD if needed * medication reviewed as below * symptomatic treatment * prognosis guarded * I have provided detail answer about HD option to family . Review of Systems - Review of Systems Constitutional: weakness, malaise. negative: fever, chills, sweats, other Respiratory: Shortness of Breath, SOB with Excertion, Wheezing. negative: Cough , Dry, Hemoptysis, Pleuritic Pain, Sputum Cardiovascular: edema. negative: chest pain, palpitations, orthopnea, paroxysmal nocturnal dyspnea, light headedness, other Gastrointestinal: negative: Nausea, Vomiting, Abdominal Pain, Diarrhea, Constipation, Melena, Hematochezia, Other Genitourinary: negative: Dysuria, Frequency, Incontinence, Hematuria, Retention , Other Musculoskeletal: negative: Neck Pain, Shoulder Pain, Arm Pain, Back Pain, Hand Pain, Leg Pain, Foot Pain, Other Skin: negative: Rash, Lesions, Phil, Bruising, Other - Medications/Allergies Allergies/Adverse Reactions: Allergies Allergy/AdvReac Type Severity Reaction Status Date / Time diltiazem Allergy Verified 10/20/17 01:07 glipizide Allergy Verified 10/20/17 01:07 metformin Allergy Verified 10/20/17 01:07 metoprolol Allergy Verified 10/20/17 01:07 pravastatin [From Pravachol] Allergy Verified 10/20/17 01:07 promethazine Allergy Verified 10/20/17 01:07 Medications: Current Medications Acetaminophen (Tylenol) 650 mg PO Q4H PRN PRN Reason: Headache/Fever or Pain Al Hydroxide/Mg Hydroxide (Maalox) 30 ml PO Q6H PRN PRN Reason: Heartburn or Indigestion Albumin Human (Albumin 25%) 25 gm IVPB Q6HR [facility] Stop: 12/25/17 18:01 Last Admin: 12/24/17 05:37 Dose: 25 gm Albuterol/Ipratropium (Duoneb) 3 ml NEB [id number] [facility] Last Admin: 12/24/17 07:43 Dose: 3 ml Albuterol/Ipratropium (Duoneb) 3 ml NEB [id number] PRN PRN Reason: SOB &/or Wheezing Artificial Tears (Tears Renewed 15ml Bottle) 0 drop EA EYE PRN PRN PRN Reason: Dry Eyes Aspirin (Aspirin) 325 mg PO DAILY [facility] Last Admin: 12/24/17 09:32 Dose: 325 mg Dextrose/Water (Dextrose 50%) 25 gm SLOW IVP PRN PRN PRN Reason: Hypoglycemia Glucagon (Glucagon) 1 mg IM PRN PRN PRN Reason: Hypoglycemia Guaifenesin (Robitussin Sf) 200 mg PO Q4H PRN PRN Reason: Cough Hydralazine HCl (Apresoline) 10 mg SLOW IVP Q4H PRN PRN Reason: Systolic BP > 180 Dextrose/Water (D5w) 1,000 mls @ 0 mls/hr IV .Q0M PRN; As Directed PRN Reason: Hypoglycemia Meropenem 500 mg/ Sodium (Chloride) 100 mls @ 200 mls/hr IVPB DAILY [facility] Last Admin: 12/24/17 09:34 Dose: 100 mls Insulin Human Lispro (Humalog) 0 units SC .MODERATE SLIDING SC PRN PRN Reason: Moderate Correctional Scale Insulin Human Lispro (Humalog) 0 units SC .BEDTIME SLIDING SC PRN PRN Reason: Bedtime Correctional Scale Loperamide HCl (Imodium) 2 mg PO PRN PRN PRN Reason: Diarrhea/Loose Stools Loratadine (Claritin) 10 mg PO DAILYPRN PRN PRN Reason: Sinus Symptoms Magnesium Hydroxide (Milk Of Magnesium) 30 ml PO DAILYPRN PRN PRN Reason: Constipation Mineral Oil/White Petrolatum (Eucerin Cream) 0 gm TOP BIDPRN PRN PRN Reason: Dry Skin Nitroglycerin (Nitrostat) 0.4 mg SL Q5MIN PRN PRN Reason: Chest Pain Ondansetron HCl (Zofran Odt) 4 mg PO Q6H PRN PRN Reason: Nausea/Vomiting Ondansetron HCl (Zofran) 4 mg IVP Q6H PRN PRN Reason: Nausea/Vomiting Phenol (Chloraseptic [place] 180 Ml Bot) 0 ml PO PRN PRN PRN Reason: Sore Throat Senna (Senokot) 2 tab PO HSPRN PRN PRN Reason: Constipation Sodium Bicarbonate (Bicarbonate, Sodium) 650 mg PO TID [facility] Last Admin: 12/24/17 09:33 Dose: 650 mg Sodium Chloride ([place] Nasal [place] 0.65%) 0 ml EA NARE QIDPRN PRN PRN Reason: Nasal Congestion Sodium Chloride (Flush - Normal Saline) 10 ml IVF Q12HR [facility] Last Admin: 12/24/17 09:42 Dose: 10 ml Sodium Chloride (Flush - Normal Saline) 10 ml IVF PRN PRN PRN Reason: Saline Flush Vitamin B Complex/Vit C/Folic Acid (Nephro-Cecile Tablet) 1 tab PO DAILY [facility] Last Admin: 12/24/17 09:32 Dose: 1 tab
--- NOTE | 2017-12-24 13:38 | RAD ---
PORTABLE CHEST: History: Dyspnea. Comparison: 12-22-17 FINDINGS/IMPRESSION: There is left perihilar infiltrate. There is cardiomegaly and vascular congestion. Small bilateral ef fusions. Cardiomegaly and post op sternotomy change with aortic calcification. POS: NINA
[2017-12-25 05:55] LABS: #Eosinphils 0.2 thou/uL (0.0-0.7); #Lymphocytes 0.5 thou/uL (1.20-3.40); #Monocytes 0.5 thou/uL (0.11-0.59); #Neutrophils 3.8 thou/uL (1.40-6.50); %Basophils 0.4 % (0.0-1.0); %Eosinophils 3.1 % (0.0-10.0); %Lymphocytes 9.1 % (21.0-51.0); %Monocytes 10.1 % (0.0-10.0); %Neutrophils 77.4 % (42.0-75.0); Hemoglobin 8.9 g/dL (12.0-16.0); Mean Corpuscular HGB CONC 31.2 g/dL (32.0-36.0); Mean Corpuscular Hemoglobin 34.9 pg (27.0-31.0); Mean Platelet Volume 10.4 fL (7.4-10.4); Platelet Count 73 thou/uL (130-400); RBC Distribution Width 20.1 % (11.5-14.5); Red Blood Cell (RBC) Count 2.55 mill/uL (4.20-5.40); White Blood Cell (WBC) Count 4.9 thou/uL (4.8-10.8)
[2017-12-25] MEDS ORDERED: Furosemide 100 MG/10 ML VIAL SLOW IVP SCH (06:00)
[2017-12-25 06:07] LABS: Anion Gap 19 mmol/L (10-20); BUN (Urea Nitrogen) 77 mg/dL (9.8-20.1); Calc. Creatinine Clearance 8 mL/min (70-130); Calcium 8.3 mg/dL (7.8-10.44); Carbon Dioxide 16 mmol/L (23-31); Chloride 109 mmol/L (98-107); Estimated GFR-MDRD 6; Glucose 170 mg/dL (83-110); Potassium 5.1 mmol/L (3.5-5.1); Sodium 139 mmol/L (136-145)
[2017-12-25] MEDS ORDERED: Epoetin (ESRD) 10,000 UNITS/ML VIAL SC SCH (06:30)
[2017-12-25 07:48] LABS: Bilirubin Moderate (Negative); Blood, Urine Large (Negative); Glucose, Urine (Dipstick) Negative (Negative); Leukocyte Large (Negative); Protein, Urine (Dipstick) > or equal to 300 mg/dL (Neg-Trace); pH, Urine 5.5 (5.0-9.0)
[2017-12-25 07:49] LABS: Clarity Turbid (Clear)
[2017-12-25 08:17] LABS: Bacteria/HPF Rare-Few HPF (None Seen); Hyaline Casts/LPF 0-3 HYALINE CAST LPF (0-3 Hyaline); RBC/HPF GREATER THAN 50-TNTC HPF (0-3); Squamous Epithelial 0-3 HPF (0-3); Transitional Epithelial 0-3 HPF (0-3); Yeast-All Forms 4+ HPF (None Seen)
[2017-12-25 08:18] LABS: Nitrite Negative (Negative)
[2017-12-25] MEDS ORDERED: Metoprolol Tartrate 5 MG/5 ML VIAL ONE (08:34)
[2017-12-25] MEDS ORDERED: Non-Formulary Item 1 EACH (Vitamin B Complex [B Complex] 1 TAB) PO SCH (09:00)
[2017-12-25] MEDS ORDERED: POLYETHYLENE GLYCOL 17 GM PO SCH (09:00)
[2017-12-25] MEDS ORDERED: FLAX PO SCH (09:00)
[2017-12-25] MEDS ORDERED: Clopidogrel Bisulfate 75 MG TAB PO SCH (09:00)
[2017-12-25] MEDS ORDERED: FISH OIL PO SCH (09:00)
[2017-12-25] MEDS ORDERED: Non-Formulary Item 1 EACH (Ferrous Sulfate [Iron] 325 MG) PO SCH (09:00)
[2017-12-25] MEDS ORDERED: [UNRECOGNIZED DRUG - OTHER] PO SCH (09:00)
[2017-12-25] MEDS ORDERED: BORAGE PO SCH (09:00)
[2017-12-25] MEDS: Stress 600 With Zinc 1 TAB PO SCH ×2 (09:39→21:42)
[2017-12-25] MEDS: Fish Oil 1,000 MG CAP PO SCH ×2 (09:39→21:32)
[2017-12-25] MEDS: Aspirin 81 mg Enteric Coated Tablet PO SCH (09:41)
[2017-12-25] MEDS: Ferrous Sulfate 325 MG TAB PO SCH ×2 (09:41→21:31)
[2017-12-25] MEDS: Folic Acid/Vit B Comp W-C PO SCH (09:41)
[2017-12-25] MEDS: Sodium Bicarbonate Tab 325 MG TAB PO SCH ×3 (09:42→21:30)
[2017-12-25] MEDS: Carvedilol 6.25 MG TAB PO SCH ×2 (09:42→21:31)
[2017-12-25] MEDS: Polyethylene Glycol 3350 17 GM Packet PO SCH (09:43)
[2017-12-25] MEDS: Meropenem 500 MG in Sodium Chloride 0.9% 100 ML IVPB SCH (09:53)
[2017-12-25] MEDS ORDERED: Epoetin 40,000 UNITS/ML VIAL SC SCH (10:00)
--- NOTE | 2017-12-25 10:14 | PDOC.PN ---
- Subjective Encounter Start Date: 12/25/17 Encounter Start Time: 07:00 Patient seen and examined for renal failure. today pt is more disoriented, No overnight events - Objective Resuscitation Status: Resuscitation Status FULL:Full Resuscitation MAR Reviewed: Yes Vital Signs & Weight: Vital Signs (12 hours) Temp Pulse Resp BP BP Pulse Ox 12/25/17 09:42 112/55 L 12/25/17 08:00 98.6 F 79 17 112/55 L 93 L 12/25/17 07:00 74 22 H 95 12/25/17 04:00 99.6 F 71 18 130/69 94 L 12/25/17 00:28 72 18 98 12/25/17 00:00 96.6 F L 69 16 139/63 94 L Weight Admit Weight 168 lb 1.6 oz Weight 183 lb 12.8 oz I&O: 12/24/17 12/25/17 12/26/17 06:59 06:59 06:59 Intake Total 1990 Output Total 427 Balance 1563 Result Diagrams: 12/25/17 05:26 12/25/17 05:26 Additional Labs: Accuchecks 12/25/17 12/24/17 12/24/17 05:58 20:43 16:50 POC Glucose 179 H 216 H 162 H 12/24/17 11:04 POC Glucose 163 H Radiology Reviewed by me: Yes (chest xray) EKG Reviewed by me: Yes (nsr) Phys Exam - Physical Examination Constitutional: NAD HEENT: PERRLA, sclera anicteric dry MM Neck: no JVD, supple few scattered rales, few wheezing Cardiovascular: RRR, no significant murmur, no rub Gastrointestinal: soft, non-tender, no distention, positive bowel sounds Musculoskeletal: pulses present, edema present edema upper extrimity saunders+ unable to examine as she is dioriented Lymphatic: no nodes Deviation from normal: disoriented Skin: no rash, normal turgor Dx/Plan (1) Acute metabolic encephalopathy Code(s): G93.41 - METABOLIC ENCEPHALOPATHY Status: Acute Comment: (2) Acute worsening of stage 4 chronic kidney disease Code(s): N28.9 - DISORDER OF KIDNEY AND URETER, UNSPECIFIED; N18.4 - CHRONIC KIDNEY DISEASE, STAGE 4 (SEVERE) Status: Acute Comment: (3) Demand ischemia of myocardium Code(s): I24.8 - OTHER FORMS OF ACUTE ISCHEMIC HEART DISEASE Status: Acute (4) Hyperkalemia Code(s): E87.5 - HYPERKALEMIA Status: Acute (5) Sepsis with acute organ dysfunction Code(s): A41.9 - SEPSIS, UNSPECIFIED ORGANISM; R65.20 - SEVERE SEPSIS WITHOUT SEPTIC SHOCK Status: Acute (6) Thrombocytopenia Code(s): D69.6 - THROMBOCYTOPENIA, UNSPECIFIED Status: Acute (7) UTI (urinary tract infection), bacterial Code(s): N39.0 - URINARY TRACT INFECTION, SITE NOT SPECIFIED; A49.9 - BACTERIAL INFECTION, UNSPECIFIED Status: Acute Comment: (8) Acidosis, metabolic Code(s): E87.2 - ACIDOSIS Status: Chronic Comment: due to renal failure (9) Anemia of renal disease Code(s): D63.1 - ANEMIA IN CHRONIC KIDNEY DISEASE Status: Chronic (10) Anxiety and depression Code(s): F41.9 - ANXIETY DISORDER, UNSPECIFIED; F32.9 - MAJOR DEPRESSIVE DISORDER, SINGLE EPISODE, UNSPECIFIED Status: Chronic (11) CAD (coronary artery disease) Code(s): I25.10 - ATHSCL HEART DISEASE OF [place] CORONARY ARTERY W/O ANG PCTRS Status: Chronic (12) Chronic pain Code(s): G89.29 - OTHER CHRONIC PAIN Status: Chronic (13) Diabetes type 2, controlled Code(s): E11.9 - TYPE 2 DIABETES MELLITUS WITHOUT COMPLICATIONS Status: Chronic (14) Dyslipidemia Code(s): E78.5 - HYPERLIPIDEMIA, UNSPECIFIED Status: Chronic (15) Hypoalbuminemia Code(s): E88.09 - OTH DISORDERS OF PLASMA-PROTEIN METABOLISM, NEC Status: Chronic (16) Macrocytic anemia Code(s): D53.9 - NUTRITIONAL ANEMIA, UNSPECIFIED Status: Chronic (17) Obesity (BMI 30-39.9) Code(s): E66.9 - OBESITY, UNSPECIFIED Status: Chronic (18) Peripheral vascular disease due to secondary diabetes Code(s): E13.51 - OTH DIABETES W DIABETIC PERIPHERAL ANGIOPATHY W/O GANGRENE Status: Chronic (19) Pneumonia Code(s): J18.9 - PNEUMONIA, UNSPECIFIED ORGANISM Status: Acute Qualifiers: Laterality: left - Plan cont current plan of care, plan discussed w/ family, continue antibiotics, PT/OT , social worker aide * pt is appears more worse today, her creatinine is still elevated, seems like she has uremic encephalopathy * daughter bedside agreed today to start temporary HD, Dr Jeffery will see later and he will finalize decision * prognosis is guarded * continue current treatment as below * symptomatic treatment * discussed with daughter today. * continue meropenam for UTI and possible pneumonia Review of Systems - Review of Systems Other: unable to review today as pt is encephalopathic - Medications/Allergies Allergies/Adverse Reactions: Allergies Allergy/AdvReac Type Severity Reaction Status Date / Time diltiazem Allergy Verified 10/20/17 01:07 glipizide Allergy Verified 10/20/17 01:07 metformin Allergy Verified 10/20/17 01:07 metoprolol Allergy Verified 10/20/17 01:07 pravastatin [From Pravachol] Allergy Verified 10/20/17 01:07 promethazine Allergy Verified 10/20/17 01:07 Medications: Current Medications Acetaminophen (Tylenol) 650 mg PO Q4H PRN PRN Reason: Headache/Fever or Pain Al Hydroxide/Mg Hydroxide (Maalox) 30 ml PO Q6H PRN PRN Reason: Heartburn or Indigestion Albuterol/Ipratropium (Duoneb) 3 ml NEB [id number] [facility] Last Admin: 12/25/17 07:00 Dose: 3 ml Albuterol/Ipratropium (Duoneb) 3 ml NEB [id number] PRN PRN Reason: SOB &/or Wheezing Amitriptyline HCl (Elavil) 25 mg PO HS [facility] Artificial Tears (Tears Renewed 15ml Bottle) 0 drop EA EYE PRN PRN PRN Reason: Dry Eyes Aspirin (Ecotrin) 81 mg PO DAILY [facility] Last Admin: 12/25/17 09:41 Dose: 81 mg Atorvastatin Calcium (Lipitor) 20 mg PO QPM [facility] Carvedilol (Coreg) 6.25 mg PO BID [facility] Last Admin: 12/25/17 09:42 Dose: 6.25 mg Clopidogrel Bisulfate (Plavix) 75 mg PO DAILY [facility] Last Admin: 12/25/17 09:42 Dose: 75 mg Coenzyme Q10 (Coenzyme Q10) 200 mg PO HS [facility] Dextrose/Water (Dextrose 50%) 25 gm SLOW IVP PRN PRN PRN Reason: Hypoglycemia Epoetin Elijah (Procrit) 40,000 units SC Q7D [facility] Ferrous Sulfate (Feosol) 325 mg PO BID [facility] Last Admin: 12/25/17 09:41 Dose: 325 mg Fish Oil (Fish Oil) 2,000 mg PO BID [facility] Last Admin: 12/25/17 09:39 Dose: 2,000 mg Glucagon (Glucagon) 1 mg IM PRN PRN PRN Reason: Hypoglycemia Guaifenesin (Robitussin Sf) 200 mg PO Q4H PRN PRN Reason: Cough Hydralazine HCl (Apresoline) 10 mg SLOW IVP Q4H PRN PRN Reason: Systolic BP > 180 Dextrose/Water (D5w) 1,000 mls @ 0 mls/hr IV .Q0M PRN; As Directed PRN Reason: Hypoglycemia Meropenem 500 mg/ Sodium (Chloride) 100 mls @ 200 mls/hr IVPB DAILY [facility] Last Admin: 12/25/17 09:53 Dose: 100 mls Insulin Human Lispro (Humalog) 0 units SC .MODERATE SLIDING SC PRN PRN Reason: Moderate Correctional Scale Insulin Human Lispro (Humalog) 0 units SC .BEDTIME SLIDING SC PRN PRN Reason: Bedtime Correctional Scale Loperamide HCl (Imodium) 2 mg PO PRN PRN PRN Reason: Diarrhea/Loose Stools Loratadine (Claritin) 10 mg PO DAILYPRN PRN PRN Reason: Sinus Symptoms Magnesium Hydroxide (Milk Of Magnesium) 30 ml PO DAILYPRN PRN PRN Reason: Constipation Mineral Oil/White Petrolatum (Eucerin Cream) 0 gm TOP BIDPRN PRN PRN Reason: Dry Skin Multivitamins/Zinc (Stress 600 With Zinc) 1 tab PO BID [facility] Last Admin: 12/25/17 09:39 Dose: 1 tab Nitroglycerin (Nitrostat) 0.4 mg SL Q5MIN PRN PRN Reason: Chest Pain Ondansetron HCl (Zofran Odt) 4 mg PO Q6H PRN PRN Reason: Nausea/Vomiting Ondansetron HCl (Zofran) 4 mg IVP Q6H PRN PRN Reason: Nausea/Vomiting Pantoprazole Sodium (Protonix) 40 mg PO DAILY [facility] Last Admin: 12/25/17 09:41 Dose: 40 mg Phenol (Chloraseptic [place] 180 Ml Bot) 0 ml PO PRN PRN PRN Reason: Sore Throat Polyethylene Glycol (Miralax) 17 gm PO DAILY [facility] Last Admin: 12/25/17 09:43 Dose: Not Given Senna (Senokot) 2 tab PO HSPRN PRN PRN Reason: Constipation Sertraline HCl (Zoloft) 100 mg PO HS [facility] Sodium Bicarbonate (Bicarbonate, Sodium) 650 mg PO TID [facility] Last Admin: 12/25/17 09:42 Dose: 650 mg Sodium Chloride ([place] Nasal [place] 0.65%) 0 ml EA NARE QIDPRN PRN PRN Reason: Nasal Congestion Sodium Chloride (Flush - Normal Saline) 10 ml IVF Q12HR [facility] Last Admin: 12/25/17 09:44 Dose: 10 ml Sodium Chloride (Flush - Normal Saline) 10 ml IVF PRN PRN PRN Reason: Saline Flush Vitamin B Complex/Vit C/Folic Acid (Nephro-Cecile Tablet) 1 tab PO DAILY [facility] Last Admin: 12/25/17 09:41 Dose: 1 tab
[2017-12-25] MEDS ORDERED: Lidocaine 1% (PF) 30 ML VIAL SC SCH (11:00)
[2017-12-25] MEDS ORDERED: Heparin 1,000 UNITS/ML VIAL ONE (11:11)
--- NOTE | 2017-12-25 12:13 | PRG ---
DATE OF SERVICE: 12/25/2017 SUBJECTIVE: Ms. York is an 82-year-old female who was admitted for mental status change . In addition, a repeat chest x-ray shows increased lung markings. For this reason, it was decided to hold off the volume repletion and start her on Lasix. She did make some urine output of about a t otal of 350 mL, this in spite of a big dose of Lasix. The family yesterday was hesitant to proceed w ith dialysis. I did explain to them, they can consider trying it and then discontinuing it if they t hink the patient is not improving. For those reason, we will initiate dialysis today. A surgical co nsult will be done for placement of dialysis catheter. Her mentation is somewhat decreased today. OBJECTIVE: VITAL SIGNS: Blood pressure 112/55, heart rate 79, respiratory rate 17, temperature 98.6, pulse ox 9 3%. GENERAL: Awake, lethargic, not in overt distress, obese. SKIN: Adequate turgor. HEENT: Slightly pale conjunctivae, anicteric sclerae. NECK: No neck mass, no carotid bruits, no JVD. CHEST: No deformities. LUNGS: Decreased breath sounds. HEART: Normal sinus rhythm. No murmur, no gallops, no rubs. ABDOMEN: Globular, soft, nontender. EXTREMITIES: Positive for edema. IMAGING: Chest x-ray of 12/24/2017 -- reviewed shows increased lung markings with small bilateral ef fusions. ASSESSMENT AND PLAN: Acute kidney injury/chronic renal failure, unimproved renal function. Increase volume. We will initiate dialysis. Surgical consult has been done. The daughter has decided to at least do a trial of hemodialysis. Palliative care has been involved with this patient, according to the daughter. We will discontinue the Lasix. I have instructed the dialysis nurses for a 1.5 hour hemodialysis tod ay and 2-hour hemodialysis in a.m. Overall, prognosis remains poor.
[2017-12-25 12:45] VITALS: BMI 37.1
--- NOTE | 2017-12-25 15:38 | CON ---
DATE OF CONSULTATION: 12/25/2017 GENERAL SURGERY CONSULT CHIEF COMPLAINT: Acute exacerbation of chronic renal insufficiency in need of urgent hemodialysis. HISTORY OF PRESENT ILLNESS: The patient is an 82-year-old female with known renal insufficiency that became much worse. She has retained quite a bit of fluid. Her potassium is climbing and asked me f or urgent dialysis access. PAST MEDICAL HISTORY: Significant for altered mental status, anemia, pneumonia, diabetes insulin-dep endent and coronary artery disease. PAST SURGICAL HISTORY: Bladder sling, carpal tunnel, cataracts, appendectomy, coronary artery bypass graft, cholecystectomy, tracheostomy and PEG placement. MEDICATIONS: Include calcium, cranberry, glucosamine, cilostazol, hydralazine, isosorbide, fish oil, iron, Lasix, carvedilol, hydrocodone, amitriptyline, gabapentin, sertraline, COQ10, multivitamins, a spirin, Crestor, Humalog, pantoprazole, sodium bicarbonate and Epogen. SOCIAL HISTORY: She lives with her daughter. No tobacco, no alcohol. PHYSICAL EXAMINATION: She is obtunded on oxygen with quite a bit of anasarca. Daughter is at bedsid e. PLAN: Right femoral vein dialysis catheter placement. CONSENT: I have discussed the planned procedure with the daughter who understands risks and gives in formed consent.
--- NOTE | 2017-12-25 16:27 | OP ---
PREOPERATIVE DIAGNOSIS: Acute renal failure. SURGEON: Aly Hewitt M.D. PROCEDURE PERFORMED: Dialysis catheter placement. INDICATIONS: The patient is an 82-year-old female in acute renal failure who needs dialysis urgently . FINDINGS: Good placement, right femoral vein. PROCEDURE: After informed consent was obtained, the patient was placed in supine position. Her groi n area was prepped and draped in usual fashion. Local anesthesia infiltrated subcutaneously and deep and introducer needle was inserted into the vein. The J-wire threaded easily. The skin was incised with an 11 blade. The dilators were used to enlarge the opening. Then, the dialysis catheter was i nserted over the wire. Each of the ports aspirated. Good backflow of venous blood, flushed with hep arinized saline. This was sutured in place with 3-0 nylon suture. Sterile bandage applied. The didier ent tolerated the procedure well.
[2017-12-25 17:35] LABS: HBSAB Concentration 0.62 mIU/mL; HBSAg Index 0.18 S/CO (0-0.99); Hep B Surf AB Non-Reactive (NonReactive); Hep B Surf Ag Non-Reactive S/CO (NonReactive); Hep C IgG Ab Non-Reactive (NonReactive); Hep C Index 0.14 S/CO (0-0.79)
[2017-12-25] MEDS ORDERED: Non-Formulary Item 1 EACH (Ubidecarenone [Co Q-10] 200 MG) PO SCH (21:00)
[2017-12-25] MEDS: Ubidecarenone 50 MG CAP PO SCH (21:30)
[2017-12-25] MEDS: Atorvastatin Calcium 20 MG TAB PO SCH (21:30)
[2017-12-25] MEDS: Amitriptyline HCl 25 MG TAB PO SCH (21:32)
[2017-12-26] MEDS: HYDROcodone/Acetaminophen 10/325 mg Tablet PO PRN ×2 (02:04→21:33)
[2017-12-26] MEDS: Stress 600 With Zinc 1 TAB PO SCH ×2 (09:05→21:32)
[2017-12-26] MEDS: Folic Acid/Vit B Comp W-C PO SCH (09:05)
[2017-12-26] MEDS: Carvedilol 6.25 MG TAB PO SCH ×2 (09:05→21:33)
[2017-12-26] MEDS: Aspirin 81 mg Enteric Coated Tablet PO SCH (09:05)
[2017-12-26] MEDS: Sodium Bicarbonate Tab 325 MG TAB PO SCH ×3 (09:05→21:32)
[2017-12-26] MEDS: Ferrous Sulfate 325 MG TAB PO SCH ×2 (09:05→21:33)
[2017-12-26] MEDS: Fish Oil 1,000 MG CAP PO SCH ×2 (09:08→21:32)
[2017-12-26] MEDS: Polyethylene Glycol 3350 17 GM Packet PO SCH (09:09)
[2017-12-26] MEDS: Meropenem 500 MG in Sodium Chloride 0.9% 100 ML IVPB SCH (09:09)
[2017-12-26 09:24] LABS: ALT (SGPT) 11 U/L (8-55); AST (SGOT) 16 U/L (5-34); Albumin 3.5 g/dL (3.4-4.8); Alkaline Phosphatase 73 U/L (40-150); Anion Gap 17 mmol/L (10-20); BUN (Urea Nitrogen) 62 mg/dL (9.8-20.1); Bilirubin, Total 0.9 mg/dL (0.2-1.2); Calc. Creatinine Clearance 9 mL/min (70-130); Calcium 8.3 mg/dL (7.8-10.44); Carbon Dioxide 22 mmol/L (23-31); Chloride 106 mmol/L (98-107); Estimated GFR-MDRD 7; Globulin 2.9 g/dL (2.4-3.5); Glucose 160 mg/dL (83-110); Phosphorus 5.5 mg/dL (2.3-4.7); Potassium 4.5 mmol/L (3.5-5.1); Protein, Total 6.4 g/dL (6.0-8.3); Sodium 140 mmol/L (136-145)
[2017-12-26 09:30] LABS: INR-International Normal Ratio 1.6; Prothrombin Time 19.1 SEC (12.0-14.7)
[2017-12-26 09:34] LABS: #Eosinphils 0.2 thou/uL (0.0-0.7); #Lymphocytes 0.5 thou/uL (1.20-3.40); #Monocytes 0.5 thou/uL (0.11-0.59); #Neutrophils 2.6 thou/uL (1.40-6.50); %Eosinophils 5.1 % (0.0-10.0); %Lymphocytes 13.9 % (21.0-51.0); %Monocytes 13.1 % (0.0-10.0); %Neutrophils 66.9 % (42.0-75.0); Mean Corpuscular HGB CONC 31.1 g/dL (32.0-36.0); Mean Corpuscular Hemoglobin 34.8 pg (27.0-31.0); Mean Platelet Volume 10.1 fL (7.4-10.4); Platelet Count 62 thou/uL (130-400); RBC Distribution Width 19.9 % (11.5-14.5); Red Blood Cell (RBC) Count 2.29 mill/uL (4.20-5.40); White Blood Cell (WBC) Count 3.9 thou/uL (4.8-10.8)
--- NOTE | 2017-12-26 10:37 | PDOC.PN ---
- Subjective Encounter Start Date: 12/26/17 Encounter Start Time: 07:00 Patient seen and examined for esrd. she had trialysis catheter in right groin, that was bleeding but stopped after pressure - Objective Resuscitation Status: Resuscitation Status FULL:Full Resuscitation MAR Reviewed: Yes Vital Signs & Weight: Vital Signs (12 hours) Temp Pulse Resp BP BP Pulse Ox 12/26/17 09:05 121/53 L 12/26/17 08:00 97.5 F L 65 18 121/53 L 95 12/26/17 07:06 96 12/26/17 07:05 62 16 12/26/17 03:36 97.2 F L 63 20 116/54 L 93 L 12/26/17 00:36 71 22 H 99 12/26/17 00:00 98.9 F 74 22 H 136/60 94 L Weight Admit Weight 168 lb 1.6 oz Weight 181 lb 7.047 oz I&O: 12/25/17 12/26/17 12/27/17 06:59 06:59 06:59 Intake Total 1990 840 Output Total 427 1999 Balance 1563 -1160 Result Diagrams: 12/26/17 08:43 12/26/17 08:43 Additional Labs: Accuchecks 12/26/17 12/26/17 12/25/17 06:49 05:19 21:31 POC Glucose 164 H 190 H 177 H 12/25/17 10:53 POC Glucose 196 H EKG Reviewed by me: Yes Phys Exam - Physical Examination Constitutional: NAD HEENT: PERRLA, moist MMs, sclera anicteric Neck: no JVD, supple Respiratory: no wheezing, no rales, no rhonchi reduced air entry at base Cardiovascular: RRR, no significant murmur, no rub Gastrointestinal: soft, non-tender, no distention, positive bowel sounds Musculoskeletal: pulses present edema reducing Neurological: non-focal Lymphatic: no nodes Psychiatric: normal affect Skin: no rash, normal turgor Dx/Plan (1) Acute metabolic encephalopathy Code(s): G93.41 - METABOLIC ENCEPHALOPATHY Status: Acute Comment: (2) Acute worsening of stage 4 chronic kidney disease Code(s): N28.9 - DISORDER OF KIDNEY AND URETER, UNSPECIFIED; N18.4 - CHRONIC KIDNEY DISEASE, STAGE 4 (SEVERE) Status: Acute Comment: (3) Demand ischemia of myocardium Code(s): I24.8 - OTHER FORMS OF ACUTE ISCHEMIC HEART DISEASE Status: Acute (4) Hyperkalemia Code(s): E87.5 - HYPERKALEMIA Status: Acute (5) Sepsis with acute organ dysfunction Code(s): A41.9 - SEPSIS, UNSPECIFIED ORGANISM; R65.20 - SEVERE SEPSIS WITHOUT SEPTIC SHOCK Status: Acute (6) Thrombocytopenia Code(s): D69.6 - THROMBOCYTOPENIA, UNSPECIFIED Status: Acute (7) UTI (urinary tract infection), bacterial Code(s): N39.0 - URINARY TRACT INFECTION, SITE NOT SPECIFIED; A49.9 - BACTERIAL INFECTION, UNSPECIFIED Status: Acute Comment: (8) Acidosis, metabolic Code(s): E87.2 - ACIDOSIS Status: Chronic Comment: due to renal failure (9) Anemia of renal disease Code(s): D63.1 - ANEMIA IN CHRONIC KIDNEY DISEASE Status: Chronic (10) Anxiety and depression Code(s): F41.9 - ANXIETY DISORDER, UNSPECIFIED; F32.9 - MAJOR DEPRESSIVE DISORDER, SINGLE EPISODE, UNSPECIFIED Status: Chronic (11) CAD (coronary artery disease) Code(s): I25.10 - ATHSCL HEART DISEASE OF [place] CORONARY ARTERY W/O ANG PCTRS Status: Chronic (12) Chronic pain Code(s): G89.29 - OTHER CHRONIC PAIN Status: Chronic (13) Diabetes type 2, controlled Code(s): E11.9 - TYPE 2 DIABETES MELLITUS WITHOUT COMPLICATIONS Status: Chronic (14) Dyslipidemia Code(s): E78.5 - HYPERLIPIDEMIA, UNSPECIFIED Status: Chronic (15) Hypoalbuminemia Code(s): E88.09 - OTH DISORDERS OF PLASMA-PROTEIN METABOLISM, NEC Status: Chronic (16) Macrocytic anemia Code(s): D53.9 - NUTRITIONAL ANEMIA, UNSPECIFIED Status: Chronic (17) Obesity (BMI 30-39.9) Code(s): E66.9 - OBESITY, UNSPECIFIED Status: Chronic (18) Peripheral vascular disease due to secondary diabetes Code(s): E13.51 - OTH DIABETES W DIABETIC PERIPHERAL ANGIOPATHY W/O GANGRENE Status: Chronic (19) Pneumonia Code(s): J18.9 - PNEUMONIA, UNSPECIFIED ORGANISM Status: Acute Qualifiers: Laterality: left - Plan cont current plan of care, plan discussed w/ family, continue antibiotics, PT/OT , psychiatric social worker, respiratory therapy * dc plavix for now due to bleeding at dialysis catheter site * HD as per nephrology * medication reviewed as below * symptomatic treatment * discussed with daughter * monitor on tele * continue meropenam * she will need permanent dialysis access. Review of Systems - Review of Systems Other: not reliable with pt as pt still has confusion - Medications/Allergies Allergies/Adverse Reactions: Allergies Allergy/AdvReac Type Severity Reaction Status Date / Time diltiazem Allergy Verified 10/20/17 01:07 glipizide Allergy Verified 10/20/17 01:07 metformin Allergy Verified 10/20/17 01:07 metoprolol Allergy Verified 10/20/17 01:07 pravastatin [From Pravachol] Allergy Verified 10/20/17 01:07 promethazine Allergy Verified 10/20/17 01:07 Medications: Current Medications Acetaminophen (Tylenol) 650 mg PO Q4H PRN PRN Reason: Headache/Fever or Pain Hydrocodone Bitart/Acetaminophen ([place] 10/325) 1 tab PO Q6H PRN PRN Reason: Pain Last Admin: 12/26/17 02:04 Dose: 1 tab Al Hydroxide/Mg Hydroxide (Maalox) 30 ml PO Q6H PRN PRN Reason: Heartburn or Indigestion Albuterol/Ipratropium (Duoneb) 3 ml NEB [id number] [facility] Last Admin: 12/26/17 07:05 Dose: 3 ml Albuterol/Ipratropium (Duoneb) 3 ml NEB [id number] PRN PRN Reason: SOB &/or Wheezing Amitriptyline HCl (Elavil) 25 mg PO [facility] Last Admin: 12/25/17 21:32 Dose: 25 mg Artificial Tears (Tears Renewed 15ml Bottle) 0 drop EA EYE PRN PRN PRN Reason: Dry Eyes Aspirin (Ecotrin) 81 mg PO DAILY [facility] Last Admin: 12/26/17 09:05 Dose: 81 mg Atorvastatin Calcium (Lipitor) 20 mg PO QPM [facility] Last Admin: 12/25/17 21:30 Dose: 20 mg Carvedilol (Coreg) 6.25 mg PO BID [facility] Last Admin: 12/26/17 09:05 Dose: 6.25 mg Coenzyme Q10 (Coenzyme Q10) 200 mg PO [facility] Last Admin: 12/25/17 21:30 Dose: 200 mg Dextrose/Water (Dextrose 50%) 25 gm SLOW IVP PRN PRN PRN Reason: Hypoglycemia Epoetin Elijah (Procrit) 40,000 units SC Q7D [facility] Last Admin: 12/25/17 11:07 Dose: 40,000 units Ferrous Sulfate (Feosol) 325 mg PO BID [facility] Last Admin: 12/26/17 09:05 Dose: 325 mg Fish Oil (Fish Oil) 2,000 mg PO BID [facility] Last Admin: 12/26/17 09:08 Dose: 2,000 mg Glucagon (Glucagon) 1 mg IM PRN PRN PRN Reason: Hypoglycemia Guaifenesin (Robitussin Sf) 200 mg PO Q4H PRN PRN Reason: Cough Hydralazine HCl (Apresoline) 10 mg SLOW IVP Q4H PRN PRN Reason: Systolic BP > 180 Dextrose/Water (D5w) 1,000 mls @ 0 mls/hr IV .Q0M PRN; As Directed PRN Reason: Hypoglycemia Meropenem 500 mg/ Sodium (Chloride) 100 mls @ 200 mls/hr IVPB DAILY [facility] Last Admin: 12/26/17 09:09 Dose: 100 mls Insulin Human Lispro (Humalog) 0 units SC .MODERATE SLIDING SC PRN PRN Reason: Moderate Correctional Scale Insulin Human Lispro (Humalog) 0 units SC .BEDTIME SLIDING SC PRN PRN Reason: Bedtime Correctional Scale Loperamide HCl (Imodium) 2 mg PO PRN PRN PRN Reason: Diarrhea/Loose Stools Loratadine (Claritin) 10 mg PO DAILYPRN PRN PRN Reason: Sinus Symptoms Magnesium Hydroxide (Milk Of Magnesium) 30 ml PO DAILYPRN PRN PRN Reason: Constipation Mineral Oil/White Petrolatum (Eucerin Cream) 0 gm TOP BIDPRN PRN PRN Reason: Dry Skin Multivitamins/Zinc (Stress 600 With Zinc) 1 tab PO BID [facility] Last Admin: 12/26/17 09:05 Dose: 1 tab Nitroglycerin (Nitrostat) 0.4 mg SL Q5MIN PRN PRN Reason: Chest Pain Ondansetron HCl (Zofran Odt) 4 mg PO Q6H PRN PRN Reason: Nausea/Vomiting Ondansetron HCl (Zofran) 4 mg IVP Q6H PRN PRN Reason: Nausea/Vomiting Pantoprazole Sodium (Protonix) 40 mg PO DAILY [facility] Last Admin: 12/26/17 09:05 Dose: 40 mg Phenol (Chloraseptic [place] 180 Ml Bot) 0 ml PO PRN PRN PRN Reason: Sore Throat Polyethylene Glycol (Miralax) 17 gm PO DAILY [facility] Last Admin: 12/26/17 09:09 Dose: Not Given Senna (Senokot) 2 tab PO HSPRN PRN PRN Reason: Constipation Sertraline HCl (Zoloft) 100 mg PO HS [facility] Last Admin: 12/25/17 21:32 Dose: 100 mg Sodium Bicarbonate (Bicarbonate, Sodium) 650 mg PO TID [facility] Last Admin: 12/26/17 09:05 Dose: 650 mg Sodium Chloride ([place] Nasal [place] 0.65%) 0 ml EA NARE QIDPRN PRN PRN Reason: Nasal Congestion Sodium Chloride (Flush - Normal Saline) 10 ml IVF Q12HR [facility] Last Admin: 12/26/17 09:09 Dose: 10 ml Sodium Chloride (Flush - Normal Saline) 10 ml IVF PRN PRN PRN Reason: Saline Flush Vitamin B Complex/Vit C/Folic Acid (Nephro-Cecile Tablet) 1 tab PO DAILY [facility] Last Admin: 12/26/17 09:05 Dose: 1 tab
[2017-12-26] MEDS ORDERED: Fluconazole In NaCl,Iso-Osm 100 MG in Admixture Fee 1 EACH IVPB SCH ×2 (19:00)
[2017-12-26] MEDS: Amitriptyline HCl 25 MG TAB PO SCH (21:33)
[2017-12-26] MEDS: Atorvastatin Calcium 20 MG TAB PO SCH (21:33)
[2017-12-26] MEDS: Ubidecarenone 50 MG CAP PO SCH (21:33)
--- NOTE | 2017-12-26 21:38 | PRG ---
DATE OF SERVICE: 12/26/2017 SUBJECTIVE: Patient is seen and examined, very ill-looking. OBJECTIVE: VITAL SIGNS: Afebrile with temperature 97.2, pulse 68, respiratory rate 17, O2 sat 94% with blood pr essure 124/60. HEENT: Unremarkable. CARDIOVASCULAR: First and second heart sounds were heard. RESPIRATORY: Clear to auscultation anteriorly. ABDOMEN: Digestive system revealed obese abdomen. EXTREMITIES: Show bilateral 2+ to 3+ edema. NEUROLOGIC: Patient is somnolent but no lateralizing sign. LABORATORY INVESTIGATIONS: Showed hemoglobin of 8, BUN of with a creatinine 5.83. IMPRESSION: 1. Acute on chronic kidney disease, now dialysis dependent. 2. Worsening thrombocytopenia. 3. Prolonged bleeding status post femoral dialysis catheter placement. 4. Metabolic acidosis. 5. Type 2 diabetes. 6. Anasarca. PLAN: 1. The patient to undergo modified dialysis today in the sense that the patient to be ultrafiltrated only with a lower temperature to be able to get as much fluid as possible. 2. Discontinue Franks catheterization. 3. One-time dose of Diflucan. 4. Patient's daughter at the end of dialysis started expressing the desire to consider withdrawing h emodialysis for now. Therefore, we will hold off on dialyzing this patient tomorrow and she is to fi nalize discussion with the rest of the family as relates to possibility of withdrawing care at this p oint. 5. Further management to be dependent on the clinical course.
[2017-12-27 06:17] LABS: #Eosinphils 0.2 thou/uL (0.0-0.7); #Lymphocytes 0.6 thou/uL (1.20-3.40); #Monocytes 0.5 thou/uL (0.11-0.59); %Basophils 1.2 % (0.0-1.0); %Lymphocytes 18.1 % (21.0-51.0); %Monocytes 13.8 % (0.0-10.0); %Neutrophils 59.9 % (42.0-75.0); Hemoglobin 7.8 g/dL (12.0-16.0); Mean Corpuscular HGB CONC 31.8 g/dL (32.0-36.0); Mean Corpuscular Hemoglobin 36.1 pg (27.0-31.0); Mean Platelet Volume 9.9 fL (7.4-10.4); Platelet Count 59 thou/uL (130-400); RBC Distribution Width 19.6 % (11.5-14.5); Red Blood Cell (RBC) Count 2.17 mill/uL (4.20-5.40); White Blood Cell (WBC) Count 3.3 thou/uL (4.8-10.8)
[2017-12-27 06:23] LABS: Carbon Dioxide 19 mmol/L (23-31)
[2017-12-27 07:14] LABS: Anion Gap 18 mmol/L (10-20); BUN (Urea Nitrogen) 66 mg/dL (9.8-20.1); Calc. Creatinine Clearance 9 mL/min (70-130); Calcium 8.1 mg/dL (7.8-10.44); Chloride 106 mmol/L (98-107); Estimated GFR-MDRD 7; Glucose 171 mg/dL (83-110); Potassium 4.5 mmol/L (3.5-5.1); Sodium 140 mmol/L (136-145)
[2017-12-27] MEDS ORDERED: Heparin 1,000 UNITS/ML VIAL ONE (07:52)
[2017-12-27] MEDS: Sodium Bicarbonate Tab 325 MG TAB PO SCH ×3 (09:44→21:59)
[2017-12-27] MEDS: Folic Acid/Vit B Comp W-C PO SCH (09:44)
[2017-12-27] MEDS: Ferrous Sulfate 325 MG TAB PO SCH ×2 (09:44→22:00)
[2017-12-27] MEDS: Meropenem 500 MG in Sodium Chloride 0.9% 100 ML IVPB SCH (09:44)
[2017-12-27] MEDS: Aspirin 81 mg Enteric Coated Tablet PO SCH (09:45)
[2017-12-27] MEDS: Fish Oil 1,000 MG CAP PO SCH ×2 (09:45→21:58)
[2017-12-27] MEDS: Carvedilol 6.25 MG TAB PO SCH ×2 (09:45→22:00)
[2017-12-27] MEDS: Polyethylene Glycol 3350 17 GM Packet PO SCH (09:47)
[2017-12-27] MEDS: Stress 600 With Zinc 1 TAB PO SCH ×2 (10:13→22:00)
--- NOTE | 2017-12-27 14:07 | PDOC.PN ---
- Subjective Encounter Start Date: 12/27/17 Encounter Start Time: 14:06 Patient seen and examined, no new issues or complaints, family at bedside, requesting hospice evaluation. All questions answered. - Objective Resuscitation Status: Resuscitation Status DNR:Do Not Resuscitate Vital Signs & Weight: Vital Signs (12 hours) Temp Pulse Resp BP Pulse Ox 12/27/17 13:56 55 L 12 12/27/17 12:00 98.3 F 58 L 16 119/58 L 97 12/27/17 08:54 97.4 F L 59 L 18 97/47 L 100 12/27/17 08:45 98.3 F 58 L 16 12/27/17 08:11 96 12/27/17 08:10 53 L 12 12/27/17 03:33 98.0 F 60 17 101/51 L 95 12/27/17 02:19 96 Weight Admit Weight 168 lb 1.6 oz Weight 174 lb 13.225 oz I&O: 12/26/17 12/27/17 12/28/17 06:59 06:59 06:59 Intake Total 840 750 Output Total 2000 2200 Balance -1160 -1450 Result Diagrams: 12/27/17 05:19 12/27/17 05:19 Additional Labs: Accuchecks 12/27/17 12/27/17 12/26/17 11:23 06:15 21:00 POC Glucose 180 H 176 H 220 H Phys Exam - Physical Examination Constitutional: NAD HEENT: PERRLA, moist MMs, sclera anicteric, oral pharynx no lesions Neck: no nodes, no JVD, supple, full ROM Respiratory: no wheezing, no rales, no rhonchi Cardiovascular: RRR, no significant murmur, no rub Gastrointestinal: soft, non-tender, no distention, positive bowel sounds Musculoskeletal: pulses present, edema present (1+ pitting edema B/L UE and LE) Neurological: non-focal, normal sensation Psychiatric: normal affect, A&O x 3 Skin: no rash, normal turgor Dx/Plan (1) Acute worsening of stage 4 chronic kidney disease Code(s): N28.9 - DISORDER OF KIDNEY AND URETER, UNSPECIFIED; N18.4 - CHRONIC KIDNEY DISEASE, STAGE 4 (SEVERE) Status: Acute Comment: (2) Demand ischemia of myocardium Code(s): I24.8 - OTHER FORMS OF ACUTE ISCHEMIC HEART DISEASE Status: Acute (3) Pneumonia Code(s): J18.9 - PNEUMONIA, UNSPECIFIED ORGANISM Status: Acute Qualifiers: Laterality: left (4) CAD (coronary artery disease) Code(s): I25.10 - ATHSCL HEART DISEASE OF [place] CORONARY ARTERY W/O ANG PCTRS Status: Chronic (5) Diabetes type 2, controlled Code(s): E11.9 - TYPE 2 DIABETES MELLITUS WITHOUT COMPLICATIONS Status: Chronic (6) Obesity (BMI 30-39.9) Code(s): E66.9 - OBESITY, UNSPECIFIED Status: Chronic (7) Peripheral vascular disease due to secondary diabetes Code(s): E13.51 - OTH DIABETES W DIABETIC PERIPHERAL ANGIOPATHY W/O GANGRENE Status: Chronic - Plan * poor prognosis * hospice evaluation placed, CM consulted * DC plans to hospice once set up * stop all lab draws and vital signs for now * case and plan d/w patient and family at length, they understand and agree with this plan
--- NOTE | 2017-12-27 17:54 | EKG ---
Test Reason : WEAK/AMS Blood Pressure : / mmHG Vent. Rate : 048 BPM Atrial Rate : 052 BPM P-R Int : 000 ms QRS Dur : 080 ms QT Int : 494 ms P-R-T Axes : 000 030 013 degrees QTc Int : 441 ms Junctional rhythm Cannot rule out Anterior infarct , age undetermined Abnormal ECG Confirmed by PEPPER CÁRDENAS, IRIS Hobson ([id number]), editorial project manager KAILYN CLOUD ([id number]) on 12/27/2017 5:53:31 PM Referred By: Confirmed By:IRIS PABON MD
--- NOTE | 2017-12-27 17:54 | EKG ---
Test Reason : Blood Pressure : / mmHG Vent. Rate : 063 BPM Atrial Rate : 074 BPM P-R Int : 000 ms QRS Dur : 082 ms QT Int : 460 ms P-R-T Axes : 000 052 019 degrees QTc Int : 470 ms Sinus rhythm with complete heart block and Junctional rhythm Low voltage QRS Abnormal ECG Confirmed by PEPPER CÁRDENAS, IRIS Hobson ([id number]), image editor KAILYN CLOUD ([id number]) on 12/27/2017 5:53:43 PM Referred By: Confirmed By:IRIS PABON MD
[2017-12-27] MEDS: Atorvastatin Calcium 20 MG TAB PO SCH (21:59)
[2017-12-27] MEDS: Ubidecarenone 50 MG CAP PO SCH (21:59)
[2017-12-27] MEDS: Amitriptyline HCl 25 MG TAB PO SCH (22:01)
--- NOTE | 2017-12-28 08:24 | PDOC.PN ---
- Subjective Encounter Start Date: 12/28/17 Encounter Start Time: 08:23 Patient seen and examined, no new issues or complaints. - Objective Resuscitation Status: Resuscitation Status DNR:Do Not Resuscitate Vital Signs & Weight: Vital Signs (12 hours) Temp Pulse Resp BP BP Pulse Ox 12/28/17 07:39 95 12/28/17 07:38 58 L 16 12/28/17 04:00 97.4 F L 54 L 14 140/56 L 99 12/28/17 00:00 97.3 F L 63 16 130/62 100 12/27/17 23:25 95 12/27/17 22:00 129/58 L 12/27/17 20:45 98.2 F 60 16 99 Weight Admit Weight 168 lb 1.6 oz Weight 174 lb 13.225 oz I&O: 12/27/17 12/28/17 12/29/17 06:59 06:59 06:59 Intake Total 750 939 Output Total 2200 0 Balance -1450 939 Result Diagrams: 12/27/17 05:19 12/27/17 05:19 Additional Labs: Accuchecks 12/27/17 12/27/17 12/27/17 20:22 16:43 11:23 POC Glucose 211 H 174 H 180 H Phys Exam - Physical Examination Constitutional: NAD HEENT: PERRLA, moist MMs, sclera anicteric Neck: no nodes, no JVD, supple, full ROM Respiratory: no wheezing, no rales, no rhonchi Cardiovascular: RRR, no significant murmur, no rub Gastrointestinal: soft, non-tender, no distention, positive bowel sounds Musculoskeletal: pulses present, edema present Neurological: non-focal, normal sensation Psychiatric: normal affect, A&O x 3 Skin: no rash, normal turgor Dx/Plan (1) Acute worsening of stage 4 chronic kidney disease Code(s): N28.9 - DISORDER OF KIDNEY AND URETER, UNSPECIFIED; N18.4 - CHRONIC KIDNEY DISEASE, STAGE 4 (SEVERE) Status: Acute Comment: (2) Demand ischemia of myocardium Code(s): I24.8 - OTHER FORMS OF ACUTE ISCHEMIC HEART DISEASE Status: Acute (3) Pneumonia Code(s): J18.9 - PNEUMONIA, UNSPECIFIED ORGANISM Status: Acute Qualifiers: Laterality: left (4) CAD (coronary artery disease) Code(s): I25.10 - ATHSCL HEART DISEASE OF [place] CORONARY ARTERY W/O ANG PCTRS Status: Chronic (5) Diabetes type 2, controlled Code(s): E11.9 - TYPE 2 DIABETES MELLITUS WITHOUT COMPLICATIONS Status: Chronic (6) Obesity (BMI 30-39.9) Code(s): E66.9 - OBESITY, UNSPECIFIED Status: Chronic (7) Peripheral vascular disease due to secondary diabetes Code(s): E13.51 - OTH DIABETES W DIABETIC PERIPHERAL ANGIOPATHY W/O GANGRENE Status: Chronic - Plan * pending hospice placement * CM consulted yesterday * palliative care also following * DC once hospice set up * plan d/w patient in [place], she understands and agrees with this plan
[2017-12-28] MEDS: Meropenem 500 MG in Sodium Chloride 0.9% 100 ML IVPB SCH (09:18)
[2017-12-28] MEDS: Aspirin 81 mg Enteric Coated Tablet PO SCH (09:19)
[2017-12-28] MEDS: Sodium Bicarbonate Tab 325 MG TAB PO SCH ×2 (09:19→15:57)
[2017-12-28] MEDS: Ferrous Sulfate 325 MG TAB PO SCH (09:19)
[2017-12-28] MEDS: Folic Acid/Vit B Comp W-C PO SCH (09:20)
[2017-12-28] MEDS: Polyethylene Glycol 3350 17 GM Packet PO SCH (09:20)
[2017-12-28] MEDS: Carvedilol 6.25 MG TAB PO SCH (09:23)
[2017-12-28] MEDS: Fish Oil 1,000 MG CAP PO SCH (09:58)
[2017-12-28] MEDS: Stress 600 With Zinc 1 TAB PO SCH (10:07)
--- NOTE | 2017-12-28 10:24 | PDOC.EVN ---
Event Note - Event Note Event Note: DC SUMMARY #[id number]
[2017-12-28 16:54] VITALS: BP 133/59; TEMP 97.2
--- NOTE | 2017-12-28 19:10 | DIS ---
DATE OF ADMISSION: 12/22/2017 DATE OF DISCHARGE: 12/28/2017 ADMITTING DIAGNOSES: Sepsis, acute organ failure, acute encephalopathy, generalized weakness, demand ischemia of myocardium, urinary tract infection, acute on chronic renal failure, hyperkalemia and di abetes mellitus type 2. DISCHARGE DIAGNOSES: End-stage renal disease, multiorgan failure, encephalopathy, resolved. General ized weakness, sepsis with acute organ failure, stable demand ischemia, stable hypertension, urinary tract infection, resolved and diabetes mellitus type 2, stable. HOSPITAL COURSE: This is an 82-year-old female who was admitted to the hospital because of worsening of her weakness. Patient was noted to have urinary tract infection. The patient was admit vidal to Internal Medicine team and followed closely by Nephrology, General Surgery and Cardiology. Nitish cevallos was admitted to the telemetry floor followed in the ICU and then followed at telemetry again. After intense discussion, patient was going through a few dialysis treatments. After further progres kathrine and course of her therapy, the decision was made that given that no recovery was occurring, pall iative hospice care will be considered. The patient's family and the patient were involved in the di scussion. Collective decision was made that patient would be started on hospice care. Patient upon time of discharge denied any nausea, vomiting, diarrhea, constipation, chest pain, fevers or shortnes s of breath. Patient was to go home with home hospice. Arrangements were made by Case Management. DISPOSITION: Home with home hospice. FOLLOWUP: With PCP within 1 week. DIET: Regular diet. MEDICATIONS: Resume home medications; however, hospice Team to evaluate and provide the patient with palliative medications and comfort care medications only. ACTIVITY: As tolerated with assistance as appropriate. CONDITION: Stable. PROGNOSIS: Poor. Case and plan discussed with patient and family at length. She understands and ag sulma with this plan.
[2017-12-28] MEDS ORDERED: Carvedilol 6.25 MG TAB PO SCH (21:00)
== END 2017-12-28 17:58 | disposition home or self-care (01) | DRG 871 ==
LOC: ERS 09:35 → 2NO 11:30
PROVIDERS: ADMIT Internal Medicine; ATTEND Internal Medicine
PROC: 06HY33Z Insertion of Infusion Device into Lower Vein, Percutaneous Approach (ICD-10-PCS; principal; 2017-12-22)
PROC: 5A1D70Z Performance of Urinary Filtration, Intermittent, Less than 6 Hours Per Day (ICD-10-PCS; 2017-12-25)
DX: A41.9 Sepsis, unspecified organism (principal); I50.33 Acute on chronic diastolic (congestive) heart failure; J18.9 Pneumonia, unspecified organism; G93.41 Metabolic encephalopathy; N17.9 Acute kidney failure, unspecified; I24.8 Other forms of acute ischemic heart disease; N18.4 Chronic kidney disease, stage 4 (severe); E87.2 Acidosis; N39.0 Urinary tract infection, site not specified; J96.10 Chronic respiratory failure, unspecified whether with hypoxia or hypercapnia; E11.22 Type 2 diabetes mellitus with diabetic chronic kidney disease; I25.10 Atherosclerotic heart disease of native coronary artery without angina pectoris; Z95.5 Presence of coronary angioplasty implant and graft; E87.6 Hypokalemia; E11.21 Type 2 diabetes mellitus with diabetic nephropathy; I95.9 Hypotension, unspecified; Z95.1 Presence of aortocoronary bypass graft; M19.90 Unspecified osteoarthritis, unspecified site; D63.1 Anemia in chronic kidney disease; Z99.81 Dependence on supplemental oxygen; I73.9 Peripheral vascular disease, unspecified; F41.9 Anxiety disorder, unspecified; F32.9 Major depressive disorder, single episode, unspecified; Z88.8 Allergy status to other drugs, medicaments and biological substances; Z79.899 Other long term (current) drug therapy; Z79.82 Long term (current) use of aspirin; Z79.4 Long term (current) use of insulin; D69.6 Thrombocytopenia, unspecified; E78.5 Hyperlipidemia, unspecified; K21.9 Gastro-esophageal reflux disease without esophagitis; Z99.2 Dependence on renal dialysis; R53.81 Other malaise; R33.9 Retention of urine, unspecified; Z86.73 Personal history of transient ischemic attack (TIA), and cerebral infarction without residual deficits; Z87.01 Personal history of pneumonia (recurrent); Z79.52 Long term (current) use of systemic steroids; E66.9 Obesity, unspecified; G89.29 Other chronic pain; E88.09 Other disorders of plasma-protein metabolism, not elsewhere classified; Z68.35 Body mass index [BMI] 35.0-35.9, adult
CPT/HCPCS: 36415; 36416; 51702; 70450; 71045; 80048; 80053; 81001; 81003; 81015; 82553; 83605; 83880; 84100; 84484; 85025; 85610; 85730; 86706; 86803; 87040; 87086; 87340; 90935; 93005; 93306; 94640; 96361; 96365; 96375; A4216; G0257; G8996-GN-CK; G8997-GN-CK; J0461; J0885; J1450; J1644; J1940; J2001; J2185; J2543; J7050; J7070; J7620; P9047; Q4081